=== PATIENT | female | born 1955 | race Caucasian/White ===

== ENCOUNTER 2018-06-07 12:07 | Emergency (ER) | payer BC ==
[2018-06-07 12:48] VITALS: BP 150/75; PULSE 77; RESP 18; TEMP 98.2
--- NOTE | 2018-06-07 14:36 | ED ---
ENT HPI - General Chief complaint: ENT Stated complaint: ear pain Time Seen by Provider: 06/07/18 14:03 Source: patient, RN notes reviewed, old records reviewed Mode of arrival: ambulatory Limitations: no limitations - History of Present Illness Initial comments: Patient is a 8-year-old female who presents emergency room today with chief complaint of feeling a fullness within her left ear. Patient reports symptoms started after she took a shower. She feels like her ear is swollen. Patient states that she does not typically cleaning her ears areas she reports that she does use Q-tips. She states that her hearing feels somewhat foggy and can feel the water within the ear. - Related Data Home Medications Medication Instructions Recorded Confirmed Lisinopril [Zestril] 10 mg PO DAILY 06/07/18 06/07/18 Previous Rx's Medication Instructions Recorded Carbamide Peroxide [Debrox Otic] 5 drops BOTH EARS BID #1 bottle 06/07/18 Ciprofloxacin Ophth Soln [Cipro 10 drops LEFT EAR BID #1 bottle 06/07/18 Ophth Soln] Meclizine [Antivert] 25 mg PO BID #10 tab 06/07/18 Allergies Allergy/AdvReac Type Severity Reaction Status Date / Time No Known Allergies Allergy Verified 06/07/18 12:48 Review of Systems ROS Statement: Those systems with pertinent positive or pertinent negative responses have been documented in the HPI. ROS Other: All systems not noted in ROS Statement are negative. Past Medical History Past Medical History: Hypertension History of Any Multi-Drug Resistant Organisms: None Reported Past Surgical History: No Surgical Hx Reported Past Psychological History: No Psychological Hx Reported Smoking Status: Never smoker Past Alcohol Use History: None Reported Past Drug Use History: None Reported General Exam - General Exam Comments Initial Comments: 8-year-old female. Alert and oriented. No significant distress. Limitations: no limitations General appearance: alert, in no apparent distress Head exam: Present: atraumatic, normocephalic, normal inspection Eye exam: Present: normal appearance, PERRL, EOMI. Absent: scleral icterus, conjunctival injection, periorbital swelling ENT exam: Present: normal exam, mucous membranes moist, other (cerumen impaction left ear. Unable to visualize TM). Absent: TM's normal bilaterally Neck exam: Present: normal inspection. Absent: tenderness, meningismus, lymphadenopathy Respiratory exam: Present: normal lung sounds bilaterally. Absent: respiratory distress, wheezes, rales, rhonchi, stridor Cardiovascular Exam: Present: regular rate, normal rhythm, normal heart sounds. Absent: systolic murmur, diastolic murmur, rubs, gallop, clicks GI/Abdominal exam: Present: soft, normal bowel sounds. Absent: distended, tenderness, guarding, rebound, rigid Extremities exam: Present: normal inspection, full ROM, normal capillary refill. Absent: tenderness, pedal edema, joint swelling, calf tenderness Back exam: Present: normal inspection Neurological exam: Present: alert, oriented X3, CN II-XII intact Psychiatric exam: Present: normal affect, normal mood Skin exam: Present: warm, dry, intact, normal color. Absent: rash Course Vital Signs 06/07/18 12:45 Temperature 98.2 F Pulse Rate 77 Respiratory 18 Rate Blood Pressure 150/75 O2 Sat by Pulse 100 Oximetry Procedures - Ear Wax Removal Both Ears Ear Canal Irrigated by: other (PA) Ear Canal Irrigated With: warm saline using syringe/angiocath Ear Canal(s) Curetted: plastic scoops Results: Re-examined: cerumen removed completely (L ear), some cerumen remains ( R ear ) TM Visible: TM(s) intact, normal appearance Ear Canal: bleeding Noted (R ear) Patient Tolerated Procedure: well Complications: vertigo/dizziness Medical Decision Making - Medical Decision Making 68 year old female presents with L ear fullness. She has singificant impaction of cerumen in both ears. Patient ears irrigated with angiocath and sterile water. Cerumen removed from L ear completely, some remains in R ear. Discussed patient needs to use debrox drops. Discussed having patient use antibiotic ear drop due to scratched R ear canal. She had some dizziness with irrigation, DC with meclizine script. PAtient tolerated procedure well. Disposition Clinical Impression: Impacted cerumen of both ears Disposition: HOME SELF-CARE Condition: Good Instructions (If sedation given, give patient instructions): Cerumen Impaction (ED) Additional Instructions: Follow-up with primary care physician. ancillary antibiotic drops 5 drops in each ear twice a day. Patient should also put the direct strep smear. He may need to return to PCP or here for cerumen impaction in the right ear. Return to emergency department if any alarming signs or symptoms occur. Prescriptions: Carbamide Peroxide [Debrox Otic] 5 drops BOTH EARS BID #1 bottle Ciprofloxacin Ophth Soln [Cipro Ophth Soln] 10 drops LEFT EAR BID #1 bottle Meclizine [Antivert] 25 mg PO BID #10 tab Is patient prescribed a controlled substance at d/c from ED?: No Referrals: Melina Santa MD [Primary Care Provider] - 1-2 days Time of Disposition: 14:36
== END 2018-06-07 14:46 | disposition home or self-care (01) ==
LOC: EC 12:07
DX: H61.23 Impacted cerumen, bilateral (principal); R42 Dizziness and giddiness; I10 Essential (primary) hypertension; Z79.899 Other long term (current) drug therapy
CPT/HCPCS: 69210; 99283

== ENCOUNTER 2020-08-25 15:39 | Observation (INO) | payer BC ==
[2020-08-25 16:21] LABS: Basophils % (A) 0 %; Eosinophils # (A) 0.1 k/uL (0-0.7); Eosinophils % (A) 3 %; HCT 37.4 % (34.0-46.0); HGB 12.5 gm/dL (11.4-16.0); Lymphocytes # (A) 0.8 k/uL (1.0-4.8); Lymphocytes % (A) 22 %; MCH 33.3 pg (25.0-35.0); MCHC 33.4 g/dL (31.0-37.0); MCV 99.6 fL (80.0-100.0); Mean Platelet Volume 7.2; Monocytes # (A) 0.2 k/uL (0-1.0); Monocytes % (A) 5 %; Neutrophils # (A) 2.7 k/uL (1.3-7.7); Neutrophils % (A) 69 %; Platelet Count 138 k/uL (150-450); RBC 3.76 m/uL (3.80-5.40); RDW 14.1 % (11.5-15.5); WBC 3.9 k/uL (3.8-10.6)
--- NOTE | 2020-08-25 16:28 | CT ---
EXAMINATION TYPE: CT brain wo con DATE OF EXAM: 08/25/2020 COMPARISON: None INDICATION: Weakness and fatigue. DLP: 1086.4 mGycm, Automated exposure control for dose reduction was used. CONTRAST: None CT of the brain is performed utilizing 3 mm thick sections through the posterior fossa and 3 mm thick sections through the remaining calvarium. Study is performed within 24 hours of arrival to the hosp [facility]. No abnormal hyperdensity is present to suggest an acute intracranial hemorrhage. No mass lesion is evident. No acute infarcts are evident. Some white matter changes are within the bilateral basal ganglion. Mil d periventricular white matter changes may be present superiorly. Ventricles and sulci are appropriate for the patient age. Paranasal sinuses and mastoid air cells within the [id number] are clear. IMPRESSIONS: 1. Suggestion of some chronic appearing periventricular white matter ischemic-type changes. 2. No acute intracranial process
[2020-08-25 16:30] LABS: ALT 11 U/L (4-34); AST 20 U/L (14-36); African American GFR (CKD) >90 (>60 ml/min/1.73 sqM); Albumin 4.4 g/dL (3.5-5.0); Alkaline Phosphatase 58 U/L (38-126); Anion Gap 7 mmol/L; Blood Urea Nitrogen 10 mg/dL (7-17); Calcium 9.4 mg/dL (8.4-10.2); Carbon Dioxide 25 mmol/L (22-30); Chloride 99 mmol/L (98-107); Glucose 101 mg/dL (74-99); Magnesium 2.2 mg/dL (1.6-2.3); Non-African American GFR(CKD) >90 (>60 ml/min/1.73 sqM); Potassium 4.3 mmol/L (3.5-5.1); Sodium 131 mmol/L (137-145); Total Bilirubin 0.8 mg/dL (0.2-1.3)
[2020-08-25 16:36] LABS: Prothrombin Time 10.9 sec (9.0-12.0)
--- NOTE | 2020-08-25 16:57 | XR ---
EXAMINATION TYPE: XR chest 2V DATE OF EXAM: 08/25/2020 COMPARISON: NONE HISTORY: Weakness TECHNIQUE: 2 views FINDINGS: Heart and mediastinum are normal. Lungs are clear. Diaphragm is normal. Bony thorax is inta ct. There are chest leads. IMPRESSION: No active cardiopulmonary disease. Normal heart.
[2020-08-25 18:01] LABS: Amorphous Sediment,Urine Few /hpf; Appearance,Urine Cloudy (Clear); Bilirubin,Urine Negative (Negative); Blood,Urine Negative (Negative); Color,Urine Yellow; Glucose,Urine (UA) Negative (Negative); Ketones,Urine 2+ (Negative); Leukocyte Esterase,Urine Negative (Negative); Mucus,Urine Rare /hpf; Nitrite,Urine Negative (Negative); Protein,Urine Negative (Negative); Specific Gravity,Urine 1.013 (1.001-1.035); Squamous Epithelial Cell,Urine <1 /hpf (0-4); Urobilinogen,Urine <2.0 mg/dL (<2.0); WBC,Urine <1 /hpf (0-5)
--- NOTE | 2020-08-25 18:11 | ED ---
Weakness HPI - General Chief complaint: Weakness Stated complaint: Nausea Time Seen by Provider: 08/25/20 15:46 Source: EMS Mode of arrival: EMS Limitations: no limitations - History of Present Illness Initial comments: 64-year-old female history of essential tremor present to the ER today for chief complaint of weakness nausea increased tremor. Patient states that she has been weak since Friday as she has been very nauseated and eating and drinking less. Patient states that she also feels like her tremor has worsened. Patient states that her nauseous and worse the past 2 days but currently she is not feeling nauseated. Patient denies any chest pain pressure or shortness of breath jaw or arm pain and she denies any back pain abdominal pain fevers cough congestion she denies any vomiting diarrhea or abdominal pain. She denies any headache visual changes double vision neck stiffness. Patient denies history of anticoagulation use her atrial fibrillation. Patient has no additional complaints or concerns she states that she feels so weak and shaky that she can barely walk - Related Data Home Medications Medication Instructions Recorded Confirmed lisinopriL [Zestril] 10 mg PO DAILY 06/07/18 08/25/20 Primidone [Mysoline] 25 mg PO DAILY PRN 08/25/20 08/25/20 Primidone [Mysoline] 50 mg PO HS 08/25/20 08/25/20 prednisoLONE ACETATE 1% OPHTH 1 drops RIGHT EYE BID 08/25/20 08/25/20 [Pred Forte 1%] Allergies Allergy/AdvReac Type Severity Reaction Status Date / Time No Known Allergies Allergy Verified 08/25/20 16:49 Review of Systems ROS Statement: Those systems with pertinent positive or pertinent negative responses have been documented in the HPI. ROS Other: All systems not noted in ROS Statement are negative. Past Medical History Past Medical History: Hypertension History of Any Multi-Drug Resistant Organisms: None Reported Past Surgical History: No Surgical Hx Reported Past Psychological History: No Psychological Hx Reported Smoking Status: Former smoker Past Alcohol Use History: None Reported Past Drug Use History: None Reported General Exam - General Exam Comments Initial Comments: General: The patient is awake and alert, in no distress Eye: +3 mm pupils are equal, round and reactive to light, extra-ocular movements are intact. No nystagmus. There is normal conjunctiva bilaterally. No signs of icterus. Ears, nose, mouth and throat: There are moist mucous membranes and no oral lesions. Neck: The neck is supple, there is no tenderness or JVD. Cardiovascular: There is a regular rate and rhythm. No murmur, rub or gallop is appreciated. Respiratory: Lungs are clear to auscultation, respirations are non-labored, breath sounds are equal. No wheezes, stridor, rales, or rhonchi. Gastrointestinal: [Soft, non-distended, non-tender abdomen without masses or organomegaly noted. There is no rebound or guarding present. Musculoskeletal: Normal ROM, no tenderness. Strength 5/5. Sensation intact. Radial pulses equal bilaterally 2+. Neurological: A&O x 3. CN II-XII intact, There are no obvious motor or sensory deficits. Coordination appears grossly intact. Speech is normal. Skin: Skin is warm and dry and no rashes or lesions are noted. No leg swelling. Psychiatric: Cooperative, appropriate mood & affect, normal judgment. Limitations: no limitations Course Vital Signs 08/25/20 08/25/20 15:41 18:34 Temperature 98.7 F Pulse Rate 96 86 Respiratory 16 16 Rate Blood Pressure 146/86 175/98 O2 Sat by Pulse 97 98 Oximetry Medical Decision Making - Medical Decision Making 64yo female presenting for nausea. New-onset atrial fibrillation it appears patient is an a flutter with a 4-[address] segment abnormalities. Troponin negative. Patient denies any chest pressure or shortness of breath. Patient states she feels dehydrated and weak her tremor is quite significant in all [address] of the brain is negative chest x-ray clear at this time we will keep patient for hydration and cardiology evaluation patient is agreeable to this care plan as well as admission. Dr Graf agreeable to care plan. - Lab Data Result diagrams: 08/25/20 16:09 08/25/20 16:09 Lab Results 08/25/20 08/25/20 08/25/20 Range/Units 16:09 16:09 16:09 WBC 3.9 (3.8-10.6) k/uL RBC 3.76 L (3.80-5.40) m/uL Hgb 12.5 (11.4-16.0) gm/dL Hct 37.4 (34.0-46.0) % MCV 99.6 (80.0-100.0) fL MCH 33.3 (25.0-35.0) pg MCHC 33.4 (31.0-37.0) g/dL RDW 14.1 (11.5-15.5) % Plt Count 138 L (150-450) k/uL MPV 7.2 Neutrophils % 69 % Lymphocytes % 22 % Monocytes % 5 % Eosinophils % 3 % Basophils % 0 % Neutrophils # 2.7 (1.3-7.7) k/uL Lymphocytes # 0.8 L (1.0-4.8) k/uL Monocytes # 0.2 (0-1.0) k/uL Eosinophils # 0.1 (0-0.7) k/uL Basophils # 0.0 (0-0.2) k/uL PT 10.9 (9.0-12.0) sec INR 1.0 (<1.2) APTT 23.0 (22.0-30.0) sec Sodium 131 L (137-145) mmol/L Potassium 4.3 (3.5-5.1) mmol/L Chloride 99 (98-107) mmol/L Carbon Dioxide 25 (22-30) mmol/L Anion Gap 7 mmol/L BUN 10 (7-17) mg/dL Creatinine 0.65 (0.52-1.04) mg/dL Est GFR (CKD-EPI)AfAm >90 (>60 ml/min/1.73 sqM) Est GFR (CKD-EPI)NonAf >90 (>60 ml/min/1.73 sqM) Glucose 101 H (74-99) mg/dL Plasma Lactic Acid Miguel A (0.7-2.0) mmol/L Calcium 9.4 (8.4-10.2) mg/dL Magnesium 2.2 (1.6-2.3) mg/dL Total Bilirubin 0.8 (0.2-1.3) mg/dL AST 20 (14-36) U/L ALT 11 (4-34) U/L Alkaline Phosphatase 58 (38-126) U/L Troponin I (0.000-0.034) ng/mL Total Protein 7.0 (6.3-8.2) g/dL Albumin 4.4 (3.5-5.0) g/dL TSH 0.799 (0.465-4.680) mIU/L Urine Color Urine Appearance (Clear) Urine pH (5.0-8.0) Ur Specific [place] (1.001-1.035) Urine Protein (Negative) Urine Glucose (UA) (Negative) Urine Ketones (Negative) Urine Blood (Negative) Urine Nitrite (Negative) Urine Bilirubin (Negative) Urine Urobilinogen (<2.0) mg/dL Ur Leukocyte Esterase (Negative) Urine WBC (0-5) /hpf Ur Squamous Epith Cells (0-4) /hpf Amorphous Sediment (None) /hpf Urine Mucus (None) /hpf 08/25/20 08/25/20 08/25/20 Range/Units 16:09 16:09 17:28 WBC (3.8-10.6) k/uL RBC (3.80-5.40) m/uL Hgb (11.4-16.0) gm/dL Hct (34.0-46.0) % MCV (80.0-100.0) fL MCH (25.0-35.0) pg MCHC (31.0-37.0) g/dL RDW (11.5-15.5) % Plt Count (150-450) k/uL MPV Neutrophils % % Lymphocytes % % Monocytes % % Eosinophils % % Basophils % % Neutrophils # (1.3-7.7) k/uL Lymphocytes # (1.0-4.8) k/uL Monocytes # (0-1.0) k/uL Eosinophils # (0-0.7) k/uL Basophils # (0-0.2) k/uL PT (9.0-12.0) sec INR (<1.2) APTT (22.0-30.0) sec Sodium (137-145) mmol/L Potassium (3.5-5.1) mmol/L Chloride (98-107) mmol/L Carbon Dioxide (22-30) mmol/L Anion Gap mmol/L BUN (7-17) mg/dL Creatinine (0.52-1.04) mg/dL Est GFR (CKD-EPI)AfAm (>60 ml/min/1.73 sqM) Est GFR (CKD-EPI)NonAf (>60 ml/min/1.73 sqM) Glucose (74-99) mg/dL Plasma Lactic Acid Miguel A 1.0 (0.7-2.0) mmol/L Calcium (8.4-10.2) mg/dL Magnesium (1.6-2.3) mg/dL Total Bilirubin (0.2-1.3) mg/dL AST (14-36) U/L ALT (4-34) U/L Alkaline Phosphatase (38-126) U/L Troponin I <0.012 (0.000-0.034) ng/mL Total Protein (6.3-8.2) g/dL Albumin (3.5-5.0) g/dL TSH (0.465-4.680) mIU/L Urine Color Yellow Urine Appearance Cloudy H (Clear) Urine pH 7.0 (5.0-8.0) Ur Specific [place] 1.013 (1.001-1.035) Urine Protein Negative (Negative) Urine Glucose (UA) Negative (Negative) Urine Ketones 2+ H (Negative) Urine Blood Negative (Negative) Urine Nitrite Negative (Negative) Urine Bilirubin Negative (Negative) Urine Urobilinogen <2.0 (<2.0) mg/dL Ur Leukocyte Esterase Negative (Negative) Urine WBC <1 (0-5) /hpf Ur Squamous Epith Cells <1 (0-4) /hpf Amorphous Sediment Few H (None) /hpf Urine Mucus Rare H (None) /hpf Disposition Clinical Impression: Atrial flutter, Weakness, Dehydration, Nausea Disposition: ADMITTED IP TO THIS [facility] Condition: Stable Is patient prescribed a controlled substance at d/c from ED?: No Referrals: Melina Santa MD [Primary Care Provider] - 1-2 days Time of Disposition: 19:03 Decision to Admit Reason: Admit from EC Decision Date: 08/25/20 Decision Time: 19:03
[2020-08-25] MEDS ORDERED: SODIUM CHLORIDE 0.9% 500 ML 500 ML IV ONE (19:02)
[2020-08-25] MEDS ORDERED: NALOXONE 0.4 MG/ML 1 ML VIAL IV PRN (19:03)
[2020-08-25] MEDS: SODIUM CHLORIDE 0.9% 1,000 ML IV SCH (19:15)
[2020-08-25] MEDS ORDERED: PRIMIDONE 25 MG TAB PO PRN (22:20)
[2020-08-25] MEDS: lisinopriL 10 MG TAB PO SCH (23:32)
[2020-08-25] MEDS: HEPARIN SODIUM,PORCINE/PF 5,000 UNIT/0.5 ML SYRINGE SQ SCH (23:32)
[2020-08-25] MEDS: PRIMIDONE 50 MG TAB PO SCH (23:32)
[2020-08-26] MEDS: HEPARIN SODIUM,PORCINE/PF 5,000 UNIT/0.5 ML SYRINGE SQ SCH ×3 (01:53→16:05)
[2020-08-26 09:32] LABS: African American GFR (CKD) 113.2 (60.0-200.0); Anion Gap 8.6 mmol/L (4.00-12.00); BUN/Creat Ratio 11.67 Ratio (12.00-20.00); Calcium 8.5 mg/dL (8.7-10.3); Carbon Dioxide 25.4 mmol/L (21.6-31.8); Non-African American GFR(CKD) 97.7 (60.0-200.0); Potassium 3.7 mmol/L (3.5-5.5)
[2020-08-26 10:04] VITALS: RESP 16
[2020-08-26] MEDS: prednisoLONE ACETATE 1% OPHTH DROPS 5 ML BTL RIGHT EYE SCH ×2 (10:14→20:51)
[2020-08-26] MEDS: SODIUM CHLORIDE 0.9% 1,000 ML IV SCH (11:50)
[2020-08-26] MEDS: ONDANSETRON 4 MG/2 ML VIAL IVP PRN ×2 (11:51→20:04)
--- NOTE | 2020-08-26 12:21 | P.HPIM ---
History of Present Illness Patient was a 64-year-old the female came in with complaints of a severe nausea no vomiting. Patient has not been eating or drinking well for last few days because of the severe nausea. Patient appeared to be dehydrated because of which patient was admitted patient was hyponatremic received IV fluids hyponatremia improved skin turgor improved. Patient was also found to be in atrial flutter. Patient does have history of hiatal hernia. Patient has a significant tremor which is essential tremor for which patient is on primidone. This atrial flutter is new. Patient believes her uncontrolled tremor is secondary to her nausea and doesn't want me to add any other new medications until we control nausea. Review of Systems REVIEW OF SYSTEMS: CONSTITUTIONAL: No fever, no malaise, no fatigue. HEENT: No recent visual problems or hearing problems. Denied any sore throat. CARDIOVASCULAR: No chest pain, orthopnea, PND, no palpitations, no syncope. PULMONARY: No shortness of breath, no cough, no hemoptysis. GASTROINTESTINAL: No diarrhea,no vomiting, no abdominal pain. NEUROLOGICAL: No headaches, no weakness, no numbness. HEMATOLOGICAL: Denies any bleeding or petechiae. GENITOURINARY: Denies any burning micturition, frequency, or urgency. MUSCULOSKELETAL/RHEUMATOLOGICAL: Denies any joint pain, swelling, or any muscle pain. ENDOCRINE: Denies any polyuria or polydipsia. The rest of the 14-point review of systems is negative. Past Medical History Past Medical History: Hypertension Additional Past Medical History / Comment(s): essential tremors, hiatal hernia History of Any Multi-Drug Resistant Organisms: None Reported Past Surgical History: No Surgical Hx Reported Past Psychological History: No Psychological Hx Reported Smoking Status: Never smoker Past Alcohol Use History: None Reported Past Drug Use History: None Reported Medications and Allergies Home Medications Medication Instructions Recorded Confirmed Type lisinopriL [Zestril] 10 mg PO DAILY 06/07/18 08/25/20 History Primidone [Mysoline] 25 mg PO DAILY PRN 08/25/20 08/25/20 History Primidone [Mysoline] 50 mg PO HS 08/25/20 08/25/20 History prednisoLONE ACETATE 1% OPHTH 1 drops RIGHT EYE BID 08/25/20 08/25/20 History [Pred Forte 1%] Allergies Allergy/AdvReac Type Severity Reaction Status Date / Time No Known Allergies Allergy Verified 08/25/20 16:49 Physical Exam Vitals: Vital Signs Temp Pulse Pulse Resp BP BP BP 08/26/20 07:00 98 F 74 16 132/76 08/26/20 02:00 97.8 F 60 15 131/74 08/26/20 01:52 85 16 08/25/20 20:45 16 08/25/20 20:30 97.2 F L 85 16 165/74 08/25/20 19:59 98.1 F 96 18 148/87 08/25/20 18:34 86 16 175/98 08/25/20 15:41 98.7 F 96 16 146/86 Pulse Ox 08/26/20 07:00 97 08/26/20 02:00 97 08/26/20 01:52 08/25/20 20:45 08/25/20 20:30 97 08/25/20 19:59 97 08/25/20 18:34 98 08/25/20 15:41 97 Intake and Output 08/25/20 08/26/20 08/26/20 22:59 06:59 14:59 Intake Total 240 Balance 240 Intake: Oral 240 Other: # Voids 1 1 Weight 68.039 kg PHYSICAL EXAMINATION: GENERAL: The patient is alert and oriented x3, not in any acute distress. Well developed, well nourished. Patient has uncontrollable essential tremor HEENT: Pupils are round and equally reacting to light. EOMI. No scleral icterus. No conjunctival pallor. Normocephalic, atraumatic. No pharyngeal erythema. No thyromegaly. CARDIOVASCULAR: S1 and S2 present. No murmurs, rubs, or gallops. PULMONARY: Chest is clear to auscultation, no wheezing or crackles. ABDOMEN: Soft, nontender, nondistended, normoactive bowel sounds. No palpable organomegaly. MUSCULOSKELETAL: No joint swelling or deformity. EXTREMITIES: No cyanosis, clubbing, or pedal edema. NEUROLOGICAL: Gross neurological examination did not reveal any focal deficits. SKIN: No rashes. Results CBC & Chem 7: 08/25/20 16:09 08/26/20 05:59 Labs: Abnormal Lab Results - Last 24 Hours (Table) 08/25/20 08/25/20 08/25/20 Range/Units 16:09 16:09 17:28 RBC 3.76 L (3.80-5.40) m/uL Plt Count 138 L (150-450) k/uL Lymphocytes # 0.8 L (1.0-4.8) k/uL Sodium 131 L (137-145) mmol/L BUN (9.0-27.0) mg/dL BUN/Creatinine Ratio (12.00-20.00) Ratio Glucose 101 H (74-99) mg/dL Calcium (8.7-10.3) mg/dL Urine Appearance Cloudy H (Clear) Urine Ketones 2+ H (Negative) Amorphous Sediment Few H (None) /hpf Urine Mucus Rare H (None) /hpf 08/26/20 Range/Units 05:59 RBC (3.80-5.40) m/uL Plt Count (150-450) k/uL Lymphocytes # (1.0-4.8) k/uL Sodium (137-145) mmol/L BUN 7.0 L (9.0-27.0) mg/dL BUN/Creatinine Ratio 11.67 L (12.00-20.00) Ratio Glucose (74-99) mg/dL Calcium 8.5 L (8.7-10.3) mg/dL Urine Appearance (Clear) Urine Ketones (Negative) Amorphous Sediment (None) /hpf Urine Mucus (None) /hpf Thrombosis Risk Factor Assmnt - Choose All That Apply Each Risk Factor Represents 2 Points: Age 61-74 years Thrombosis Risk Factor Assessment Total Risk Factor Score: 2 Thrombosis Risk Factor Assessment Level: Low Risk Assessment and Plan Plan: -Nausea: Probably severity esophagitis patient was started on Protonix and if her nausea improves patient was started on diet and related and advance it. Patient the does well with diet patient will be discharged at that time. -History of hiatal hernia. The patient's symptoms improve patient will be discharged on Prilosec for about a month and if her symptoms continue then patient will need follow-up with gastroenterology and will need the upper GI endoscopy and need to be evaluated for surgical intervention symptoms are not controlled with the medications. -New-onset atrial flutter: To continue to dehydration cardiology will evaluate the patient, I did not start her on beta dewayne or anticoagulation leave the decision to cardiology. -Benign essential tremor for which patient is on primidone which will be continued -Hypertension continue with lisinopril -DVT prophylaxis early ambulation
--- NOTE | 2020-08-26 12:22 | P.DS ---
Providers Date of admission: 08/25/20 18:58 Attending physician: Ada Panda Consults: 08/25/20 22:24 Consult Physician Routine Consulting Provider: Wilfredo Jimenez Consult Reason/Comments: Alfred Do you want consulting provider notified?: Yes, Notify in am Primary care physician: Melina [facility] Course: As mentioned in HPI Patient Condition at Discharge: Stable Plan - Discharge Summary New Discharge Prescriptions: New Omeprazole [PriLOSEC] 40 mg PO AC-BRKFST #30 capsule. Continue lisinopriL [Zestril] 10 mg PO DAILY prednisoLONE ACETATE 1% OPHTH [Pred Forte 1%] 1 drops RIGHT EYE BID Primidone [Mysoline] 25 mg PO DAILY PRN PRN Reason: TREMORS Primidone [Mysoline] 50 mg PO HS Discharge Medication List lisinopriL [Zestril] 10 mg PO DAILY 06/07/18 [History] Primidone [Mysoline] 25 mg PO DAILY PRN 08/25/20 [History] Primidone [Mysoline] 50 mg PO HS 08/25/20 [History] prednisoLONE ACETATE 1% OPHTH [Pred Forte 1%] 1 drops RIGHT EYE BID 08/25/20 [History] Omeprazole [PriLOSEC] 40 mg PO AC-BRKFST #30 capsule. 08/26/20 [Rx] Follow up Appointment(s)/Referral(s): Melina Santa MD [Primary Care Provider] - 3 Days Discharge Disposition: HOME SELF-CARE
[2020-08-26] MEDS ORDERED: POTASSIUM CHLORIDE ER 20 MEQ TAB.ER PO STA (12:23)
[2020-08-26] MEDS: PANTOPRAZOLE 40 MG/10 ML VIAL IVP SCH ×2 (13:11→20:04)
--- NOTE | 2020-08-26 14:32 | ECHOF ---
Referral Reason:heart function MEASUREMENTS -------- HEIGHT: 165.1 cm WEIGHT: 68.0 kg BP: 131/74 RVIDd: 3.3 cm (< 3.3) IVSd: 1.0 cm (0.6 - 1.1) LVIDd: 4.5 cm (3.9 - 5.3) LVPWd: 0.9 cm (0.6 - 1.1) IVSs: 1.5 cm LVIDs: 2.8 cm LVPWs: 1.6 cm LA Diam: 2.8 cm (2.7 - 3.8) LAESV Index (A-L): 22.41 ml/m Ao Diam: 3.6 cm (2.0 - 3.7) AV Cusp: 2.0 cm (1.5 - 2.6) MV EXCURSION: 18.547 mm (> 18.000) MV EF SLOPE: 118 mm/s (70 - 150) EPSS: 0.7 cm MV E Lai: 0.77 m/s MV DecT: 231 ms MV A Lai: 0.74 m/s MV E/A Ratio: 1.04 RAP: 5.00 mmHg RVSP: 22.12 mmHg FINDINGS -------- This was a technically good study. The left ventricular size is normal. Left ventricular wall thickness is normal. Overall left vent ricular systolic function is normal with, an EF between 55 - 60 %. The right ventricle is normal in size. Normal LA size by volume 22+/-6 ml/m2. The right atrium is normal in size. Interatrial and interventricular septum intact. The aortic valve is trileaflet, and appears structurally normal. No aortic stenosis or regurgitation. Mild mitral regurgitation is present. Mild tricuspid regurgitation present. Right ventricular systolic pressure is normal at < 35 mmHg. There is no pulmonic regurgitation present. The aortic root size is normal. Normal inferior vena cava with normal inspiratory collapse consistent with estimated right atrial pre ssure of 5 mmHg. There is no pericardial effusion. CONCLUSIONS -------- 1. The left ventricular size is normal. 2. Left ventricular wall thickness is normal. 3. Overall left ventricular systolic function is normal with, an EF between 55 - 60 %. 4. The right ventricle is normal in size. 5. The aortic valve is trileaflet, and appears structurally normal. No aortic stenosis or regurgitati on. 6. Mild mitral regurgitation is present. 7. Mild tricuspid regurgitation present. 8. There is no pericardial effusion. [employer]ED [employer] MESSENGER: Flores Godwin RDCS
[2020-08-26] MEDS: lisinopriL 10 MG TAB PO SCH (16:04)
--- NOTE | 2020-08-26 17:35 | CONS ---
CONSULTATION Mrs. Violeta Andrews is a 64-year-old lady, a who has been admitted to the hospital with dehydration. She came in with significant nausea, maybe some vomiting and was not eating or drinking for 2-3 days and she came with severe hypokalemia and hypomagnesemia. While she was here, the EKG was performed and there was a question of atrial flutter. The patient has underlying benign tremor as well. On reviewing the EKG, it appears that this is an artifact. Patient is actually in sinus rhythm with nonspecific ST changes. Her dehydration has been addressed by IV fluids and her electrolytes are also being corrected. She feels much better today. I have recommended an echocardiogram to be performed, which was done and reviewed and echo revealed normal systolic function. At the time of my evaluation, she is doing well without any significant symptoms. PAST MEDICAL HISTORY: This includes benign tremor and hypertension. She has no other major history. MEDICATIONS: Include Zestril 10 mg daily, primidone 25 mg daily, extra dose as needed. ALLERGIES: None. REVIEW OF SYSTEMS: Unremarkable other than above-mentioned facts. EXAMINATION: Vitals are stable. No JVD. S1, S2 heard normally. No significant murmurs. LUNGS are clear. ABDOMEN is soft, nontender. Lower EXTREMITIES reveal normal pulses. No edema. CENTRAL NERVOUS SYSTEM is normal. Patient has benign tremor which is evident. EKG revealed sinus rhythm, a lot of baseline artifact. No evidence of any significant abnormalities. Nonspecific ST-T changes noted. IMPRESSION: 1. There is no evidence of atrial flutter. 2. Patient has dehydration and electrolyte imbalance which has been corrected. 3. Echocardiogram revealed normal function. RECOMMENDATIONS: No further intervention from a cardiac standpoint. Patient can be discharged whenever it is okay with the admitting doctor. MMODL / IJN: [id number] /
[2020-08-26] MEDS: PRIMIDONE 50 MG TAB PO SCH (20:05)
[2020-08-27] MEDS: HEPARIN SODIUM,PORCINE/PF 5,000 UNIT/0.5 ML SYRINGE SQ SCH ×2 (01:51→08:55)
[2020-08-27] MEDS: SODIUM CHLORIDE 0.9% 1,000 ML IV SCH (01:51)
[2020-08-27] MEDS: PANTOPRAZOLE 40 MG/10 ML VIAL IVP SCH (08:55)
[2020-08-27] MEDS: prednisoLONE ACETATE 1% OPHTH DROPS 5 ML BTL RIGHT EYE SCH (08:55)
[2020-08-27 09:30] VITALS: BP 132/73; PULSE 84; TEMP 98.4
--- NOTE | 2020-08-27 11:58 | P.DS ---
Providers Date of admission: 08/25/20 18:58 Attending physician: Ada Panda Consults: 08/25/20 22:24 Consult Physician Routine Consulting Provider: Wilfredo Jimenez Consult Reason/Comments: A.flutter Do you want consulting provider notified?: Yes, Notify in am Primary care physician: Melina [facility] Course: Patient was a 64-year-old the female came in with complaints of a severe nausea no vomiting. Patient has not been eating or drinking well for last few days because of the severe nausea. Patient appeared to be dehydrated because of which patient was admitted patient was hyponatremic received IV fluids hyponatremia improved skin turgor improved. Patient was also found to be in atrial flutter. Patient does have history of hiatal hernia. Patient has a significant tremor which is essential tremor for which patient is on primidone. This atrial flutter is new. Patient believes her uncontrolled tremor is secondary to her nausea and doesn't want me to add any other new medications until we control nausea. 08/27/2020 Patient is still having mild nausea but able to tolerate diet fairly well. Patient will be discharged on empiric Proton inhibitor for 14 days and if her symptom doesn't improve, patient will need to follow up with gastroenterology for an upper GI endoscopy at that time. A she was evaluated by cardiology and they believe they atrial flutter that we are seeing on the EKG is an artifact and no further recommendations were made. Patient still has tremor but wanted to see her neurologist before we change any medications or add any medications. Echocardiogram did not show any significant abnormality PHYSICAL EXAMINATION: GENERAL: The patient is alert and oriented x3, not in any acute distress. Well developed, well nourished. Patient has uncontrollable essential tremor HEENT: Pupils are round and equally reacting to light. EOMI. No scleral icterus. No conjunctival pallor. Normocephalic, atraumatic. No pharyngeal erythema. No thyromegaly. CARDIOVASCULAR: S1 and S2 present. No murmurs, rubs, or gallops. PULMONARY: Chest is clear to auscultation, no wheezing or crackles. ABDOMEN: Soft, nontender, nondistended, normoactive bowel sounds. No palpable organomegaly. MUSCULOSKELETAL: No joint swelling or deformity. EXTREMITIES: No cyanosis, clubbing, or pedal edema. NEUROLOGICAL: Gross neurological examination did not reveal any focal deficits. SKIN: No rashes. Assessment and Plan Plan: -Nausea: Probably severity esophagitis improved with Protonix will be discharged on empiric PPI. -History of hiatal hernia. -Benign essential tremor for which patient is on primidone which will be continued -Hypertension continue with lisinopril Patient Condition at Discharge: Stable Plan - Discharge Summary New Discharge Prescriptions: New Omeprazole [PriLOSEC] 40 mg PO AC-BRKFST #30 capsule. polyethylene glycoL 3350 [Miralax] 17 gm PO DAILY PRN #15 packet PRN Reason: Constipation Continue lisinopriL [Zestril] 10 mg PO DAILY prednisoLONE ACETATE 1% OPHTH [Pred Forte 1%] 1 drops RIGHT EYE BID Primidone [Mysoline] 25 mg PO DAILY PRN PRN Reason: TREMORS Primidone [Mysoline] 50 mg PO HS Discharge Medication List lisinopriL [Zestril] 10 mg PO DAILY 06/07/18 [History] Primidone [Mysoline] 25 mg PO DAILY PRN 08/25/20 [History] Primidone [Mysoline] 50 mg PO HS 08/25/20 [History] prednisoLONE ACETATE 1% OPHTH [Pred Forte 1%] 1 drops RIGHT EYE BID 08/25/20 [History] Omeprazole [PriLOSEC] 40 mg PO AC-BRKFST #30 capsule. 08/26/20 [Rx] polyethylene glycoL 3350 [Miralax] 17 gm PO DAILY PRN #15 packet 08/27/20 [Rx] Follow up Appointment(s)/Referral(s): Jane Jimenez MD [STAFF PHYSICIAN] - 2 Weeks (Please call Friday morning to make appointment) Melina Santa MD [Primary Care Provider] - 3 Days (Please call Friday morning to make appointment) Patient Instructions/Handouts: Dehydration (DC), Acute Nausea and Vomiting (DC) Discharge Disposition: HOME SELF-CARE
== END 2020-08-27 12:55 | disposition home or self-care (01) ==
LOC: EC 15:39 → 6NMEDSUR 18:58
PROVIDERS: ADMIT Internal Medicine; ATTEND Internal Medicine
DX: I48.92 Unspecified atrial flutter (principal); E86.0 Dehydration; E87.1 Hypo-osmolality and hyponatremia; R11.0 Nausea; G25.0 Essential tremor; I10 Essential (primary) hypertension; I08.1 Rheumatic disorders of both mitral and tricuspid valves; K44.9 Diaphragmatic hernia without obstruction or gangrene; Z79.899 Other long term (current) drug therapy; Z87.891 Personal history of nicotine dependence; Z20.822 Contact with and (suspected) exposure to COVID-19
CPT/HCPCS: 96376 ×2; 96361 ×2; 96372; 96374; 96375; 93005 ×2; 99285; 36415; 94760; 93306; 80053; 80048; 84443 ×2; 83605; 83735; 84484; 85025; 85610; 85730; 81001; 87635; 71046; 70450; G0378 ×3; J2405; C9113 ×2; J1644

== ENCOUNTER 2020-09-01 17:26 | Inpatient (IN) | payer BC ==
[2020-09-01] MEDS ORDERED: SODIUM CHLORIDE 0.9% 1,000 ML IV STA (18:15)
[2020-09-01] MEDS ORDERED: METOCLOPRAMIDE 5 MG/ML 2 ML VIAL IVP STA (18:15)
--- NOTE | 2020-09-01 18:19 | ED ---
General Adult HPI - General Chief complaint: Nausea/Vomiting/Diarrhea Stated complaint: Nausea Time Seen by Provider: 09/01/20 17:45 Source: patient Mode of arrival: ambulatory Limitations: no limitations - History of Present Illness Initial comments: Dictation was produced using thereNow dictation software. please excuse any grammatical, word or spelling errors. This patient was cared for during a federal and state declared state of emergency secondary to Covid 19 Chief Complaint: 64-year-old male presents to the emergency department for persistent nausea. History of Present Illness: She is a 64-year-old female she was just discharged from the hospital 5 days ago. She was admitted to the hospital for nausea. She is found to have atrial flutter new onset on her EKG in the ER 7 days ago was admitted to the hospital. She is evaluated by cardiology while inpatient and did not agree with atrial flutter diagnosis. They felt that her EKG was from artifact. She is tolerating oral intake while in the emergency department and discharged home with instructions follow-up with primary care physician. She has history of essential tremor. Since that her symptoms are worse in the morning last for approximate 6 hours and goes away. Patient denies any symptoms currently. She denies any changes of her symptoms with position changes. States that she is still able to tolerate oral intake. She states she has not had a bowel movement in several days. The ROS documented in this emergency department record has been reviewed and confirmed by me. Those systems with pertinent positive or negative responses have been documented in the HPI. All other systems are other negative and/or noncontributory. PHYSICAL EXAM: General Impression: Alert and oriented x3, not in acute distress HEENT: Normocephalic atraumatic, extra-ocular movements intact, pupils equal and reactive to light bilaterally, mucous membranes moist. Cardiovascular: Heart regular rate and rhythm Chest: Able to complete full sentences, no retractions, no tachypnea Abdomen: abdomen soft, non-tender, non-distended, no organomegaly Musculoskeletal: Pulses present and equal in all extremities, no peripheral edema Motor: no focal deficits noted Neurological: CN II-XII grossly intact, no focal motor or sensory deficits noted Skin: Intact with no visualized rashes Psych: Normal affect and mood ED course: 64-year-old female presents to the emergency department for persistent nausea. Vital signs upon arrival are within acceptable limits. Patient's well-appearing at bedside. Laboratory evaluation obtained. CBC and [place]. Metabolic panel shows sodium of 129, rest metabolic panel is unremarkable. EKG shows atrial flutter with 4:1 AV conduction. Drug use performed patient was admitted last week for the same complaint she is noted to have EKG showing similar findings. She was advised by cardiology and her EKG findings were attribute it to artifact secondary to tremors. Tremors are very rhythmic. I'm concerned EKG does not represent art ifact given that I cannot identify P wave that occurs before each QRS. Patient is symptomatic with dizziness that last for several hours and hyponatremia which could be related to symptoms from tachydysrhythmia. Patient will be started on heparin. She'll be admitted to observation with repeat consultation to cardiology. Case discussed with Dr. Osorio. EKG interpretation: Ventricular rate 84, atrial flutter with 4:1 AV conduction, QRS 80, QTc 446. No MS prolongation, no QTC prolongation, no ST or T-wave changes noted. - Related Data Home Medications Medication Instructions Recorded Confirmed lisinopriL [Zestril] 10 mg PO DAILY 06/07/18 09/01/20 Primidone [Mysoline] 25 mg PO DAILY PRN 08/25/20 09/01/20 Primidone [Mysoline] 50 mg PO HS 08/25/20 09/01/20 prednisoLONE ACETATE 1% OPHTH 1 drops RIGHT EYE BID 08/25/20 09/01/20 [Pred Forte 1%] Previous Rx's Medication Instructions Recorded Omeprazole [PriLOSEC] 40 mg PO AC-BRKFST #30 capsule. 08/26/20 Ondansetron Odt [Zofran Odt] 4 mg PO Q8HR PRN #20 tab 08/27/20 polyethylene glycoL 3350 [Miralax] 17 gm PO DAILY PRN #15 packet 08/27/20 Allergies Allergy/AdvReac Type Severity Reaction Status Date / Time No Known Allergies Allergy Verified 09/01/20 18:07 Review of Systems ROS Statement: Those systems with pertinent positive or pertinent negative responses have been documented in the HPI. ROS Other: All systems not noted in ROS Statement are negative. Past Medical History Past Medical History: Hypertension Additional Past Medical History / Comment(s): essential tremors, hiatal hernia History of Any Multi-Drug Resistant Organisms: None Reported Past Surgical History: No Surgical Hx Reported Past Psychological History: No Psychological Hx Reported Smoking Status: Never smoker Past Alcohol Use History: None Reported Past Drug Use History: None Reported General Exam Limitations: no limitations Course Vital Signs 09/01/20 17:33 Temperature 98.0 F Pulse Rate 85 Respiratory 18 Rate Blood Pressure 153/82 O2 Sat by Pulse 96 Oximetry Medical Decision Making - Lab Data Result diagrams: 09/01/20 18:21 09/01/20 18:21 Lab Results 09/01/20 09/01/20 Range/Units 18:21 18:21 WBC 4.9 (3.8-10.6) k/uL RBC 3.52 L (3.80-5.40) m/uL Hgb 11.9 (11.4-16.0) gm/dL Hct 34.9 (34.0-46.0) % MCV 99.0 (80.0-100.0) fL MCH 33.9 (25.0-35.0) pg MCHC 34.2 (31.0-37.0) g/dL RDW 14.2 (11.5-15.5) % Plt Count 130 L (150-450) k/uL MPV 7.2 Neutrophils % 67 % Lymphocytes % 24 % Monocytes % 4 % Eosinophils % 3 % Basophils % 0 % Neutrophils # 3.3 (1.3-7.7) k/uL Lymphocytes # 1.2 (1.0-4.8) k/uL Monocytes # 0.2 (0-1.0) k/uL Eosinophils # 0.2 (0-0.7) k/uL Basophils # 0.0 (0-0.2) k/uL Sodium 129 L (137-145) mmol/L Potassium 4.4 (3.5-5.1) mmol/L Chloride 97 L (98-107) mmol/L Carbon Dioxide 25 (22-30) mmol/L Anion Gap 7 mmol/L BUN 12 (7-17) mg/dL Creatinine 0.56 (0.52-1.04) mg/dL Est GFR (CKD-EPI)AfAm >90 (>60 ml/min/1.73 sqM) Est GFR (CKD-EPI)NonAf >90 (>60 ml/min/1.73 sqM) Glucose 97 (74-99) mg/dL Calcium 9.0 (8.4-10.2) mg/dL Total Bilirubin 0.6 (0.2-1.3) mg/dL AST 23 (14-36) U/L ALT 12 (4-34) U/L Alkaline Phosphatase 49 (38-126) U/L Total Protein 6.9 (6.3-8.2) g/dL Albumin 4.3 (3.5-5.0) g/dL Lipase 71 (23-300) U/L Disposition Clinical Impression: Dizziness Disposition: ADMITTED IP TO THIS HOSP Condition: Fair Referrals: Melina Santa MD [Primary Care Provider] - 1-2 days Decision Time: 20:03
[2020-09-01 18:32] LABS: Basophils % (A) 0 %; Eosinophils # (A) 0.2 k/uL (0-0.7); Eosinophils % (A) 3 %; HCT 34.9 % (34.0-46.0); HGB 11.9 gm/dL (11.4-16.0); Lymphocytes # (A) 1.2 k/uL (1.0-4.8); Lymphocytes % (A) 24 %; MCH 33.9 pg (25.0-35.0); MCHC 34.2 g/dL (31.0-37.0); Mean Platelet Volume 7.2; Monocytes # (A) 0.2 k/uL (0-1.0); Monocytes % (A) 4 %; Neutrophils # (A) 3.3 k/uL (1.3-7.7); Neutrophils % (A) 67 %; Platelet Count 130 k/uL (150-450); RBC 3.52 m/uL (3.80-5.40); RDW 14.2 % (11.5-15.5); WBC 4.9 k/uL (3.8-10.6)
[2020-09-01 18:45] LABS: ALT 12 U/L (4-34); AST 23 U/L (14-36); African American GFR (CKD) >90 (>60 ml/min/1.73 sqM); Albumin 4.3 g/dL (3.5-5.0); Alkaline Phosphatase 49 U/L (38-126); Anion Gap 7 mmol/L; Blood Urea Nitrogen 12 mg/dL (7-17); Carbon Dioxide 25 mmol/L (22-30); Chloride 97 mmol/L (98-107); Glucose 97 mg/dL (74-99); Lipase 71 U/L (23-300); Non-African American GFR(CKD) >90 (>60 ml/min/1.73 sqM); Sodium 129 mmol/L (137-145); Total Bilirubin 0.6 mg/dL (0.2-1.3); Total Protein 6.9 g/dL (6.3-8.2)
--- NOTE | 2020-09-01 18:45 | XR ---
EXAMINATION TYPE: XR abdomen 1V DATE OF EXAM: 09/01/2020 COMPARISON: NONE HISTORY: Constipation TECHNIQUE: 2 views upright FINDINGS: No sign of intestinal obstruction or pneumoperitoneum. Fecal pattern is fairly normal. Ther e is no evidence of a mass. Lung bases are clear. There are no pathologic calcifications. IMPRESSION: Nonacute abdomen. No evidence of constipation.
[2020-09-01 18:49] LABS: Potassium 4.4 mmol/L (3.5-5.1)
[2020-09-01] MEDS ORDERED: HEPARIN SODIUM 1,000 UN/ML (10ML VL) IV PRN (19:49)
[2020-09-01] MEDS ORDERED: NALOXONE 0.4 MG/ML 1 ML VIAL IV PRN (19:51)
[2020-09-01] MEDS ORDERED: HEPARIN SOD,PORK IN 0.45% NACL 25,000 UNIT in 0.45% NACL 1 250ML.BAG IV SCH (20:00)
[2020-09-01] MEDS ORDERED: ONDANSETRON ODT 4 MG TAB PO PRN (20:14)
[2020-09-01] MEDS ORDERED: polyethylene glycoL 3350 17 GM POWD.PACK PO PRN (20:14)
[2020-09-01] MEDS ORDERED: PRIMIDONE 50 MG TAB PO PRN (20:14)
[2020-09-01] MEDS ORDERED: IOPAMIDOL CONTRAST (ORAL USE) VIAL PO PRN (20:15)
[2020-09-01] MEDS ORDERED: TEMAZEPAM 15 MG CAP PO PRN (20:16)
[2020-09-01] MEDS ORDERED: HYDROcodone/APAP 5-325MG 1 EACH TAB PO PRN (20:16)
[2020-09-01] MEDS ORDERED: ALPRAZolam 0.25 MG TAB PO PRN (20:16)
[2020-09-01] MEDS: SODIUM CHLORIDE 0.9% 1,000 ML IV SCH (20:46)
[2020-09-01] MEDS: HEPARIN SODIUM 1,000 UN/ML (10ML VL) IV ONE ×2 (20:47→21:02)
--- NOTE | 2020-09-01 22:12 | CT ---
EXAMINATION TYPE: CT ChestAbdPelvis wo con DATE OF EXAM: 09/01/2020 COMPARISON: None HISTORY: nausea. CT DLP: 523.1 mGycm Automated exposure control for dose reduction was used. Images obtained from the thoracic inlet to the floor the pelvis with oral contrast only. The lungs are clear of consolidation. There is no evidence of a pulmonary mass. There is no mediastin al adenopathy. There are no hilar masses. Thoracic aorta is intact. There is small hiatal hernia. Stomach is intact. Spleen liver gallbladder pancreas appear intact. The bile ducts are not dilated. There is no evidence of pancreatic mass. There is no adrenal mass. Kidneys have normal size. There is no hydronephrosis. The ureters are not d ilated. There is no retroperitoneal adenopathy. Bladder distends smoothly. There is no inguinal herni a. There is no free fluid in the pelvis. Bladder wall appears normal. There is anteverted uterus. Ofe sanjiv tilted to the right side. There is no mesenteric edema. There is no ascites or free air. There is no evidence of bowel obstruction. Appendix not definitely seen. There is no sign of thickened append ix. The thoracic and lumbar vertebra appear intact. There is no compression fracture. The bony pelvis is intact. Hip joints appear intact. There is no hip dysplasia. There is large degenerative cyst in the right acetabulum. The sternum is intact. There is no evidence of a rib fracture. Shoulder joints are intact. IMPRESSION: Negative CT scan of the chest abdomen pelvis. Small hiatal hernia is noted.
[2020-09-01] MEDS: PANTOPRAZOLE 40 MG/10 ML VIAL IVP SCH (22:33)
[2020-09-01] MEDS: PRIMIDONE 50 MG TAB PO SCH (22:33)
[2020-09-01] MEDS: prednisoLONE ACETATE 1% OPHTH DROPS 5 ML BTL RIGHT EYE SCH (22:33)
--- NOTE | 2020-09-01 23:16 | HP ---
HISTORY AND PHYSICAL DATE OF SERVICE: 09/01/2020 CHIEF COMPLAINTS: Nausea and weakness and tremors. HISTORY OF PRESENT ILLNESS: This 64-year-old woman with a past medical history of multiple medical problems, including history of hypertension, essential tremors, hiatal hernia, being followed by Dr. Santa in the outpatient setting, was recently admitted to [facility] with complaints of nausea. Esophagitis was suspected. Patient was treated with Protonix. The patient was discharged, but because of lack of improvement the patient came back to [facility] and was admitted for evaluation and treatment. A 2D echo with Doppler was done during that time which showed ejection fraction about 55% to 60%. There is no history of any fever, rigor or chills, no history of headache, loss of consciousness, seizures. PAST MEDICAL HISTORY: Hypertension, tremors, hiatal hernia. HOME MEDICATIONS: Prednisolone, polyethylene glycol, Zestril, Mysoline, Zofran, Prilosec. ALLERGIES: NONE. FAMILY HISTORY: No history of heart disease or strokes in the family. SOCIAL HISTORY: No history of smoking. No history of alcohol intake. REVIEW OF SYSTEMS: ENT: No diminished hearing. No diminished vision. CARDIOVASCULAR SYSTEM: As mentioned earlier. EKG showed some baseline abnormalities, unlikely to be atrial flutter. RESPIRATORY SYSTEM: No cough, hemoptysis. GI: As mentioned earlier. : No dysuria or retention. NERVOUS SYSTEM: No numbness, weakness. Otherwise as mentioned earlier. ALLERGY/IMMUNOLOGY: No asthma, hayfever. MUSCULOSKELETAL: As mentioned earlier. HEMATOLOGY/ONCOLOGY: No history of anemia. ENDOCRINE: No history of diabetes, hypothyroidism. CONSTITUTIONAL: As mentioned earlier. DERMATOLOGY: Negative. RHEUMATOLOGY: Negative. PSYCHIATRY: As mentioned earlier. PHYSICAL EXAMINATION: Patient alert and oriented x3. Pulse 85, blood pressure 153/82, respiration 18, temperature 98 degrees, pulse ox 96% on room air. HEENT: Conjunctivae normal. NECK: No jugular venous distention. CARDIOVASCULAR SYSTEM: S1, S2 muffled. RESPIRATORY SYSTEM: Breath sounds diminished at the bases. No rhonchi. No crackles. ABDOMEN: Soft, non-tender. No mass palpable. LEGS: No edema. No swelling. NERVOUS SYSTEM: Higher functions as mentioned earlier. Moves all 4 limbs. No focal motor or sensory deficit. Otherwise, diffuse tremors present. LYMPHATICS: No lymph node palpable in neck, axillae or groin. SKIN: No ulcer, rash, bleeding. JOINTS: No active deforming arthropathy. LABS: WBC 4.2, hemoglobin 11.9, platelets 130. ASSESSMENT: 1. Nausea; possible acute gastritis with failure of outpatient treatment. 2. Thrombocytopenia. 3. Hyponatremia. 4. Hypochloremia. 5. History of hypertension. 6. History of essential tremors. 7. Hiatal hernia. 8. FULL CODE. RECOMMENDATIONS AND DISCUSSION: In this 64-year-old woman who presented with multiple complex medical issues, we will monitor the patient closely. I would recommend continuing the current medications, continue with symptomatic treatment. The baseline labs appear to be normal. I would order additional labs as well as a CT scan of the chest, abdomen and pelvis to complete the workup. Otherwise, prognosis is guarded because of multiple complex medical issues. Further recommendations to follow. A copy of this dictation is being forwarded to Dr. Santa, who is the primary physician. Dr. Vic Whaley has seen the patient from the last admission and thought that there was no evidence of atrial flutter, and EKG abnormalities are thought to be related to the tremor. MMODL / IJN: [id number] /
[2020-09-02 08:23] LABS: Basophils % (A) 0 %; Eosinophils # (A) 0.1 k/uL (0-0.7); Eosinophils % (A) 3 %; HCT 31.3 % (34.0-46.0); HGB 11.3 gm/dL (11.4-16.0); Lymphocytes # (A) 0.9 k/uL (1.0-4.8); Lymphocytes % (A) 33 %; MCH 35.9 pg (25.0-35.0); MCHC 36.3 g/dL (31.0-37.0); MCV 99.1 fL (80.0-100.0); Mean Platelet Volume 7.6; Monocytes # (A) 0.2 k/uL (0-1.0); Monocytes % (A) 6 %; Neutrophils # (A) 1.6 k/uL (1.3-7.7); Neutrophils % (A) 57 %; Platelet Count 101 k/uL (150-450); RBC 3.15 m/uL (3.80-5.40); RDW 13.4 % (11.5-15.5); WBC 2.8 k/uL (3.8-10.6)
[2020-09-02] MEDS: PANTOPRAZOLE 40 MG/10 ML VIAL IVP SCH (08:28)
[2020-09-02] MEDS: lisinopriL 10 MG TAB PO SCH (08:28)
[2020-09-02] MEDS: prednisoLONE ACETATE 1% OPHTH DROPS 5 ML BTL RIGHT EYE SCH ×2 (08:29→22:04)
[2020-09-02 08:42] LABS: African American GFR (CKD) >90 (>60 ml/min/1.73 sqM); Anion Gap 4 mmol/L; Blood Urea Nitrogen 9 mg/dL (7-17); Calcium 8.9 mg/dL (8.4-10.2); Carbon Dioxide 29 mmol/L (22-30); Chloride 102 mmol/L (98-107); Glucose 94 mg/dL (74-99); Non-African American GFR(CKD) >90 (>60 ml/min/1.73 sqM); Potassium 4.3 mmol/L (3.5-5.1); Sodium 135 mmol/L (137-145)
--- NOTE | 2020-09-02 15:23 | P.CRDCN ---
History of Present Illness History of present illness: HISTORY OF PRESENTING ILLNESS This is a pleasant 64-year-old female with history of hiatal hernia, essential tremors, hypertension who presents secondary to continued nausea. Patient was evaluated at [facility] last week, 7 days ago. She has been having new onset of nausea or last week and a half. She was treated with Zofran however was discharged home and has still been having nausea and therefore presented back for continued nausea. She denies any abdominal pain, chest pain, pressure, shortness breath. Last admission cardiology was consult it for abnormal EKG with suspicion of atrial flutter however this was felt related to her essential tremor with underlying sinus rhythm. Again EKG was performed during this admission which showed artifact related to her essential tremor with underlying P waves in sinus rhythm. Patient had echocardiogram performed last week which was unrevealing with normal ejection fraction. REVIEW OF SYSTEMS At the time of my exam: CONSTITUTIONAL: Denies fever or chills. CARDIOVASCULAR: Denies chest pain, shortness of breath, orthopnea, PND or pal pitations. RESPIRATORY: Denies cough. GASTROINTESTINAL: Denies abdominal pain, diarrhea, constipation, +nausea, no vomiting. MUSCULOSKELETAL: Denies myalgias. NEUROLOGIC: Denies numbness, tingling or weakness. ENDOCRINE: Denies fatigue, weight change, polydipsia or polyurina. GENITOURINARY: Denies burning, hematuria or urgency with micturation. HEMATOLOGIC: Denies history of anemia or bleeding. PHYSICAL EXAMINATION Vital signs reviewed. CONSTITUTIONAL: No apparent distress. + essential tremor HEENT: Head is normocephalic. Pupils are equal, round. Sclerae anicteric. Mucous membranes of the mouth are moist. No JVD. No carotid bruit. CHEST EXAMINATION: Lungs are clear to auscultation. No chest wall tenderness is noted on palpation or with deep breathing. HEART EXAMINATION: Regular rate and rhythm. S1, S2 heard. No murmurs, gallops or rub. ABDOMEN: Soft, nontender. Positive bowel sounds. EXTREMITIES: 2+ peripheral pulses, no lower extremity edema and no calf tenderness. NEUROLOGIC EXAMINATION: Patient is awake, alert and oriented x3. ASSESSMENT 1. Abnormal EKG related to artifact from essential tremor. No evidence of atrial flutter with underlying sinus rhythm 2. Nausea 3. Hypertension 4. Hiatal hernia PLAN Patient with similar admission 1 week ago with EKG showing artifact related to her essential tremor. Echocardiogram at that time revealed normal left ventricular function. Do not suspect a cardiac source for her nausea. No further workup from a cardiology standpoint. Past Medical History Past Medical History: Hypertension Additional Past Medical History / Comment(s): essential tremors, hiatal hernia History of Any Multi-Drug Resistant Organisms: None Reported Past Surgical History: No Surgical Hx Reported Additional Past Surgical History / Comment(s): surgery on both eyes to "drain the pressure" Past Psychological History: No Psychological Hx Reported Smoking Status: Never smoker Past Alcohol Use History: None Reported Past Drug Use History: None Reported Medications and Allergies Home Medications Medication Instructions Recorded Confirmed Type lisinopriL [Zestril] 10 mg PO DAILY 06/07/18 09/01/20 History Primidone [Mysoline] 25 mg PO DAILY PRN 08/25/20 09/01/20 History Primidone [Mysoline] 50 mg PO HS 08/25/20 09/01/20 History prednisoLONE ACETATE 1% OPHTH 1 drops RIGHT EYE BID 08/25/20 09/01/20 History [Pred Forte 1%] Omeprazole [PriLOSEC] 40 mg PO AC-BRKFST #30 capsule. 08/26/20 09/01/20 Rx Ondansetron Odt [Zofran Odt] 4 mg PO Q8HR PRN #20 tab 08/27/20 09/01/20 Rx polyethylene glycoL 3350 [Miralax] 17 gm PO DAILY PRN #15 packet 08/27/20 09/01/20 Rx Allergies Allergy/AdvReac Type Severity Reaction Status Date / Time No Known Allergies Allergy Verified 09/01/20 18:07 Physical Exam Vitals: Vital Signs Temp Pulse Pulse Resp BP BP Pulse Ox 09/02/20 14:00 16 09/02/20 12:40 97.8 F 101 H 16 142/91 99 09/02/20 08:25 97.7 F 84 16 143/78 100 09/02/20 04:00 98.1 F 81 17 146/69 98 09/01/20 23:44 97.8 F 78 16 129/69 97 09/01/20 22:00 98.0 F 84 16 148/88 98 09/01/20 21:22 97.8 F 78 17 129/69 97 09/01/20 17:33 98.0 F 85 18 153/82 96 Intake and Output 09/02/20 09/02/20 09/02/20 06:59 14:59 22:59 Intake Total 240 Balance 240 Intake: Oral 240 Other: # Voids 2 3 Results 09/02/20 07:44 09/02/20 07:44 Cardiac Enzymes 09/01/20 Range/Units 18:21 AST 23 (14-36) U/L CBC 09/01/20 09/02/20 Range/Units 18:21 07:44 WBC 4.9 2.8 L (3.8-10.6) k/uL RBC 3.52 L 3.15 L (3.80-5.40) m/uL Hgb 11.9 11.3 L (11.4-16.0) gm/dL Hct 34.9 31.3 L (34.0-46.0) % Plt Count 130 L 101 L (150-450) k/uL Comprehensive Metabolic Panel 09/01/20 09/02/20 Range/Units 18:21 07:44 Sodium 129 L 135 L (137-145) mmol/L Potassium 4.4 4.3 (3.5-5.1) mmol/L Chloride 97 L 102 (98-107) mmol/L Carbon Dioxide 25 29 (22-30) mmol/L BUN 12 9 (7-17) mg/dL Creatinine 0.56 0.72 (0.52-1.04) mg/dL Glucose 97 94 (74-99) mg/dL Calcium 9.0 8.9 (8.4-10.2) mg/dL AST 23 (14-36) U/L ALT 12 (4-34) U/L Alkaline Phosphatase 49 (38-126) U/L Total Protein 6.9 (6.3-8.2) g/dL Albumin 4.3 (3.5-5.0) g/dL Current Medications Generic Name Dose Route Start Last Admin Trade Name Freq PRN Reason Stop Dose Admin Hydrocodone Bitart/Acetaminophen 1 each 09/01/20 20:16 Hydrocodone/Apap 5-325mg 1 Each Tab PO Q6HR PRN Pain Alprazolam 0.25 mg 09/01/20 20:16 Alprazolam 0.25 Mg Tab PO TID PRN Anxiety Sodium Chloride 1,000 mls @ 20 mls/hr 09/01/20 20:00 09/01/20 20:46 Saline 0.9% IV 20 mls/hr .Q24H DEIDRE Administration Iopamidol 30 ml 09/01/20 20:15 Iopamidol Contrast (Oral Use) Vial PO 09/02/20 20:[address] Scan Lisinopril 10 mg 09/02/20 09:00 09/02/20 08:28 Lisinopril 10 Mg Tab PO 10 mg DAILY DEIDRE Administration Naloxone HCl 0.2 mg 09/01/20 19:51 Naloxone 0.4 Mg/Ml 1 Ml Vial IV Q2M PRN Opioid Reversal Ondansetron HCl 4 mg 09/01/20 20:14 Ondansetron Odt 4 Mg Tab PO Q8HR PRN Nausea And Vomiting Pantoprazole Sodium 40 mg 09/02/20 17:30 Pantoprazole 40 Mg Tablet PO AC-BID DEIDRE Polyethylene Glycol 17 gm 09/01/20 20:14 Polyethylene Glycol 3350 17 Gm Powd.Pack PO DAILY PRN Constipation Prednisolone Acetate 1 drops 09/01/20 21:00 09/02/20 08:29 Prednisolone Acetate 1% Ophth Drops 5 Ml Btl RIGHT EYE 1 drops BID DEIDRE Administration Primidone 50 mg 09/01/20 21:00 09/01/20 22:33 Primidone 50 Mg Tab PO 50 mg HS DEIDRE Administration Primidone 25 mg 09/01/20 20:14 Primidone 50 Mg Tab PO DAILY PRN TREMORS Temazepam 15 mg 09/01/20 20:16 Temazepam 15 Mg Cap PO HS PRN Insomnia Intake and Output 09/02/20 09/02/20 09/02/20 06:59 14:59 22:59 Intake Total 240 Balance 240 Intake: Oral 240 Other: # Voids 2 3 09/02/20 07:44 09/02/20 07:44
[2020-09-02] MEDS: PANTOPRAZOLE 40 MG TABLET PO SCH (17:31)
[2020-09-02] MEDS ORDERED: SENNOSIDES 8.6 MG TAB PO PRN (19:29)
--- NOTE | 2020-09-02 20:34 | PN ---
PROGRESS NOTE DATE OF SERVICE: 09/02/2020 This 64-year-old woman who was admitted with nausea, possible acute gastritis with failure of outpatient treatment is being closely monitored at this time. The patient had thrombocytopenia also. Cardiology has seen the patient. The chest, abdomen CT scan and pelvis CAT scan was unremarkable. The EKG showed some artifact. The patient has normal sinus rhythm. No chest pain. No palpitations. No fever. Patient has history of essential tremors. PHYSICAL EXAMINATION: Alert and oriented x3. Pulse is 101, blood pressure is 140/90, respirations 16, temperature 97.8, pulse ox 99% on room air. HEENT: Conjunctivae normal. Oral mucosa moist. NECK: No jugular venous distention. No lymph node enlargement. CARDIOVASCULAR: S1, S2, muffled. No S3, no S4, RESPIRATORY: Diminished breath sounds at the bases. No rhonchi, no crackles. ABDOMEN: Soft, nontender. LEGS: No edema, no swelling. NERVOUS SYSTEM: No focal deficits. LAB STUDIES: WBC 2.8, hemoglobin 7.4, platelets 101. Sodium 135. ASSESSMENT: 1. Nausea, possible acute gastritis and failure of outpatient treatment. 2. Mild pancytopenia. 3. Thrombocytopenia. 4. Hyponatremia. 5. Hypochloremia. 6. History of hypertension. 7. History of essential tremors. 8. Hiatal hernia. 9. Possible artifacts on the EKG. 10.FULL CODE. RECOMMENDATIONS AND DISCUSSION: Recommend to continue current management and symptomatic treatment. Otherwise, continue with current medications. Sodium is improved significantly. We will repeat labs for tomorrow. Increase ambulation. Once the patient is stabilized, the patient could be discharged home. Prognosis guarded. MMODL / IJN: [id number] /
[2020-09-02] MEDS: PRIMIDONE 50 MG TAB PO SCH (22:04)
[2020-09-02] MEDS: DOCUSATE 100 MG CAP PO SCH (22:04)
[2020-09-02] MEDS: SODIUM CHLORIDE 0.9% 1,000 ML IV SCH (22:05)
[2020-09-03] MEDS: PANTOPRAZOLE 40 MG TABLET PO SCH (06:37)
[2020-09-03 07:55] LABS: Basophils % (A) 0 %; Eosinophils # (A) 0.1 k/uL (0-0.7); Eosinophils % (A) 2 %; HCT 39.3 % (34.0-46.0); HGB 12.8 gm/dL (11.4-16.0); Lymphocytes # (A) 1.4 k/uL (1.0-4.8); Lymphocytes % (A) 34 %; MCH 33.2 pg (25.0-35.0); MCHC 32.6 g/dL (31.0-37.0); MCV 101.8 fL (80.0-100.0); Macrocytosis Slight; Mean Platelet Volume 7.9; Monocytes # (A) 0.2 k/uL (0-1.0); Monocytes % (A) 4 %; Neutrophils # (A) 2.3 k/uL (1.3-7.7); Neutrophils % (A) 57 %; Platelet Count 125 k/uL (150-450); RBC 3.86 m/uL (3.80-5.40); RDW 14.2 % (11.5-15.5)
[2020-09-03 08:36] LABS: African American GFR (CKD) >90 (>60 ml/min/1.73 sqM); Anion Gap 9 mmol/L; Blood Urea Nitrogen 18 mg/dL (7-17); Calcium 9.6 mg/dL (8.4-10.2); Carbon Dioxide 26 mmol/L (22-30); Chloride 100 mmol/L (98-107); Glucose 124 mg/dL (74-99); Non-African American GFR(CKD) 82 (>60 ml/min/1.73 sqM); Potassium 3.9 mmol/L (3.5-5.1); Sodium 135 mmol/L (137-145)
[2020-09-03] MEDS: DOCUSATE 100 MG CAP PO SCH (09:00)
[2020-09-03] MEDS: lisinopriL 10 MG TAB PO SCH (09:00)
[2020-09-03] MEDS: prednisoLONE ACETATE 1% OPHTH DROPS 5 ML BTL RIGHT EYE SCH (09:00)
[2020-09-03 09:04] VITALS: BP 148/76; PULSE 104; RESP 18; TEMP 98.9
--- NOTE | 2020-09-03 20:57 | DS ---
DISCHARGE SUMMARY DATE OF SERVICE: 09/03/2020 FINAL DIAGNOSIS: 1. Nausea, possible acute gastritis, failure of outpatient treatment, improved. 2. Mild pancytopenia. 3. Thrombocytopenia. 4. Hyponatremia. 5. Hypochloremia. 6. History of hypertension. 7. History of essential tremors. 8. Hiatal hernia. 9. Possible artifacts on the EKG. 10.FULL CODE. DISCHARGE DISPOSITION: The patient will be discharged in stable condition with guarded prognosis. HISTORY OF PRESENT ILLNESS: This is a 64-year-old woman with a past medical history of multiple medical problems was admitted with nausea with possible acute gastroparesis, symptomatic. The patient improved significantly. The patient was discharged home in stable condition with guarded prognosis. PHYSICAL EXAMINATION: On exam vitals stable. Cardiovascular S1 and S2. Abdomen soft. Nervous system with diffuse tremors. Cardiology saw the patient. EKG was felt to be secondary to tremors. DISCHARGE INSTRUCTIONS: Diet is soft and bland. Activity is limited until followup. Follow up with Dr. Santa in 2-3 days. Follow up with Gastroenterology in case symptoms are not improving for possible endoscopes. MEDICATIONS: 1. Mysoline p.r.n. 2. Prednisone 1 drop right eye. 3. Zestril 10 mg daily. 4. Colace 100 mg b.i.d. 5. MiraLAX 17 grams p.o. daily. 6. Protonix 40 mg daily. 7. Zofran p.r.n. MMJUSTINL / LEIGHTONN: [id number] /
== END 2020-09-03 14:03 | disposition home or self-care (01) | DRG 392 ==
LOC: EC 17:26 → 3SCARD 19:51
PROVIDERS: ADMIT Hospitalist; ATTEND Hospitalist
DX: K29.00 Acute gastritis without bleeding (principal); E87.1 Hypo-osmolality and hyponatremia; D61.818 Other pancytopenia; G25.0 Essential tremor; K44.9 Diaphragmatic hernia without obstruction or gangrene; E87.8 Other disorders of electrolyte and fluid balance, not elsewhere classified; I10 Essential (primary) hypertension; Z20.822 Contact with and (suspected) exposure to COVID-19
CPT/HCPCS: 36415; 71250; 74018; 74176; 80048; 80053; 83690; 85025; 87635; 93005; 96374; 96375; 99285

== ENCOUNTER 2020-11-17 06:14 | Day surgery (SDC) | payer BC ==
[2020-11-15 08:29] VITALS: BMI 22.1
[~2020-11-17 06:14] MED LIST: LACTATED RINGERS 1,000 ML IV SCH; LIDOCAINE 1% (10MG/ML) FOR IV START INTRADERMA PRN
[2020-11-17] MEDS ORDERED: LIDOCAINE 1% (10MG/ML) FOR IV START INTRADERMA ONE (06:45)
[2020-11-17 07:00] VITALS: TEMP 97.7
[2020-11-17] MEDS ORDERED: PROPOFOL 10 MG/ML 20 ML VIAL IV ONE (07:08)
[2020-11-17] MEDS ORDERED: LIDOCAINE 1% INJ 10MG/ML (20 ML MDV) ONE (07:08)
[2020-11-17 07:42] VITALS: BP 118/76; PULSE 59; RESP 18
[2020-11-17 07:46] LABS: Basophils % (A) 0 %; Eosinophils # (A) 0.1 k/uL (0-0.7); Eosinophils % (A) 3 %; HCT 35.1 % (34.0-46.0); HGB 12.3 gm/dL (11.4-16.0); Lymphocytes # (A) 1.1 k/uL (1.0-4.8); Lymphocytes % (A) 36 %; MCH 35.5 pg (25.0-35.0); MCHC 34.9 g/dL (31.0-37.0); MCV 101.8 fL (80.0-100.0); Macrocytosis Slight; Mean Platelet Volume 7.1; Monocytes # (A) 0.1 k/uL (0-1.0); Monocytes % (A) 4 %; Neutrophils # (A) 1.7 k/uL (1.3-7.7); Neutrophils % (A) 54 %; Platelet Count 122 k/uL (150-450); RBC 3.45 m/uL (3.80-5.40); RDW 14.3 % (11.5-15.5); WBC 3.1 k/uL (3.8-10.6)
--- NOTE | 2020-11-17 13:41 | PCN ---
PROCEDURE NOTE DATE OF PROCEDURE: 11/17/2020. PROCEDURE: Bone marrow aspirate and biopsy. SITE: Right iliac crest. PREOP DIAGNOSES: Anemia and thrombocytopenia. POSTOP DIAGNOSIS: Anemia and thrombocytopenia. ANESTHESIA: Local with IV systemic sedation. DESCRIPTION OF PROCEDURE: Utilizing sterile technique, the skin overlying the right iliac crest was prepared with Betadine and alcohol. After adequate sterile draping, systemic sedation and local anesthesia with 1% lidocaine, a size 11 4 inch Jamshidi needle was utilized to access the periosteum with ease. A total of 14 mL of aspirate as well as 2.5 cm bone core biopsies were obtained. The patient tolerated the procedure very well. There was no immediate procedure related complications. TOTAL BLOOD LOSS: Less than 1 mL. RESULTS: Pending. MMODL / IJN: [id number] /
== END 2020-11-17 08:13 | disposition home or self-care (01) ==
LOC: OR 06:14
PROVIDERS: ATTEND Internal Medicine Hematology & Oncology
DX: D69.6 Thrombocytopenia, unspecified (principal); D72.819 Decreased white blood cell count, unspecified; I10 Essential (primary) hypertension; D64.9 Anemia, unspecified; K44.9 Diaphragmatic hernia without obstruction or gangrene; Z80.42 Family history of malignant neoplasm of prostate; Z80.7 Family history of other malignant neoplasms of lymphoid, hematopoietic and related tissues; Z83.1 Family history of other infectious and parasitic diseases; Z84.89 Family history of other specified conditions; Z79.899 Other long term (current) drug therapy
CPT/HCPCS: 85025; 85045; 38222; J2001; J2704

== ENCOUNTER 2021-05-01 18:11 | Inpatient (IN) | payer BC ==
--- NOTE | 2021-05-01 21:42 | XR ---
EXAMINATION TYPE: XR chest 2V DATE OF EXAM: 05/01/2021 COMPARISON: 08/25/2020 HISTORY: 65 years Female. STUDY INDICATION GIVEN: Pain . TECHNIQUE: Frontal and lateral chest radiographs. IMPRESSION: Mild hyperinflation of the lung and perihilar and upper lobe lucencies greater on the rig ht similar to prior study may be reflective of COPD/emphysema. Clinical correlation recommended for t his finding. No focal airspace disease, pneumothorax or pleural effusion. The cardiomediastinal silhouette is normal in appearance. No acute osseous abnormalities seen.
--- NOTE | 2021-05-01 21:43 | XR ---
EXAMINATION TYPE: XR Hip Complete RT DATE OF EXAM: 05/01/2021 COMPARISON: NONE HISTORY: 65 years Female. STUDY INDICATION GIVEN: Pain . TECHNIQUE: AP and lateral radiographs of the right hip joint IMPRESSION: There is a lucency and cortical step-off in the femoral head neck junction turning for nondisplaced f racture of the right proximal femur. There is mild generalized osteopenia. There is mild osteoarthrosis of the right hip joint.
[2021-05-01] MEDS ORDERED: ACETAMINOPHEN TAB 500 MG TAB PO STA (22:10)
--- NOTE | 2021-05-01 22:15 | ED ---
Fall HPI - General Chief Complaint: Fall Stated Complaint: Fall Time Seen by Provider: 05/01/21 22:03 Source: patient, RN notes reviewed Mode of arrival: ambulatory - History of Present Illness Initial Comments: This is a pleasant 65-year-old female who tripped over her cat at home and landed on her right hip. Patient complaining of pain to the right hip. Patient states she also discharge her torso and has some soreness to the anterior and right chest wall. No difficulty breathing. Pain is exacerbated by movement. Alleviated by rest. No radiation of pain. Patient did not hit her head or neck. Has no spinal tenderness. No spinal pain. No blood thinners. Recalls the entire event. History of glaucoma and essential tremor. No headache, no fever or chills, no changes in vision or hearing, no sore throat or difficulty with speech, no neck pain, no chest pain or shortness of breath, no abdominal pain, no nausea or vomiting, no changes in urination or bowel movements, no numbness or tingling, no extremity pain, no skin rashes or les ions. - Related Data Home Medications Medication Instructions Recorded Confirmed lisinopriL [Zestril] 10 mg PO QAM 06/07/18 11/17/20 Primidone [Mysoline] 25 mg PO QAM PRN 08/25/20 11/17/20 Primidone [Mysoline] 50 mg PO HS 08/25/20 11/17/20 Omeprazole [PriLOSEC] 20 mg PO QAM 11/15/20 11/17/20 Allergies Allergy/AdvReac Type Severity Reaction Status Date / Time No Known Allergies Allergy Verified 05/01/21 22:36 Review of Systems ROS Statement: Those systems with pertinent positive or pertinent negative responses have been documented in the HPI. ROS Other: All systems not noted in ROS Statement are negative. Past Medical History Past Medical History: Hypertension Additional Past Medical History / Comment(s): anemia, essential tremors, hiatal hernia History of Any Multi-Drug Resistant Organisms: None Reported Past Surgical History: No Surgical Hx Reported Additional Past Surgical History / Comment(s): surgery on both eyes to "drain the pressure" Past Anesthesia/Blood Transfusion Reactions: No Reported Reaction Past Psychological History: No Psychological Hx Reported Smoking Status: Never smoker Past Alcohol Use History: None Reported Past Drug Use History: None Reported - Past Family History Mother Family Medical History: No Reported History Brother(s) Family Medical History: Cancer Additional Family Medical History / Comment(s): nonHodgkin's Lymphoma General Exam - General Exam Comments Initial Comments: Patient in mild distress secondary to right hip and chest wall injury. Cranial nerves II through XII grossly intact. Limitations: no limitations General appearance: alert, in distress Head exam: Present: atraumatic, normocephalic, normal inspection Eye exam: Present: normal appearance, PERRL, EOMI. Absent: scleral icterus, conjunctival injection, periorbital swelling ENT exam: Present: normal exam, mucous membranes moist Neck exam: Present: normal inspection. Absent: tenderness, meningismus, lymphadenopathy Respiratory exam: Present: normal lung sounds bilaterally. Absent: respiratory distress, wheezes, rales, rhonchi, stridor Cardiovascular Exam: Present: regular rate, normal rhythm, normal heart sounds. Absent: systolic murmur, diastolic murmur, rubs, gallop, clicks GI/Abdominal exam: Present: soft, normal bowel sounds. Absent: distended, tenderness, guarding, rebound, rigid Extremities exam: Present: normal inspection, tenderness, normal capillary refill, other (Tenderness to lateral aspect of the right hip and anterior aspect of the right pelvis area. However pelvis stable.). Absent: pedal edema, joint swelling, calf tenderness Back exam: Present: normal inspection, full ROM, other (Chest wall tenderness to the right lateral ribs. No crepitus. Mild anterior chest wall tenderness. No crepitus. No break in skin integrity. Remainder of the musculoskeletal exam ination is benign). Absent: tenderness, CVA tenderness (R), CVA tenderness (L), muscle spasm, paraspinal tenderness, vertebral tenderness, rash noted Neurological exam: Present: alert, oriented X3, CN II-XII intact. Absent: motor sensory deficit Expanded Patient oriented to: Present: person, place, time Speech: Present: fluid speech Eye Response: (4) open spontaneously Motor Response: (6) obeys commands Verbal Response: (5) oriented Psychiatric exam: Present: normal affect, normal mood Skin exam: Present: warm, dry, intact, normal color. Absent: rash Expanded 1 - Mild tenderness to palpation 2 - Mild tenderness to palpation. No external rotation or shortening. No crepitus. Pelvis is stable Course Vital Signs 05/01/21 21:14 Temperature 97 F L Pulse Rate 106 H Respiratory 18 Rate Blood Pressure 128/67 O2 Sat by Pulse 94 L Oximetry Medical Decision Making - Medical Decision Making Patient presents after mechanical fall. Sustained a right femoral neck fracture. No significant displacement. Discussed case in detail with the on- call orthopedic physician, Dr. Paul who wants the patient admitted and nothi ng by mouth after midnight. Consult medicine. The case was discussed in detail with ED attending physician. Presentation, findings, treatment plan discussed in detail. Note that the patient does not appear to have any other significant injuries. Preoperative laboratory work, EKG, and chest x-ray. Findings discussed with the patient in detail. All questions answered. - Radiology Data Radiology results: report reviewed, image reviewed Disposition Clinical Impression: Closed right hip fracture, Chest wall contusion, Fall Disposition: ADMITTED IP TO THIS [facility] Condition: Stable Referrals: Melina Santa MD [Primary Care Provider] - 1-2 days Time of Disposition: 22:36
[2021-05-01] MEDS ORDERED: MORPHINE SULFATE 4 MG/ML SYRINGE IV PRN (22:37)
[2021-05-01] MEDS ORDERED: ONDANSETRON 4 MG/2 ML VIAL IVP PRN (22:37)
[2021-05-01] MEDS ORDERED: NALOXONE 0.4 MG/ML 1 ML VIAL IV PRN (22:37)
[2021-05-01 23:07] LABS: Basophils % (A) 0 %; Eosinophils # (A) 0.4 k/uL (0-0.7); Eosinophils % (A) 5 %; HCT 32.1 % (34.0-46.0); HGB 11.4 gm/dL (11.4-16.0); Lymphocytes # (A) 0.4 k/uL (1.0-4.8); Lymphocytes % (A) 5 %; MCH 35.8 pg (25.0-35.0); MCHC 35.4 g/dL (31.0-37.0); MCV 101.3 fL (80.0-100.0); Mean Platelet Volume 8.4; Monocytes # (A) 0.3 k/uL (0-1.0); Monocytes % (A) 4 %; Neutrophils # (A) 6.6 k/uL (1.3-7.7); Neutrophils % (A) 86 %; Platelet Count 110 k/uL (150-450); RBC 3.17 m/uL (3.80-5.40); RDW 12.9 % (11.5-15.5); WBC 7.7 k/uL (3.8-10.6)
[2021-05-01 23:16] LABS: ALT 19 U/L (4-34); AST 24 U/L (14-36); African American GFR (CKD) >90 (>60 ml/min/1.73 sqM); Albumin 4.2 g/dL (3.5-5.0); Alkaline Phosphatase 59 U/L (38-126); Anion Gap 8 mmol/L; Blood Urea Nitrogen 17 mg/dL (7-17); Carbon Dioxide 21 mmol/L (22-30); Chloride 99 mmol/L (98-107); Glucose 141 mg/dL (74-99); Non-African American GFR(CKD) >90 (>60 ml/min/1.73 sqM); Sodium 128 mmol/L (137-145); Total Protein 6.7 g/dL (6.3-8.2)
[2021-05-01 23:18] LABS: Partial Thromboplastin Time 22.1 sec (22.0-30.0); Prothrombin Time 11.1 sec (9.0-12.0)
[2021-05-02 02:11] LABS: Appearance,Urine Clear (Clear); Bacteria,Urine Rare /hpf; Bilirubin,Urine Negative (Negative); Blood,Urine Negative (Negative); Color,Urine Yellow; Glucose,Urine (UA) Negative (Negative); Ketones,Urine 2+ (Negative); Leukocyte Esterase,Urine Moderate (Negative); Mucus,Urine Rare /hpf; Nitrite,Urine Negative (Negative); PH, Urine 6.5 (5.0-8.0); Protein,Urine Trace (Negative); RBC,Urine 4 /hpf (0-5); Specific Gravity,Urine 1.026 (1.001-1.035); Urobilinogen,Urine <2.0 mg/dL (<2.0); WBC,Urine 16 /hpf (0-5)
[2021-05-02] MEDS: SODIUM CHLORIDE 0.9% 1,000 ML IV SCH ×3 (02:21→20:59)
[2021-05-02] MEDS ORDERED: ACETAMINOPHEN TAB 325 MG TAB PO PRN (07:23)
[2021-05-02 09:58] LABS: Basophils % (A) 0 %; Eosinophils # (A) 0.2 k/uL (0-0.7); Eosinophils % (A) 5 %; HCT 28.4 % (34.0-46.0); Lymphocytes # (A) 0.6 k/uL (1.0-4.8); Lymphocytes % (A) 15 %; MCH 36.2 pg (25.0-35.0); MCV 103.4 fL (80.0-100.0); Macrocytosis Slight; Mean Platelet Volume 7.8; Monocytes # (A) 0.2 k/uL (0-1.0); Monocytes % (A) 4 %; Neutrophils % (A) 75 %; RBC 2.75 m/uL (3.80-5.40); RDW 13.3 % (11.5-15.5); WBC 3.9 k/uL (3.8-10.6)
--- NOTE | 2021-05-02 10:01 | P.CONS ---
History of Present Illness - History of Present Illness This is a pleasant 65 years old female with past medical history of Hypertens ion, anemia, essential tremors, hiatal hernia. mild case of MDS Dx Patient states that yesterday she fell after she tripped with her trey cat , she denies dizziness before or after a fall, she denies loss of consciousness. After the fall she has some pain in her right hip area which is now better controlled with Tylenol about 2/10 in severity. Also she had mild chest te nderness at 1/10 after the fall which is improved with Tylenol and now is down as 0/10. Also now she denies any dyspnea, no abdominal pain. No nausea vomiting or diarrhea. No fever. No coughing. No dysuria or increased frequency, no suprapubic tenderness She denies smoking, alcohol or illicit drugs. She Vitas looks hemodynamically stable., Afebrile. WBC is 7.7K. Hemoglobin 11.4. Platelets is 110. INR is 1.0, sodium 128, creatinine normal at 0.5 Liver enzymes not elevated. Chest x-ray: Mild hyperinflation of the lungs and perihilar and upper lobe lucencies greater on the right similar to prior study may be reflective of COPD/emphysema EKG showing atrial flutter with a rate of QRS at 91/m, no significant ST-T changes but slow R-wave in the distal 3. QTC is 474 In the emergency room patient started on morphine and normal saline x there is a lucency and cortical step of the femoral head neck junction tendon for nondisplaced fracture of the right proximal femur Review of Systems CONSTITUTIONAL: No fever, no malaise, no fatigue. HEENT: No recent visual problems or hearing problems. Denied any sore throat. CARDIOVASCULAR: No orthopnea, PND, no palpitations, no syncope. PULMONARY: No shortness of breath, no cough, no hemoptysis. GASTROINTESTINAL: No diarrhea, no nausea, no vomiting, no abdominal pain. Normoactive bowel sounds. NEUROLOGICAL: No headaches, no weakness, no numbness. HEMATOLOGICAL: Denies any bleeding or petechiae. GENITOURINARY: Denies any burning micturition, frequency, or urgency. -MUSCULOSKELETAL/RHEUMATOLOGICAL: As above ENDOCRINE: Denies any polyuria or polydipsia. Past Medical History Past Medical History: Hypertension Additional Past Medical History / Comment(s): anemia, essential tremors, hiatal hernia. 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 Bone Marrow BX october 2020 Past Anesthesia/Blood Transfusion Reactions: No Reported Reaction Past Psychological History: No Psychological Hx Reported Smoking Status: Never smoker Past Alcohol Use History: None Reported Past Drug Use History: None Reported - Past Family History Mother Family Medical History: No Reported History Brother(s) Family Medical History: Cancer Additional Family Medical History / Comment(s): nonHodgkin's Lymphoma Medications and Allergies Home Medications Medication Instructions Recorded Confirmed Type lisinopriL [Zestril] 10 mg PO DAILY 06/07/18 05/01/21 History Primidone [Mysoline] 25 mg PO DAILY 08/25/20 05/01/21 History Primidone [Mysoline] 50 mg PO HS 08/25/20 05/01/21 History Omeprazole [PriLOSEC] 20 mg PO DAILY 11/15/20 05/01/21 History Allergies Allergy/AdvReac Type Severity Reaction Status Date / Time No Known Allergies Allergy Verified 05/01/21 22:36 Physical Exam Vitals: Vital Signs Temp Pulse Pulse Resp BP BP Pulse Ox 05/02/21 05:12 98.4 F 99 16 120/76 96 05/02/21 03:03 98 F 100 16 120/68 98 05/02/21 01:55 98.6 F 93 16 125/84 05/01/21 22:50 98.6 F 93 19 141/87 95 05/01/21 21:14 97 F L 106 H 18 128/67 94 L Intake and Output 05/01/21 05/02/21 05/02/21 22:59 06:59 14:59 Intake Total 225 Balance 225 Intake: Intake, IV Titration 225 Amount Sodium Chloride 0.9% 1, 225 000 ml @ 75 mls/hr IV . [id number] [facility] Rx#:[id number] Other: Weight 62.142 kg 62.142 kg GENERAL: The patient is alert and oriented x3, not in any acute distress. Well developed, well nourished. HEENT: Pupils are round and equally reacting to light. EOMI. No scleral icterus. No conjunctival pallor. Normocephalic, atraumatic. No pharyngeal erythema. No thyromegaly. CARDIOVASCULAR: S1 and S2 present. No murmurs, rubs, or gallops. PULMONARY: Chest is clear to auscultation, no wheezing or crackles. No chest wall tenderness ABDOMEN: Soft, nontender, nondistended, normoactive bowel sounds. No palpable organomegaly. MUSCULOSKELETAL: No joint swelling or deformity. EXTREMITIES: No cyanosis, clubbing, or pedal edema. -NEUROLOGICAL: Gross neurological examination did not reveal any focal deficits. Bilateral lateral upper and lower extremity tremor SKIN: No rashes. No petechiae Results CBC & Chem 7: 05/01/21 22:20 05/01/21 22:20 Labs: Abnormal Lab Results - Last 24 Hours (Table) 05/01/21 05/01/21 05/02/21 Range/Units 22:20 22:20 01:36 RBC 3.17 L (3.80-5.40) m/uL Hct 32.1 L (34.0-46.0) % MCV 101.3 H (80.0-100.0) fL MCH 35.8 H (25.0-35.0) pg Plt Count 110 L (150-450) k/uL Lymphocytes # 0.4 L (1.0-4.8) k/uL Sodium 128 L (137-145) mmol/L Carbon Dioxide 21 L (22-30) mmol/L Glucose 141 H (74-99) mg/dL Urine Protein Trace H (Negative) Urine Ketones 2+ H (Negative) Ur Leukocyte Esterase Moderate H (Negative) Urine WBC 16 H (0-5) /hpf Urine Bacteria Rare H (None) /hpf Urine Mucus Rare H (None) /hpf Assessment and Plan Assessment: Mild chest pain about the time of fall, not sure if it is cardiac in origin versus musculoskeletal from fall atrial flutter , new onset Fall without losing consciousness Right hip fracture, of the right proximal femur Mild hyponatremia, looks euvolemic Hypertension Exaggerated essential tremor in both upper and lower extremities Mild myelodysplastic syndrome History of hiatal hernia Plan: this is a pleasant 65 years old female who presents with right hip fracture also she has atrial flutter and some mild chest pain. We'll order troponin, check TSH. Repeat EKG Check echocardiogram. Consult cardiology for preop assessment. And for her atrial flutter and chest pain. Continue with gentle hydration and check sodium level. Check a bladder scan and repeat urinalysis . Check procalcitonin Labs and medication were reviewed.. Continue same treatment. Continue with symptomatic treatment. Resume home medication. Monitor lytes and vitals. DVT and GI prophylaxis. Further recommendations depends on the clinical course of the patient DVT prophylaxis: As per orthopedic surgery team GI Prophylaxis: Pepcid PT/OT: Pending Prognosis Is guarded Discussed this recommendation with the bedside nurse
[2021-05-02 10:11] LABS: African American GFR (CKD) >90 (>60 ml/min/1.73 sqM); Anion Gap 4 mmol/L; Blood Urea Nitrogen 13 mg/dL (7-17); Calcium 8.5 mg/dL (8.4-10.2); Carbon Dioxide 24 mmol/L (22-30); Chloride 101 mmol/L (98-107); Glucose 97 mg/dL (74-99); Non-African American GFR(CKD) >90 (>60 ml/min/1.73 sqM); Potassium 3.7 mmol/L (3.5-5.1); Sodium 129 mmol/L (137-145)
--- NOTE | 2021-05-02 11:32 | P.CRDCN ---
History of Present Illness Consult date: 05/02/21 History of present illness: HISTORY OF PRESENT ILLNESS: This is a 65-year-old female with a past medical history significant for hypertension, GERD, and essential tremors. Patient does not follow with a regulatory affairs associate. We have been asked to see the patient in consultation for atrial flutter. Patient examined at the bedside. Patient presented to the hospital after sustaining a fall. Patient was found to have a right hip fracture and is scheduled to undergo right hip hemiarthroplasty today with orthopedics. EKG was obtained which was interpreted by the computer as atrial flutter. Hence cardiology consult was initiated. The patient does not have a history of atrial flutter. When reviewing the patient's EKG, she does not appear to be in atrial flutter and is likely secondary to her essential tremor. The patient was hospitalized in August 2020 and cardiology was consulted at that time for possible atrial for ablation. However again at that time the patient was found to be in sinus mechanism and her abnormal EKG was thought to be secondary to her essential tremors. The patient denies any shortness of breath. She does report that her chest is sore from falling yesterday. Vital signs are stable. EKG reveals sinus mechanism with no signs of acute ischemia Chest xray mild hyperinflation of the lung and perihilar and upper lobe lucencies greater on the right similar to prior study may be reflective of COPD or emphysema. Laboratory data: W BC 3.9. Hemoglobin 10.0. Platelet count 110. Sodium 129. Potassium 3.7. BUN 13. Creatinine 0.61. Troponin negative 1. TSH 0.887. Current home cardiac medications include lisinopril 10 mg daily Most recent echocardiogram obtained in August 2020 revealed ejection fraction 55- 60%, mild mitral regurgitation, and mild tricuspid regurgitation REVIEW OF SYSTEMS: At the time of my exam: CONSTITUTIONAL: Denies fever or chills. HEENT: Denies blurred vision, vision changes, or eye pain. Denies hemoptysis CARDIOVASCULAR: Denies chest pain. Denies orthopnea. Denies PND. Denies palpitations RESPIRATORY: Denies shortness of breath. GASTROINTESTINAL: Denies abdominal pain. Denies nausea or vomiting. HEMATOLOGIC: Denies bleeding disorders. GENITOURINARY: Denies any blood in urine. SKIN: Denies pruitis. Denies rash. PHYSICAL EXAM: VITAL SIGNS: Reviewed. GENERAL: Well-developed in no acute distress. HEENT: Head is normocephalic. Pupils are equal, round. Sclerae anicteric. Mucous membranes of the mouth are moist. Neck supple. No JVD or thyromegaly LUNGS: Respirations even and unlabored. Lungs essentially clear to auscultation bilaterally. HEART: Regular rate and rhythm. S1 and S2 heard. ABDOMEN: Soft. Nondistended. Nontender. EXTREMITIES: No clubbing or cyanosis. Peripheral pulses intact. No lower extremity edema. Essential tremors noted. NEUROLOGIC: Awake and alert. Oriented x 3. ASSESSMENT: Abnormal EKG related to artifact from essential tremor. No evidence of atrial flutter with underlying sinus rhythm Right hip fracture Hypertension Essential tremors GERD PLAN: Patient's EKG is showing artifact related to her essential tremor. Underlying cardiac rhythm is sinus mechanism. Patient's echocardiogram reviewed from 2020. This does not need to be repeated. There is no contraindication for patient to undergo surgery from a cardiac standpoint. We will sign off. Please reconsult if needed. Nurse practitioner note has been reviewed by physician. Signing provider agrees with the documented findings, assessment, and plan of care. Past Medical History Past Medical History: Hypertension Additional Past Medical History / Comment(s): anemia, essential tremors, hiatal hernia. 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 Bone Marrow BX october 2020 Past Anesthesia/Blood Transfusion Reactions: No Reported Reaction Past Psychological History: No Psychological Hx Reported Smoking Status: Never smoker Past Alcohol Use History: None Reported Past Drug Use History: None Reported - Past Family History Mother Family Medical History: No Reported History Brother(s) Family Medical History: Cancer Additional Family Medical History / Comment(s): nonHodgkin's Lymphoma Medications and Allergies Home Medications Medication Instructions Recorded Confirmed Type lisinopriL [Zestril] 10 mg PO DAILY 06/07/18 05/01/21 History Primidone [Mysoline] 25 mg PO DAILY 08/25/20 05/01/21 History Primidone [Mysoline] 50 mg PO HS 08/25/20 05/01/21 History Omeprazole [PriLOSEC] 20 mg PO DAILY 11/15/20 05/01/21 History Allergies Allergy/AdvReac Type Severity Reaction Status Date / Time No Known Allergies Allergy Verified 05/01/21 22:36 Physical Exam Vitals: Vital Signs Temp Pulse Pulse Resp BP BP Pulse Ox 05/02/21 05:12 98.4 F 99 16 120/76 96 05/02/21 03:03 98 F 100 16 120/68 98 05/02/21 01:55 98.6 F 93 16 125/84 05/01/21 22:50 98.6 F 93 19 141/87 95 05/01/21 21:14 97 F L 106 H 18 128/67 94 L Intake and Output 05/01/21 05/02/21 05/02/21 22:59 06:59 14:59 Intake Total 225 Balance 225 Intake: Intake, IV Titration 225 Amount Sodium Chloride 0.9% 1, 225 000 ml @ 75 mls/hr IV . [id number] COUNT INCLUDES THE [facility] Rx#:[id number] Other: Voiding Method Indwelling Catheter Weight 62.142 kg 62.142 kg Results 05/02/21 09:28 05/02/21 09:53 Cardiac Enzymes 05/01/21 05/02/21 Range/Units 22:20 09:28 AST 24 (14-36) U/L Troponin I <0.012 (0.000-0.034) ng/mL Coagulation 05/01/21 Range/Units 22:20 PT 11.1 (9.0-12.0) sec APTT 22.1 (22.0-30.0) sec CBC 05/01/21 05/02/21 Range/Units 22:20 09:28 WBC 7.7 3.9 (3.8-10.6) k/uL RBC 3.17 L 2.75 L (3.80-5.40) m/uL Hgb 11.4 10.0 L (11.4-16.0) gm/dL Hct 32.1 L 28.4 L (34.0-46.0) % Plt Count 110 L (150-450) k/uL Comprehensive Metabolic Panel 05/01/21 05/02/21 Range/Units 22:20 09:53 Sodium 128 L 129 L (137-145) mmol/L Potassium 4.0 3.7 (3.5-5.1) mmol/L Chloride 99 101 (98-107) mmol/L Carbon Dioxide 21 L 24 (22-30) mmol/L BUN 17 13 (7-17) mg/dL Creatinine 0.52 0.61 (0.52-1.04) mg/dL Glucose 141 H 97 (74-99) mg/dL Calcium 9.0 8.5 (8.4-10.2) mg/dL AST 24 (14-36) U/L ALT 19 (4-34) U/L Alkaline Phosphatase 59 (38-126) U/L Total Protein 6.7 (6.3-8.2) g/dL Albumin 4.2 (3.5-5.0) g/dL Current Medications Generic Name Dose Route Start Last Admin Trade Name Freq PRN Reason Stop Dose Admin Acetaminophen 650 mg 05/02/21 07:23 05/02/21 07:36 Acetaminophen Tab 325 Mg Tab PO 650 mg Q6HR PRN Administration Fever and/ or Mild Pain Famotidine 20 mg 05/02/21 21:00 Famotidine 20 Mg/2 Ml Vial IV Q12HR DEIDRE Sodium Chloride 1,000 mls @ 75 mls/hr 05/01/21 22:45 05/02/21 02:21 Saline 0.9% IV 75 mls/hr .[id number] DEIDRE Administration Morphine Sulfate 4 mg 05/01/21 22:37 Morphine Sulfate 4 Mg/Ml Syringe IV Q4HR PRN Severe Pain Naloxone HCl 0.2 mg 05/01/21 22:37 Naloxone 0.4 Mg/Ml 1 Ml Vial IV Q2M PRN Opioid Reversal Ondansetron HCl 4 mg 05/01/21 22:37 Ondansetron 4 Mg/2 Ml Vial IVP Q8HR PRN Nausea And Vomiting Intake and Output 05/01/21 05/02/21 05/02/21 22:59 06:59 14:59 Intake Total 225 Balance 225 Intake: Intake, IV Titration 225 Amount Sodium Chloride 0.9% 1, 225 000 ml @ 75 mls/hr IV . [id number] COUNT INCLUDES THE [facility] Rx#:[id number] Other: Voiding Method Indwelling Catheter Weight 62.142 kg 62.142 kg 05/02/21 09:28 05/02/21 09:53
[2021-05-02 11:41] LABS: Appearance,Urine Cloudy (Clear); Bilirubin,Urine Negative (Negative); Blood,Urine Moderate (Negative); Color,Urine Light Yellow; Glucose,Urine (UA) Negative (Negative); Ketones,Urine Negative (Negative); Leukocyte Esterase,Urine Large (Negative); Nitrite,Urine Negative (Negative); PH, Urine 7.5 (5.0-8.0); Protein,Urine Negative (Negative); Specific Gravity,Urine 1.008 (1.001-1.035); Urobilinogen,Urine <2.0 mg/dL (<2.0)
[2021-05-02 11:42] LABS: Platelet Count 93 k/uL (150-450)
[2021-05-02 11:44] LABS: Anisocytosis (M) Present; Poikilocytosis (M) Present
--- NOTE | 2021-05-02 12:00 | ECHOF ---
Referral Reason:Rule out heart disease MEASUREMENTS -------- HEIGHT: 165.1 cm WEIGHT: 62.1 kg BP: 120/76 RVIDd: 2.6 cm (< 3.3) IVSd: 1.0 cm (0.6 - 1.1) LVIDd: 4.0 cm (3.9 - 5.3) LVPWd: 0.9 cm (0.6 - 1.1) IVSs: 1.3 cm LVIDs: 2.9 cm LVPWs: 1.3 cm LA Diam: 3.0 cm (2.7 - 3.8) LAESV Index (A-L): 23.22 ml/m Ao Diam: 3.6 cm (2.0 - 3.7) AV Cusp: 1.8 cm (1.5 - 2.6) MV EXCURSION: 17.007 mm (> 18.000) MV EF SLOPE: 121 mm/s (70 - 150) EPSS: 0.8 cm MV E Lai: 0.94 m/s MV DecT: 144 ms MV A Lai: 0.91 m/s MV E/A Ratio: 1.04 RAP: 5.00 mmHg RVSP: 29.32 mmHg FINDINGS -------- Sinus rhythm. This was a technically good study. The left ventricular size is normal. Left ventricular wall thickness is normal. Overall left vent ricular systolic function is normal with, an EF between 60 - 65 %. The right ventricle is normal in size. Normal LA size by volume 22+/-6 ml/m2. The right atrium is normal in size. Interatrial and interventricular septum intact. The aortic valve is trileaflet, and appears structurally normal. No aortic stenosis or regurgitation. The mitral valve leaflets are mildly thickened. Mild tricuspid regurgitation present. Right ventricular systolic pressure is normal at < 35 mmHg. The pulmonic valve was not well visualized. The aortic root size is normal. Normal inferior vena cava with normal inspiratory collapse consistent with estimated right atrial pre ssure of 5 mmHg. The inferior vena cava is mildly dilated. There is no pericardial effusion. CONCLUSIONS -------- 1. The left ventricular size is normal. 2. Left ventricular wall thickness is normal. 3. Overall left ventricular systolic function is normal with, an EF between 60 - 65 %. 4. The aortic valve is trileaflet, and appears structurally normal. No aortic stenosis or regurgitati on. 5. The mitral valve leaflets are mildly thickened. 6. Mild tricuspid regurgitation present. 7. The aortic root size is normal. 8. The inferior vena cava is mildly dilated. 9. There is no pericardial effusion. AIX ARCHITECT: Flores Godwin RDCS
--- NOTE | 2021-05-02 12:17 | P.HPOR ---
History of Present Illness H&P Date: 05/02/21 This patient is a 65-year-old female with past medical history of hypertension, essential tremors that presented to [facility] emergency department with complaints of right hip pain following a fall at home. The patient states she was at home and tripped over her cat, and landed directly onto the right hip. She was unable to get up or bear weight following her fall. EMS was called and the patient was transported to [facility] emergency department. X-rays of the right hip in the emergency department revealed a nondisplaced subcapital femoral neck fracture. Patient was admitted under the care of Dr. Paul with a consult placed to internal medicine for pre-operative medical clearance. Patient is seen and examined bedside this morning. She complains of isolated right hip pain at this time. She states her pain is well-controlled with Tylenol. She denies any additional injuries or complaints at this time. She does not take blood thinners. She states her last meal was yesterday around noon. She denies numbness or tingling in the right lower extremity. Vital signs stable. Past Medical History Past Medical History: Hypertension Additional Past Medical History / Comment(s): anemia, essential tremors, hiatal hernia. 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 Bone Marrow BX october 2020 Past Anesthesia/Blood Transfusion Reactions: No Reported Reaction Past Psychological History: No Psychological Hx Reported Smoking Status: Never smoker Past Alcohol Use History: None Reported Past Drug Use History: None Reported - Past Family History Mother Family Medical History: No Reported History Brother(s) Family Medical History: Cancer Additional Family Medical History / Comment(s): nonHodgkin's Lymphoma Medications and Allergies Home Medications Medication Instructions Recorded Confirmed Type lisinopriL [Zestril] 10 mg PO DAILY 06/07/18 05/01/21 History Primidone [Mysoline] 25 mg PO DAILY 08/25/20 05/01/21 History Primidone [Mysoline] 50 mg PO HS 08/25/20 05/01/21 History Omeprazole [PriLOSEC] 20 mg PO DAILY 11/15/20 05/01/21 History Allergies Allergy/AdvReac Type Severity Reaction Status Date / Time No Known Allergies Allergy Verified 05/01/21 22:36 Physical Examination On examination, the patient is sitting up in bed in no apparent distress. She is alert and oriented 3. Her head appears normocephalic and atraumatic. Her breathing appears nonlabored. On inspection of her bilateral upper extremities, there are no obvious deformities or signs of trauma. On inspection of her left lower extremity, there are no obvious deformities intensive trauma. On inspection of her right lower extremity, there are no obvious deformities. There is a small area of ecchymosis at the posterior hip. Small area of ecchymosis of the lateral lower leg. No open wounds or lacerations. Diffuse pain to palpation of the right hip. No pain with palpation of the right knee, lower leg, foot. No pain with passive [id number] of the right ankle. Motor and sensory function is intact of the right lower extremity. Dorsalis pedis pulse is easily palpable, the right lower extremity is warm and well perfused. Calf is soft and nontender to palpation. Results Right hip and pelvis x-ray 05/01/21: Non-displaced right subcapital femoral neck fracture. - Labs Labs: Abnormal Lab Results - Last 24 Hours (Table) 05/01/21 05/01/21 05/02/21 Range/Units 22:20 22:20 01:36 RBC 3.17 L (3.80-5.40) m/uL Hgb (11.4-16.0) gm/dL Hct 32.1 L (34.0-46.0) % MCV 101.3 H (80.0-100.0) fL MCH 35.8 H (25.0-35.0) pg Plt Count 110 L (150-450) k/uL Lymphocytes # 0.4 L (1.0-4.8) k/uL Sodium 128 L (137-145) mmol/L Carbon Dioxide 21 L (22-30) mmol/L Glucose 141 H (74-99) mg/dL Urine Appearance (Clear) Urine Protein Trace H (Negative) Urine Ketones 2+ H (Negative) Urine Blood (Negative) Ur Leukocyte Esterase Moderate H (Negative) Urine WBC 16 H (0-5) /hpf Urine Bacteria Rare H (None) /hpf Urine Mucus Rare H (None) /hpf 05/02/21 05/02/21 05/02/21 Range/Units 09:28 09:53 10:55 RBC 2.75 L (3.80-5.40) m/uL Hgb 10.0 L (11.4-16.0) gm/dL Hct 28.4 L (34.0-46.0) % MCV 103.4 H (80.0-100.0) fL MCH 36.2 H (25.0-35.0) pg Plt Count 93 L (150-450) k/uL Lymphocytes # 0.6 L (1.0-4.8) k/uL Sodium 129 L (137-145) mmol/L Carbon Dioxide (22-30) mmol/L Glucose (74-99) mg/dL Urine Appearance Cloudy H (Clear) Urine Protein (Negative) Urine Ketones (Negative) Urine Blood Moderate H (Negative) Ur Leukocyte Esterase Large H (Negative) Urine WBC (0-5) /hpf Urine Bacteria (None) /hpf Urine Mucus (None) /hpf Microbiology - Last 24 Hours (Table) 05/02/21 01:36 Urine Culture - Preliminary Urine,Voided H & H 05/01/21 05/02/21 Range/Units 22:20 09:28 Hgb 11.4 10.0 L (11.4-16.0) gm/dL Hct 32.1 L 28.4 L (34.0-46.0) % Coagulation 05/01/21 Range/Units 22:20 INR 1.0 (<1.2) Result Diagrams: 05/02/21 09:28 05/02/21 09:53 Assessment and Plan Assessment: Right femoral neck fracture Plan: - Clinical and imaging findings were discussed with the patient. The patient was discussed with Dr. Paul. Recommend right hip hemiarthroplasty for patient's femoral neck fracture this afternoon, pending medical clearance. Patient gave verbal consent to go forward with surgery bedside. - Internal medicine has been consulted for pre-operative medical clearance. - Bed rest, strict non-weight bearing right lower extremity. - Pain management as needed. - NPO diet. - Will plan for OR this afternoon.
[2021-05-02] MEDS ORDERED: TRANEXAMIC ACID 1,000 MG in SODIUM CHLORIDE 0.9% 100 ML IVPB ONE ×4 (12:18)
[2021-05-02] MEDS ORDERED: fentaNYL (PF) 50 MCG/ML 2 ML AMP ONE (15:41)
[2021-05-02] MEDS ORDERED: SODIUM CHLORIDE 0.9% 100 ML BAG ONE (15:41)
[2021-05-02] MEDS ORDERED: PROPOFOL 10 MG/ML 20 ML VIAL IV ONE (15:41)
[2021-05-02] MEDS ORDERED: KETAMINE 10 MG/ML 20 ML VIAL ONE (15:41)
[2021-05-02] MEDS ORDERED: TRANEXAMIC ACID 1,000 MG/10 ML VIAL ONE (15:41)
[2021-05-02] MEDS ORDERED: MIDAZOLAM 2 MG/2 ML VIAL ONE (15:41)
[2021-05-02] MEDS ORDERED: IV FLUID CONTINUATION 1,000 ML IV ONE (15:50)
[2021-05-02] MEDS ORDERED: ONDANSETRON 4 MG/2 ML VIAL IVP ONE (15:50)
[2021-05-02] MEDS ORDERED: DEXAMETHASONE SOD PHOSPHATE 4 MG/ML 1 ML VIAL IVP ONE (15:50)
[2021-05-02] MEDS ORDERED: ceFAZolin 1,000 MG in SODIUM CHLORIDE 0.9% 1,000 ML IRRIGATION ONE (16:35)
--- NOTE | 2021-05-02 17:08 | P.OP ---
Date of Procedure: 05/02/21 Preoperative Diagnosis: Subcapital fracture right hip Postoperative Diagnosis: Subcapital fracture right hip Procedure(s) Performed: Right hip hemiarthroplasty Implants: Lynch and nephew Polarstem size 3 standard with a collar Lynch & Nephew tandem unipolar, 49 mm Lynch & Nephew tandem unipolar 12/14 taper sleeve, +0 mm All components were press-fit. Anesthesia: spinal Surgeon: Tom Paul Product Support Analyst #1: Sharyn Gurrola Estimated Blood Loss (ml): 100 Pathology: other (Femoral head) Condition: stable Disposition: PACU Indications for Procedure: This is a 65-year-old female that slipped and fell at home. She sustained a subcapital fracture of her right hip. After discussing the surgical nonsurgical treatment options with her at length she was to proceed with a right hip hemiarthroplasty and informed consent was obtained. Operative Findings: The operative findings are consistent with a subcapital fracture of the right hip Description of Procedure: Patient was seen and evaluated in the preoperative area, consent was reviewed and the operative site was marked with a skin marker. Patient was then brought to the operating room and given 2 g of Ancef intravenously. A spinal anesthetic was administered by the anesthesia department. Patient was then placed in a lateral decubitus position and held with a Montral hip positioner. The bony prominences were well-padded and an axillary roll was placed. The hip was then prepped and draped in the usual sterile fashion. A universal timeout was then performed which confirmed the patient's name, surgical site, ALLERGIES, and procedure. A standard anterolateral approach the hip was performed. Skin and subcutaneous tissues were sharply incised with an incision centered over the tip of the greater trochanter. The incision was carefully dissected down to the fascia. The fascia was then split in line with skin incision and a Charnley retractor was gently placed. The abductors were then identified, and the anterior one third of the abductors were released off the trochanter and one large sleeve. The fracture hematoma was evacuated and the proximal femur was exposed by externally rotating the femur. The fracture site was readily visualized. Next, using an osteotomy guide, the proximal femur was osteotomized at the appropriate level of the above the lesser trochanter. This bone was then removed. Attention was then turned to the femoral head. Using a corkscrew, the femoral head was removed from the acetabulum without incident. The acetabulum was inspected, and found to have no significant arthrosis. Femoral head was then measured. Attention was then redirected to the femur. Proximal femur was re-exposed and a box osteotome was used to lateralize the proximal femur. A carver hand was then used to locate the femoral canal. Sequential broaching was then performed to the appropriate size. The calcar was then planed and trial head and neck were placed. The hip was then gently reduced. Leg lengths were checked and found to be equal. Hip was then taken through a full range of motion was stable throughout. The hip was then gently dislocated with the aid of a bone hook. The trial head and neck were then removed. The femoral broach was then inspected and found to have a secure fit. The broach was then removed. The hip was then copiously irrigated with antibiotic solution with a pulse lavage. Components were then opened and the femoral stem was then impacted into the proximal femur. The trunnion was cleaned and dried, and the femoral head and neck were then impacted. Hip was again gently reduced. Again leg lengths were checked and found to be equal, and the hip was taken through a full range of motion and found to be stable. The hip was again irrigated with pulsatile lavage, then followed by the Irrrisept solution. The abductors were then repaired through drill holes to the bone to the greater trochanter, utilizing #5 Ethibond suture. Next the fascia was repaired with #2 strata fix suture. The subcutaneous tissue was then repaired with 3-0 Vicryl. The subcuticular tissue was then repaired with 3-0 strata fix suture. Skin was then closed with Exofin skin glue. A sterile dressing was then applied and the patient was transported to the recovery room in stable condition. Product Support Analyst Sharyn Gurrola NP was required due to the complexity of surgery the need for skilled surgical asst. She assisted with positioning the patient, draping the patient, retraction during the surgery, and closure of the wound.
[2021-05-02] MEDS ORDERED: HYDROmorphone 0.5 MG/0.5 ML SYRINGE IVP PRN (17:30)
[2021-05-02] MEDS ORDERED: TEMAZEPAM 15 MG CAP PO PRN (17:30)
[2021-05-02] MEDS ORDERED: HYDROmorphone 1 MG/ML 1 ML SYRINGE IVP PRN (17:30)
[2021-05-02] MEDS ORDERED: MAGNESIUM HYDROXIDE 2,400 MG/10 ML CUP PO PRN (17:30)
[2021-05-02] MEDS ORDERED: HYDROcodone/APAP 5-325MG 1 EACH TAB PO PRN (17:30)
--- NOTE | 2021-05-02 18:32 | XR ---
RESULT: HISTORY: Status post hip surgery, assess surgical alignment TECHNIQUE: Single AP view of right hip. COMPARISON: 05/01/2021. FINDINGS: There is interval postsurgical changes of right hemiarthroplasty without immediate hardware complicat ion. No acute osseous abnormality. Alignment is anatomic. IMPRESSION: Status post right hip arthroplasty
[2021-05-02] MEDS: HYDROcodone/APAP 5-325MG 1 EACH TAB PO PRN (20:49)
[2021-05-02] MEDS: SENNOSIDES-DOCUSATE SODIUM 1 EACH TAB PO SCH (20:49)
[2021-05-02] MEDS: FAMOTIDINE 20 MG/2 ML VIAL IV SCH (20:51)
[2021-05-03] MEDS: HYDROcodone/APAP 5-325MG 1 EACH TAB PO PRN ×2 (02:06→08:53)
[2021-05-03 06:24] LABS: Basophils % (A) 0 %; Eosinophils # (A) 0.1 k/uL (0-0.7); Eosinophils % (A) 3 %; HCT 28.4 % (34.0-46.0); HGB 9.4 gm/dL (11.4-16.0); Lymphocytes # (A) 0.8 k/uL (1.0-4.8); Lymphocytes % (A) 21 %; MCH 35.6 pg (25.0-35.0); MCHC 33.2 g/dL (31.0-37.0); MCV 107.1 fL (80.0-100.0); Macrocytosis Moderate; Mean Platelet Volume 7.8; Monocytes # (A) 0.2 k/uL (0-1.0); Monocytes % (A) 4 %; Neutrophils # (A) 2.6 k/uL (1.3-7.7); Neutrophils % (A) 71 %; Platelet Count 85 k/uL (150-450); RBC 2.65 m/uL (3.80-5.40); WBC 3.7 k/uL (3.8-10.6)
[2021-05-03] MEDS: RIVAROXABAN 10 MG TAB PO SCH (08:55)
[2021-05-03] MEDS: FAMOTIDINE 20 MG/2 ML VIAL IV SCH (08:55)
[2021-05-03] MEDS ORDERED: HYDROcodone/APAP 7.5-325MG 1 EACH TAB PO PRN (10:53)
--- NOTE | 2021-05-03 10:53 | P.PN ---
Subjective Progress Note Date: 05/03/21 This is a 65 year-old female who is status post right hip hemiarthroplasty. This is post-operative day #1 and patient is seen and evaluated at bedside today. Patient states that her pain is controlled, but she is quite sore when she works with physical therapy. Patient states that she was able to transfer to a chair today. Patient reports pain in the right lower leg near the ankle. Objective - Vital Signs Vital signs: Vital Signs Temp 97.7 F 05/03/21 03:55 Pulse 70 05/03/21 08:55 Resp 16 05/03/21 03:55 BP 113/68 05/03/21 08:55 Pulse Ox 100 05/03/21 03:55 Intake & Output 05/02/21 05/03/21 05/03/21 18:59 06:59 18:59 Intake Total 851 600 Output Total 1400 1200 Balance -549 -600 Weight 62.142 kg Intake: IV 851 Intake, IV Titration 600 Amount Sodium Chloride 0.9% 1, 600 000 ml @ 75 mls/hr IV . [id number] [facility] Rx#:[id number] Output: Urine 1300 1200 Estimated Blood Loss 100 Other: Voiding Method Indwelling Catheter Indwelling Catheter - Exam Vital signs are stable. Patient is in no acute distress and is alert and oriented 3. Calf is soft and nontender to palpation. Dressing is clean, dry, and intact. There is tenderness to palpation over the distal fibula. There is ecchymosis and swelling in this area as well. Patient has full foot and ankle motion without pain or difficulty. Sensation intact. Neurovascular status and circulatory status are intact. - Labs CBC & Chem 7: 05/03/21 05:34 05/02/21 09:53 Labs: Abnormal Lab Results - Last 24 Hours (Table) 05/02/21 05/02/21 05/02/21 Range/Units 09:28 09:28 10:55 WBC (3.8-10.6) k/uL RBC (3.80-5.40) m/uL Hgb (11.4-16.0) gm/dL Hct (34.0-46.0) % MCV (80.0-100.0) fL MCH (25.0-35.0) pg Plt Count 93 L (150-450) k/uL Lymphocytes # 0.6 L (1.0-4.8) k/uL Procalcitonin 0.23 H (0.02-0.09) ng/mL Urine Appearance Cloudy H (Clear) Urine Blood Moderate H (Negative) Ur Leukocyte Esterase Large H (Negative) 05/03/21 Range/Units 05:34 WBC 3.7 L (3.8-10.6) k/uL RBC 2.65 L (3.80-5.40) m/uL Hgb 9.4 L (11.4-16.0) gm/dL Hct 28.4 L (34.0-46.0) % MCV 107.1 H (80.0-100.0) fL MCH 35.6 H (25.0-35.0) pg Plt Count 85 L (150-450) k/uL Lymphocytes # 0.8 L (1.0-4.8) k/uL Procalcitonin (0.02-0.09) ng/mL Urine Appearance (Clear) Urine Blood (Negative) Ur Leukocyte Esterase (Negative) Microbiology - Last 24 Hours (Table) 05/02/21 01:36 Urine Culture - Preliminary Urine,Voided Assessment and Plan (1) S/P hip hemiarthroplasty Current Visit: Yes Status: Acute Code(s): Z96.649 - PRESENCE OF UNSPECIFIED ARTIFICIAL HIP JOINT SNOMED Code(s): 681253250 (2) Closed right hip fracture Current Visit: Yes Status: Acute Code(s): S72.001A - FRACTURE OF UNSP PART OF NECK OF RIGHT FEMUR, INIT SNOMED Code(s): 948032320 (3) Fall Current Visit: Yes Status: Acute Code(s): W19.XXXA - UNSPECIFIED FALL, IN ITIAL ENCOUNTER SNOMED Code(s): 4491082 Plan: Continue routine postop care and pain control. Continue hip dislocation precautions and use of abductor pillow for 6 weeks. Continue anticoagulation with Xarelto. Weightbearing as tolerated with a walker. Leave dressing in place for 7 days. Appreciate input from medicine. Anticipate discharge to rehab in the next 24-48 hours.
[2021-05-03] MEDS: PRIMIDONE 25 MG TAB PO SCH (11:18)
[2021-05-03] MEDS ORDERED: FAMOTIDINE 20 MG TAB PO STA (11:23)
--- NOTE | 2021-05-03 11:27 | XR ---
EXAMINATION TYPE: XR tibia fibula RT DATE OF EXAM: 05/03/2021 CLINICAL HISTORY: Right leg pain. TECHNIQUE: Two views of the right leg are obtained. COMPARISON: None. FINDINGS: Osseous structures are demineralized. There is no acute fracture or dislocation seen in the right tibia or fibula. Mild to moderate tricompartment joint space loss and mild spurring at level o f knee joint. [id number] diffuse subcutaneous edema and soft tissue swelling in the right leg. Ankle mortise shows asymmetric medial narrowing. Correlate for injury or ligamentous damage. Occasion al tiny anterior phlebolith. No suspicious bony destruction. IMPRESSION: As above.
--- NOTE | 2021-05-03 13:56 | P.PN ---
Subjective This is a pleasant 65 years old female with past medical history of Hypertension, anemia, essential tremors, hiatal hernia. mild case of MDS Dx Patient states that yesterday she fell after she tripped with her trey cat , s he denies dizziness before or after a fall, she denies loss of consciousness. After the fall she has some pain in her right hip area which is now better controlled with Tylenol about 2/10 in severity. Also she had mild chest tenderness at 1/10 after the fall which is improved with Tylenol and now is down as 0/10. Also now she denies any dyspnea, no abdominal pain. No nausea vomiting or diarrhea. No fever. No coughing. No dysuria or increased frequency, no suprapubic tenderness She denies smoking, alcohol or illicit drugs. She Vitas looks hemodynamically stable., Afebrile. WBC is 7.7K. Hemoglobin 11.4. Platelets is 110. INR is 1.0, sodium 128, creatinine normal at 0.5 Liver enzymes not elevated. Chest x-ray: Mild hyperinflation of the lungs and perihilar and upper lobe lucencies greater on the right similar to prior study may be reflective of COPD/emphysema EKG showing atrial flutter with a rate of QRS at 91/m, no significant ST-T changes but slow R-wave in the distal 3. QTC is 474 In the emergency room patient started on morphine and normal saline x there is a lucency and cortical step of the femoral head neck junction tendon for nondisplaced fracture of the right proximal femur 05/03/2020 Status post right hip arthroplasty, fish postoperative day #1 patient is fully awake and oriented, lying comfortable in bed denies any specific symptom however she has some pain in her right hip area about 3/10 in severity. She has tremor in both upper and lower extremity more on the right side which is for neck and her neurologist is Dr. mathew, her primidone was restarted today. Also she has tibia and fibula x-ray per orthopedic team showing no fracture or dislocation but symmetric ankle mortise correlate for ligament injury. Sodium 129, repeat sodium is pending. She has mild pancytopenia with WBC of 3.7, hemoglobin 9.4 and platelet count of 85. Check vitamin B12 and folate. Also patient with evidence of urinary tract infection and culture showed gram- negative bacilli. 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 [id number] [facility] Rx#:[id number] Output: Urine 1300 1200 Estimated Blood Loss 100 Other: Voiding Method Indwelling Catheter Indwelling Catheter - Exam GENERAL: The patient is alert and oriented x3, not in any acute distress. Well developed, well nourished. HEENT: Pupils are round and equally reacting to light. EOMI. No scleral icterus. No conjunctival pallor. Normocephalic, atraumatic. No pharyngeal erythema. No thyromegaly. CARDIOVASCULAR: S1 and S2 present. No murmurs, rubs, or gallops. PULMONARY: Chest is clear to auscultation, no wheezing or crackles. No chest wall tenderness ABDOMEN: Soft, nontender, nondistended, normoactive bowel sounds. No palpable organomegaly. MUSCULOSKELETAL: No joint swelling or deformity. EXTREMITIES: No cyanosis, clubbing, or pedal edema. -NEUROLOGICAL: Gross neurological examination did not reveal any focal deficits. Bilateral lateral upper and lower extremity tremor SKIN: No rashes. No petechiae - Labs CBC & Chem 7: 05/03/21 05:34 05/02/21 09:53 Labs: Abnormal Lab Results - Last 24 Hours (Table) 05/02/21 05/02/21 05/02/21 Range/Units 09:28 09:28 09:53 WBC (3.8-10.6) k/uL RBC 2.75 L (3.80-5.40) m/uL Hgb 10.0 L (11.4-16.0) gm/dL Hct 28.4 L (34.0-46.0) % MCV 103.4 H (80.0-100.0) fL MCH 36.2 H (25.0-35.0) pg Plt Count 93 L (150-450) k/uL Lymphocytes # 0.6 L (1.0-4.8) k/uL Sodium 129 L (137-145) mmol/L Procalcitonin 0.23 H (0.02-0.09) ng/mL Urine Appearance (Clear) Urine Blood (Negative) Ur Leukocyte Esterase (Negative) 05/02/21 05/03/21 Range/Units 10:55 05:34 WBC 3.7 L (3.8-10.6) k/uL RBC 2.65 L (3.80-5.40) m/uL Hgb 9.4 L (11.4-16.0) gm/dL Hct 28.4 L (34.0-46.0) % MCV 107.1 H (80.0-100.0) fL MCH 35.6 H (25.0-35.0) pg Plt Count 85 L (150-450) k/uL Lymphocytes # 0.8 L (1.0-4.8) k/uL Sodium (137-145) mmol/L Procalcitonin (0.02-0.09) ng/mL Urine Appearance Cloudy H (Clear) Urine Blood Moderate H (Negative) Ur Leukocyte Esterase Large H (Negative) Microbiology - Last 24 Hours (Table) 05/02/21 01:36 Urine Culture - Preliminary Urine,Voided Assessment and Plan Assessment: Right hip fracture, of the right proximal femur, Status post right proximal hip arthroplasty Fall without losing consciousness Urinary tract infection secondary to Crohn negative bacilli Mild hyponatremia, looks euvolemic Hypertension Mild pancytopenia Exaggerated essential tremor in both upper and lower extremities Mild myelodysplastic syndrome History of hiatal hernia Chronic exaggerated essential tremor on primidone Plan: this is a pleasant 65 years old female who presents with right hip fracture also she has atrial flutter and some mild chest pain. Monitor sodium level Orthopedic team on the case. The primary team Continue ceftriaxone follow-up urine culture. Check vitamin B12 and folate Labs and medication were reviewed.. Continue same treatment. Continue with symptomatic treatment. Resume home medication. Monitor lytes and vitals. DVT and GI prophylaxis. Further recommendationsas per clinical course of the patient DVT prophylaxis: Xarelto per surgery team GI Prophylaxis: Pepcid PT/OT: Pending Prognosis is guarded
[2021-05-03 14:54] LABS: African American GFR (CKD) >90 (>60 ml/min/1.73 sqM); Anion Gap 5 mmol/L; Blood Urea Nitrogen 11 mg/dL (7-17); Calcium 8.4 mg/dL (8.4-10.2); Carbon Dioxide 24 mmol/L (22-30); Chloride 106 mmol/L (98-107); Glucose 85 mg/dL (74-99); Non-African American GFR(CKD) >90 (>60 ml/min/1.73 sqM); Potassium 3.8 mmol/L (3.5-5.1); Sodium 135 mmol/L (137-145)
[2021-05-03] MEDS: HYDROcodone/APAP 7.5-325MG 1 EACH TAB PO PRN ×2 (15:55→21:32)
[2021-05-03] MEDS ORDERED: PRIMIDONE 50 MG TAB PO SCH (21:00)
[2021-05-03] MEDS: SENNOSIDES-DOCUSATE SODIUM 1 EACH TAB PO SCH (21:33)
[2021-05-03] MEDS: FAMOTIDINE 20 MG TAB PO SCH (21:33)
[2021-05-04] MEDS: SODIUM CHLORIDE 0.9% 1,000 ML IV SCH ×2 (02:32→08:35)
[2021-05-04] MEDS: HYDROcodone/APAP 7.5-325MG 1 EACH TAB PO PRN ×2 (04:38→10:27)
[2021-05-04] MEDS: FAMOTIDINE 20 MG TAB PO SCH (08:34)
[2021-05-04] MEDS: PRIMIDONE 25 MG TAB PO SCH (08:34)
[2021-05-04] MEDS: RIVAROXABAN 10 MG TAB PO SCH (08:35)
[2021-05-04] MEDS ORDERED: lisinopriL 10 MG TAB PO SCH (09:00)
--- NOTE | 2021-05-04 10:42 | P.DS ---
Providers Date of admission: 05/01/21 22:31 Expected date of discharge: 05/04/21 Attending physician: Tom Paul Consults: 05/01/21 22:52 Consult Physician Routine Consulting Provider: Rosita Osorio Consult Reason/Comments: Medical management Do you want consulting provider notified?: Yes Primary care physician: Melina Santa - Discharge Diagnosis(es) (1) S/P hip hemiarthroplasty Current Visit: Yes Status: Acute (2) Closed right hip fracture Current Visit: Yes Status: Acute (3) Fall Current Visit: Yes Status: Acute Hospital Course: This is a 65-year-old female who fell at home and sustained a subcapital fracture of the right femur. The patient was evaluated in the emergency room where x-rays revealed a nondisplaced subcapital fracture of the right femur. After discussion and consideration patient elects to proceed with right hip hemiarthroplasty. The patient is seen preoperatively by Dr. Paul and cleared for surgery by internal medicine Patient is admitted to [facility] on 05/01/2021 and right hip hemiarthroplasty is performed on 05/02/2021. The procedures performed without complication or sequelae. The patient is doing well postoperatively. Labs and vital signs are stable on day of discharge. On day of discharge patient's dressing is clean, dry and intact. There is minimal erythema. There is no drainage noted at this time. There is minimal soft tissue swelling to the hip and thigh. Patient has full foot and ankle motion without difficulty or pain. Neurovascular status to the right lower extremity is intact. Patient is discharged to rehab in good condition. Please see med rec for accurate list of home medications. Patient Condition at Discharge: Stable Plan - Discharge Summary New Discharge Prescriptions: New HYDROcodone/APAP 7.5-325MG [Wayan 7.5-325] 1 - 2 tab PO Q6H PRN #32 tab PRN Reason: Pain Sennosides [Senokot] 2 tab PO DAILY PRN #60 tablet PRN Reason: Constipation Rivaroxaban [Xarelto] 10 mg PO DAILY #30 tab No Action lisinopriL [Zestril] 10 mg PO DAILY Primidone [Mysoline] 25 mg PO DAILY Primidone [Mysoline] 50 mg PO HS Omeprazole [PriLOSEC] 20 mg PO DAILY Discharge Medication List lisinopriL [Zestril] 10 mg PO DAILY 02/17/19 [History] Primidone [Mysoline] 25 mg PO DAILY 08/25/20 [History] Primidone [Mysoline] 50 mg PO HS 08/25/20 [History] Omeprazole [PriLOSEC] 20 mg PO DAILY 11/15/20 [History] HYDROcodone/APAP 7.5-325MG [Wayan 7.5-325] 1 - 2 tab PO Q6H PRN #32 tab 05/03/21 [Rx] Rivaroxaban [Xarelto] 10 mg PO DAILY #30 tab 05/03/21 [Rx] Sennosides [Senokot] 2 tab PO DAILY PRN #60 tablet 05/03/21 [Rx] Follow up Appointment(s)/Referral(s): Melina Santa MD [Primary Care Provider] - 1-2 days Tom Paul DO [Doctor of Osteopathic Medicine] - 2 Weeks Activity/Diet/Wound Care/Special Instructions: Weightbearing as tolerated with walker. Leave dressing intact. Dressing may be removed by home care nurse or by patient in 7 days. Then change dressing twice daily until follow up. May shower with initial dressing intact and after removal. If dressing become saturated, please remove. Please take Xarelto as prescribed to help lower the risk of blood clots. Recommend use of compression stockings daily until follow up to help prevent swelling and blood clots. May remove at night before sleeping. Please follow-up with [facility] in 2 weeks and call with any questions or concerns, . Discharge Disposition: TRANSFER TO SNF/ECF
[2021-05-04 13:31] VITALS: BP 126/74; RESP 17; TEMP 98.7
[2021-05-04 14:03] VITALS: PULSE 62
--- NOTE | 2021-05-04 22:18 | P.PN ---
Subjective This is a pleasant 65 years old female with past medical history of Hypertension, anemia, essential tremors, hiatal hernia. mild case of MDS Dx Patient states that yesterday she fell after she tripped with her trey cat , s he denies dizziness before or after a fall, she denies loss of consciousness. After the fall she has some pain in her right hip area which is now better controlled with Tylenol about 2/10 in severity. Also she had mild chest tenderness at 1/10 after the fall which is improved with Tylenol and now is down as 0/10. Also now she denies any dyspnea, no abdominal pain. No nausea vomiting or diarrhea. No fever. No coughing. No dysuria or increased frequency, no suprapubic tenderness She denies smoking, alcohol or illicit drugs. She Vitas looks hemodynamically stable., Afebrile. WBC is 7.7K. Hemoglobin 11.4. Platelets is 110. INR is 1.0, sodium 128, creatinine normal at 0.5 Liver enzymes not elevated. Chest x-ray: Mild hyperinflation of the lungs and perihilar and upper lobe lucencies greater on the right similar to prior study may be reflective of COPD/emphysema EKG showing atrial flutter with a rate of QRS at 91/m, no significant ST-T changes but slow R-wave in the distal 3. QTC is 474 In the emergency room patient started on morphine and normal saline x there is a lucency and cortical step of the femoral head neck junction tendon for nondisplaced fracture of the right proximal femur 05/03/2020 Status post right hip arthroplasty, fish postoperative day #1 patient is fully awake and oriented, lying comfortable in bed denies any specific symptom however she has some pain in her right hip area about 3/10 in severity. She has tremor in both upper and lower extremity more on the right side which is for neck and her neurologist is Dr. mathew, her primidone was restarted today. Also she has tibia and fibula x-ray per orthopedic team showing no fracture or dislocation but symmetric ankle mortise correlate for ligament injury. Sodium 129, repeat sodium is pending. She has mild pancytopenia with WBC of 3.7, hemoglobin 9.4 and platelet count of 85. Check vitamin B12 and folate. Also patient with evidence of urinary tract infection and culture showed gram- negative bacilli. Continue with Rocephin pending final culture results Social Work Administrator yesterday found her Ultram flutter on EKG actually is artifact from her tremor patient currently has Curiel catheter 05/04/2020 Patient today was doing well. She is back to her baseline. She is fully awake and oriented. Her tremor is controlled. She denies any symptoms. No chest pain or dyspnea. No abdominal pain. Her pain at right hip area is controlled. No urinary symptoms. Curiel catheter is in place and management of catheter is deferred to surgery primary team. Her urine culture is growing sensitive E. coli. Patient will be discharged on 3 more days of Ceftin. Orthopedic team are planning for discharge and the patient to rehab today. Vitals and labs are reviewed and the looks stable Sodium improved up to 135. WBC 3.7, hemoglobin stable at 9.4, mild anemia expected from surgery. Platelet count is 85 which is stable. B12 level checked and it is within the reference normal range at 378 which is better than last time on 01/16/2021, level stable since 2019. Folate level is normal at 17.9. TSH is normal at 0.8 Patient is medically stable. Objective - Vital Signs Vital signs: Vital Signs Temp 98.7 F 05/04/21 13:00 Pulse 76 05/04/21 13:00 Resp 17 05/04/21 13:00 BP 126/74 05/04/21 13:00 Pulse Ox 98 05/04/21 13:00 Intake & Output 05/04/21 05/04/21 05/05/21 06:59 18:59 06:59 Output Total 1350 Balance -1350 Output: Urine 1350 Other: Voiding Method Indwelling Catheter Indwelling Catheter - Exam GENERAL: The patient is alert and oriented x3, not in any acute distress. Well developed, well nourished. HEENT: Pupils are round and equally reacting to light. EOMI. No scleral icterus. No conjunctival pallor. Normocephalic, atraumatic. No pharyngeal erythema. No thyromegaly. CARDIOVASCULAR: S1 and S2 present. No murmurs, rubs, or gallops. PULMONARY: Chest is clear to auscultation, no wheezing or crackles. No chest wall tenderness ABDOMEN: Soft, nontender, nondistended, normoactive bowel sounds. No palpable organomegaly. MUSCULOSKELETAL: No joint swelling or deformity. EXTREMITIES: No cyanosis, clubbing, or pedal edema. -NEUROLOGICAL: Gross neurological examination did not reveal any focal deficits. Bilateral lateral upper and lower extremity tremor SKIN: No rashes. No petechiae - Labs CBC & Chem 7: 05/03/21 05:34 05/03/21 05:34 Labs: Microbiology - Last 24 Hours (Table) 05/02/21 01:36 Urine Culture - Final Urine,Voided Escherichia coli Assessment and Plan Assessment: Right hip fracture, of the right proximal femur, Status post right proximal hip arthroplasty Fall without losing consciousness Urinary tract infection secondary to E. coli Mild hyponatremia, looks euvolemic . Significantly improved close to normal Hypertension Mild pancytopenia Exaggerated essential tremor in both upper and lower extremities Mild myelodysplastic syndrome History of hiatal hernia Chronic exaggerated essential tremor on primidone Plan: this is a pleasant 65 years old female who presents with right hip fracture also she has atrial flutter and some mild chest pain. Discharge on 3 days of Ceftin. Patient is medically stable for discharge once cleared by orthopedic primary team Curiel catheter management is deferred to surgery primary team Orthopedic team on the case. The primary team Continue ceftriaxone follow-up urine culture. Check vitamin B12 and folate Labs and medication were reviewed.. Continue same treatment. Continue with symptomatic treatment. Resume home medication. Monitor lytes and vitals. DVT and GI prophylaxis. Further recommendations as per clinical course of the patient DVT prophylaxis: Xarelto per surgery team GI Prophylaxis: Pepcid PT/OT: Pending Prognosis is guarded
== END 2021-05-04 20:37 | DRG 522 ==
LOC: EC 18:11 → 4SSUR 22:31 → 5NMEDONC 05-02 00:56
PROVIDERS: ADMIT Orthopaedic Surgery; ATTEND Orthopaedic Surgery
PROC: 0SRR0JZ Replacement of Right Hip Joint, Femoral Surface with Synthetic Substitute, Open Approach (ICD-10-PCS; principal; 2021-05-02 10:50)
DX: S72.011A Unspecified intracapsular fracture of right femur, initial encounter for closed fracture (principal); D61.818 Other pancytopenia; E87.1 Hypo-osmolality and hyponatremia; I48.92 Unspecified atrial flutter; N39.0 Urinary tract infection, site not specified; S20.219A Contusion of unspecified front wall of thorax, initial encounter; W01.0XXA Fall on same level from slipping, tripping and stumbling without subsequent striking against object, initial encounter; Z20.822 Contact with and (suspected) exposure to COVID-19; D46.9 Myelodysplastic syndrome, unspecified; G25.0 Essential tremor; I10 Essential (primary) hypertension; K21.9 Gastro-esophageal reflux disease without esophagitis; Y92.009 Unspecified place in unspecified non-institutional (private) residence as the place of occurrence of the external cause; Z79.899 Other long term (current) drug therapy; Z80.7 Family history of other malignant neoplasms of lymphoid, hematopoietic and related tissues
CPT/HCPCS: 71046; 73501; 73502; 80048; 80053; 81001; 82607; 82746; 84145; 84443; 84484; 85025; 85610; 85730; 86850; 86900; 86901; 87077; 87086; 87186; 87635; 88305; 88311; 93005; 93306; 94760; 99285

== ENCOUNTER 2022-11-20 10:09 | Inpatient (IN) | payer BC, MEDICARE ==
--- NOTE | 2022-11-20 11:28 | ED ---
General Adult HPI - General Chief complaint: Weakness Stated complaint: Weakness Time Seen by Provider: 11/20/22 10:27 Source: patient, family, EMS, RN notes reviewed Mode of arrival: EMS Limitations: no limitations - History of Present Illness Initial comments: Patient is a pleasant 8 he 7-year-old female presenting to the emergency department with concerns for weakness. Onset of symptoms was this morning. Last known well was last night. Patient is having difficulty with her legs supporting her weight. Patient states it is both legs. Patient states she is unable to get out of her chair. Patient states she is unable to walk. Patient does have history of essential tremors however no history of Parkinson's. Patient states no confusion or speech problems. No upper extremity weakness. - Related Data Home Medications Medication Instructions Recorded Confirmed lisinopriL [Zestril] 10 mg PO DAILY 06/07/18 11/20/22 Primidone [Mysoline] 50 mg PO TID 08/25/20 11/20/22 Ascorbic Acid [Vitamin C] 1,000 mg PO DAILY 11/20/22 11/20/22 Brimonidine Tartrate/Timolol 1 drop RIGHT EYE BID 11/20/22 11/20/22 [Brimonidine-Timolol 0.2%-0.5%] Cholecalciferol [Vitamin D3 (25 25 mcg PO DAILY 11/20/22 11/20/22 Mcg = 1000 Iu)] Netarsudil Mesylat/Latanoprost 1 drop BOTH EYES HS 11/20/22 11/20/22 [Rocklatan 0.02%-0.005% Eye Drp] Vitamin B Complex 1 cap PO DAILY 11/20/22 11/20/22 Allergies Allergy/AdvReac Type Severity Reaction Status Date / Time No Known Allergies Allergy Verified 11/20/22 13:46 Review of Systems ROS Statement: Those systems with pertinent positive or pertinent negative responses have been documented in the HPI. ROS Other: All systems not noted in ROS Statement are negative. Constitutional: Denies: fever Eyes: Denies: eye pain ENT: Denies: ear pain Respiratory: Denies: dyspnea Cardiovascular: Denies: chest pain Endocrine: Denies: fatigue Gastrointestinal: Denies: abdominal pain Genitourinary: Denies: dysuria Musculoskeletal: Denies: back pain Skin: Denies: rash Neurological: Reports: as per HPI. Denies: headache, numbness, paresthesias, confusion Past Medical History Past Medical History: Hypertension Additional Past Medical History / Comment(s): anemia, essential tremors, hiatal hernia. 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 Bone Marrow BX october 2020 Past Anesthesia/Blood Transfusion Reactions: No Reported Reaction Past Psychological History: No Psychological Hx Reported Smoking Status: Never smoker Past Alcohol Use History: None Reported Past Drug Use History: None Reported - Past Family History Mother Family Medical History: No Reported History Brother(s) Family Medical History: Cancer Additional Family Medical History / Comment(s): nonHodgkin's Lymphoma General Exam Limitations: no limitations General appearance: alert, in no apparent distress, other (tremor present) Head exam: Present: atraumatic, normocephalic Eye exam: Present: normal appearance, PERRL, EOMI ENT exam: Present: normal oropharynx Neck exam: Present: normal inspection Respiratory exam: Present: normal lung sounds bilaterally Cardiovascular Exam: Present: regular rate, normal rhythm GI/Abdominal exam: Present: soft. Absent: tenderness Extremities exam: Present: normal inspection, full ROM. Absent: tenderness Back exam: Present: normal inspection. Absent: tenderness Neurological exam: Present: alert, oriented X3, CN II-XII intact Expanded Neurological exam: Present: protecting the airway Patient oriented to: Present: person, place, time Speech: Present: fluid speech Cranial nerves: EOM's Intact: Normal Sensory exam: Upper Extremity Light Touch: Normal, Lower Extremity Light Touch: Normal Motor strength exam: RUE: 5, LUE: 5, RLE: 4, LLE: 4 Eye Response: (4) open spontaneously Motor Response: (6) obeys commands Verbal Response: (5) oriented Psychiatric exam: Present: normal affect, normal mood Skin exam: Present: normal color Course Vital Signs 11/20/22 11/20/22 10:13 13:18 Temperature 98.2 F Pulse Rate 81 93 Respiratory 18 20 Rate Blood Pressure 118/91 130/81 O2 Sat by Pulse 100 97 Oximetry EKG Findings - EKG Results: EKG: interpreted by ERMD (Right axis. Artifact is present.), normal QRS, normal ST/T EKG shows: atrial fibrillation Medical Decision Making - Medical Decision Making Was pt. sent in by a medical professional or institution (, THIERNO, FREIGHT BRAKE OPERATOR, urgent care, hospital, or jail...) When possible be specific @ -No Did you speak to anyone other than the patient for history (EMS, parent, family, police, friend...)? What history was obtained from this source @ -No Did you review nursing and triage notes (agree or disagree)? Why? @ -I reviewed and agree with nursing and triage notes Were old charts reviewed (outside hosp., previous admission, EMS record, old EKG, old radiological studies, urgent care reports/EKG's, jail records)? Report findings @ -No old charts were reviewed Differential Diagnosis (chest pain, altered mental status, abdominal pain women, abdominal pain men, vaginal bleeding, weakness, fever, dyspnea, syncope, headache, dizziness, GI bleed, back pain, seizure, CVA, palpatations, mental health, musculoskeletal)? @ -Differential Weakness: Hypoglycemia, shock, sepsis, hyponatremia, anemia, infection, ID, ETOH, adverse medicine reaction, overdose, stroke, this is not meant to be an all-inclusive list. EKG interpreted by me (3pts min.). @ -As above X-rays interpreted by me (1pt min.). @ -Chest x-ray shows no acute process CT interpreted by me (1pt min.). @ -CT scan the brain does not reveal large mass or hemorrhage U/S interpreted by me (1pt. min.). @ -None done What testing was considered but not performed or refused? (CT, X-rays, U/S, labs)? Why? @ -None What meds were considered but not given or refused? Why? @ -None Did you discuss the management of the patient with other professionals (professionals i.e. THIERNO Louie, FREIGHT BRAKE OPERATOR, lab, RT, psych nurse, social media coordinator, machine printer hose, teacher, security public safety officer, adult protective caseworker)? Give summary @ -Case was discussed with Dr. santoyo, who will admit for Dr. Santa Was smoking cessation discussed for >3mins.? @ -No Was critical care preformed (if so, how long)? @ -No Were there social determinants of health that impacted care today? How? (Home lessness, low income, unemployed, alcoholism, drug addiction, transportation, low edu. Level, literacy, decrease access to med. care, nursing home, rehab)? @ -No Was there de-escalation of care discussed even if they declined (Discuss DNR or withdrawal of care, Hospice)? DNR status @ -No What co-morbidities impacted this encounter? (DM, HTN, Smoking, COPD, CAD, Cancer, CVA, ARF, Chemo, Hep., AIDS, mental health diagnosis, sleep apnea, morbid obesity)? @ -None Was patient admitted / discharged? Hospital course, mention meds given and route, prescriptions, significant lab abnormalities, going to OR and other pertinent info. @ -Patient reevaluated and unchanged. Patient updated on results and plan. Questionable H a fibrillation on EKG and patient will be evaluated by cardiology. Patient will also need neurology and therapy for difficulty with walking Undiagnosed new problem with uncertain prognosis? @ -No Drug Therapy requiring intensive monitoring for toxicity (Heparin, Nitro, Insulin, Cardizem)? @ -No Were any procedures done? @ -No Diagnosis/symptom? @ -Leg weakness Acute, or Chronic, or Acute on Chronic? @ -Acute Uncomplicated (without systemic symptoms) or Complicated (systemic symptoms)? @ -default Side effects of treatment? @ -No Exacerbation, Progression, or Severe Exacerbation? @ -No Poses a threat to life or bodily function? How? (Chest pain, USA, ID, pneumonia, PE, COPD, DKA, ARF, appy, cholecystitis, CVA, Diverticulitis, Homicidal, Suicidal, threat to staff... and all critical care pts) @ -No - Lab Data Result diagrams: 11/20/22 11:59 11/20/22 11:59 Lab Results 11/20/22 11/20/22 11/20/22 Range/Units 11:59 11:59 11:59 WBC 2.9 L (3.8-10.6) k/uL RBC 3.08 L (3.80-5.40) m/uL Hgb 11.1 L (11.4-16.0) gm/dL Hct 32.6 L (34.0-46.0) % MCV 106.0 H (80.0-100.0) fL MCH 36.0 H (25.0-35.0) pg MCHC 34.0 (31.0-37.0) g/dL RDW 14.3 (11.5-15.5) % Plt Count 109 L (150-450) k/uL MPV 8.8 Neutrophils % 54 % Lymphocytes % 30 % Monocytes % 3 % Eosinophils % 13 % Basophils % 0 % Neutrophils # 1.5 (1.3-7.7) k/uL Lymphocytes # 0.9 L (1.0-4.8) k/uL Monocytes # 0.1 (0-1.0) k/uL Eosinophils # 0.4 (0-0.7) k/uL Basophils # 0.0 (0-0.2) k/uL Poikilocytosis Slight Macrocytosis Moderate PT 10.6 (9.0-12.0) sec INR 1.0 (<1.2) APTT 23.1 (22.0-30.0) sec Sodium (137-145) mmol/L Potassium (3.5-5.1) mmol/L Chloride (98-107) mmol/L Carbon Dioxide (22-30) mmol/L Anion Gap mmol/L BUN (7-17) mg/dL Creatinine (0.52-1.04) mg/dL Est GFR (CKD-EPI)AfAm (>60 ml/min/1.73 sqM) Est GFR (CKD-EPI)NonAf (>60 ml/min/1.73 sqM) Glucose (74-99) mg/dL Plasma Lactic Acid Miguel A (0.7-2.0) mmol/L Calcium (8.4-10.2) mg/dL Phosphorus (2.5-4.5) mg/dL Magnesium (1.6-2.3) mg/dL Total Bilirubin (0.2-1.3) mg/dL AST (14-36) U/L ALT (4-34) U/L Alkaline Phosphatase (38-126) U/L Troponin I (0.000-0.034) ng/mL Total Protein (6.3-8.2) g/dL Albumin (3.5-5.0) g/dL TSH (0.465-4.680) mIU/L Free T4 (0.78-2.19) ng/dL Free T3 pg/mL (2.8-5.3) pg/ml Urine Color Light Yellow Urine Appearance Cloudy H (Clear) Urine pH 7.0 (5.0-8.0) Ur Specific Superior 1.010 (1.001-1.035) Urine Protein Negative (Negative) Urine Glucose (UA) Negative (Negative) Urine Ketones 2+ H (Negative) Urine Blood Moderate H (Negative) Urine Nitrite Negative (Negative) Urine Bilirubin Negative (Negative) Urine Urobilinogen <2.0 (<2.0) mg/dL Ur Leukocyte Esterase Negative (Negative) Urine RBC 15 H (0-5) /hpf Urine WBC 4 (0-5) /hpf Ur Squamous Epith Cells 1 (0-4) /hpf Urine Bacteria Rare H (None) /hpf Urine Mucus Rare H (None) /hpf 11/20/22 11/20/22 11/20/22 Range/Units 11:59 11:59 11:59 WBC (3.8-10.6) k/uL RBC (3.80-5.40) m/uL Hgb (11.4-16.0) gm/dL Hct (34.0-46.0) % MCV (80.0-100.0) fL MCH (25.0-35.0) pg MCHC (31.0-37.0) g/dL RDW (11.5-15.5) % Plt Count (150-450) k/uL MPV Neutrophils % % Lymphocytes % % Monocytes % % Eosinophils % % Basophils % % Neutrophils # (1.3-7.7) k/uL Lymphocytes # (1.0-4.8) k/uL Monocytes # (0-1.0) k/uL Eosinophils # (0-0.7) k/uL Basophils # (0-0.2) k/uL Poikilocytosis Macrocytosis PT (9.0-12.0) sec INR (<1.2) APTT (22.0-30.0) sec Sodium 137 (137-145) mmol/L Potassium 3.8 (3.5-5.1) mmol/L Chloride 101 (98-107) mmol/L Carbon Dioxide 28 (22-30) mmol/L Anion Gap 8 mmol/L BUN 13 (7-17) mg/dL Creatinine 0.53 (0.52-1.04) mg/dL Est GFR (CKD-EPI)AfAm >90 (>60 ml/min/1.73 sqM) Est GFR (CKD-EPI)NonAf >90 (>60 ml/min/1.73 sqM) Glucose 101 H (74-99) mg/dL Plasma Lactic Acid Miguel A 0.9 (0.7-2.0) mmol/L Calcium 9.2 (8.4-10.2) mg/dL Phosphorus 3.6 (2.5-4.5) mg/dL Magnesium 2.4 H (1.6-2.3) mg/dL Total Bilirubin 0.7 (0.2-1.3) mg/dL AST 19 (14-36) U/L ALT 16 (4-34) U/L Alkaline Phosphatase 55 (38-126) U/L Troponin I 0.061 H* (0.000-0.034) ng/mL Total Protein 7.1 (6.3-8.2) g/dL Albumin 4.5 (3.5-5.0) g/dL TSH 0.815 (0.465-4.680) mIU/L Free T4 1.34 (0.78-2.19) ng/dL Free T3 pg/mL 3.6 (2.8-5.3) pg/ml Urine Color Urine Appearance (Clear) Urine pH (5.0-8.0) Ur Specific Superior (1.001-1.035) Urine Protein (Negative) Urine Glucose (UA) (Negative) Urine Ketones (Negative) Urine Blood (Negative) Urine Nitrite (Negative) Urine Bilirubin (Negative) Urine Urobilinogen (<2.0) mg/dL Ur Leukocyte Esterase (Negative) Urine RBC (0-5) /hpf Urine WBC (0-5) /hpf Ur Squamous Epith Cells (0-4) /hpf Urine Bacteria (None) /hpf Urine Mucus (None) /hpf Disposition Clinical Impression: Leg weakness Disposition: ADMITTED IP TO THIS HOSP Is patient prescribed a controlled substance at d/c from ED?: No Referrals: Melina Santa MD [Primary Care Provider] - 1-2 days Time of Disposition: 15:29
[2022-11-20 12:16] LABS: Basophils % (A) 0 %; Eosinophils # (A) 0.4 k/uL (0-0.7); Eosinophils % (A) 13 %; HCT 32.6 % (34.0-46.0); HGB 11.1 gm/dL (11.4-16.0); Lymphocytes # (A) 0.9 k/uL (1.0-4.8); Lymphocytes % (A) 30 %; Macrocytosis Moderate; Mean Platelet Volume 8.8; Monocytes # (A) 0.1 k/uL (0-1.0); Monocytes % (A) 3 %; Neutrophils # (A) 1.5 k/uL (1.3-7.7); Neutrophils % (A) 54 %; Platelet Count 109 k/uL (150-450); Poikilocytosis Slight; RBC 3.08 m/uL (3.80-5.40); RDW 14.3 % (11.5-15.5); WBC 2.9 k/uL (3.8-10.6)
--- NOTE | 2022-11-20 12:20 | XR ---
EXAMINATION TYPE: XR chest 2V DATE OF EXAM: 11/20/2022 12:12 PM COMPARISON: Chest radiographs from 05/01/2021 TECHNIQUE: XR chest 2V Frontal and lateral views of the chest. CLINICAL INDICATION:Female, 67 years old with history of Weakness; FINDINGS: Lungs/Pleura: There is no evidence of pleural effusion, focal consolidation, or pneumothorax. Pulmonary vascularity: Unremarkable. Heart/mediastinum: Cardiomediastinal silhouette is unremarkable. Musculoskeletal: No acute osseous pathology. IMPRESSION: No acute cardiopulmonary disease/process.
[2022-11-20 12:30] LABS: Partial Thromboplastin Time 23.1 sec (22.0-30.0); Prothrombin Time 10.6 sec (9.0-12.0)
[2022-11-20 12:39] LABS: ALT 16 U/L (4-34); AST 19 U/L (14-36); African American GFR (CKD) >90 (>60 ml/min/1.73 sqM); Albumin 4.5 g/dL (3.5-5.0); Alkaline Phosphatase 55 U/L (38-126); Anion Gap 8 mmol/L; Blood Urea Nitrogen 13 mg/dL (7-17); Calcium 9.2 mg/dL (8.4-10.2); Carbon Dioxide 28 mmol/L (22-30); Chloride 101 mmol/L (98-107); Glucose 101 mg/dL (74-99); Magnesium 2.4 mg/dL (1.6-2.3); Non-African American GFR(CKD) >90 (>60 ml/min/1.73 sqM); Phosphorus 3.6 mg/dL (2.5-4.5); Potassium 3.8 mmol/L (3.5-5.1); Sodium 137 mmol/L (137-145); Total Bilirubin 0.7 mg/dL (0.2-1.3); Total Protein 7.1 g/dL (6.3-8.2)
--- NOTE | 2022-11-20 12:49 | CT ---
EXAMINATION TYPE: CT brain wo con DATE OF EXAM: 11/20/2022 COMPARISON: 08/25/2020 INDICATION: weakness DLP: 1098.4 mGycm, Automated exposure control for dose reduction was used. CONTRAST: None CT of the brain is performed utilizing 3 mm thick sections through the posterior fossa and 3 mm thick sections through the remaining calvarium. Study is performed within 24 hours of arrival to the hosp ital. No abnormal hyperdensity is present to suggest an acute intracranial hemorrhage. No mass lesion is evident. No acute infarcts are evident. There is mild periventricular white matter hypodensity, likely on the basis of chronic white matter ischemic changes. Ventricles and sulci are appropriate for the patient age. Paranasal sinuses and mastoid air cells within the [id number] are clear. IMPRESSIONS: 1. Chronic appearing white matter changes. 2. No acute intracranial process. Follow-up MRI can be performed as clinically indicated
[2022-11-20 12:55] LABS: T4, Free (Free Thyroxine) 1.34 ng/dL (0.78-2.19)
[2022-11-20] MEDS: SODIUM CHLORIDE 0.9% 1,000 ML IV SCH (12:55)
[2022-11-20 14:34] LABS: Appearance,Urine Cloudy (Clear); Bacteria,Urine Rare /hpf; Bilirubin,Urine Negative (Negative); Blood,Urine Moderate (Negative); Color,Urine Light Yellow; Glucose,Urine (UA) Negative (Negative); Ketones,Urine 2+ (Negative); Leukocyte Esterase,Urine Negative (Negative); Mucus,Urine Rare /hpf; Nitrite,Urine Negative (Negative); Protein,Urine Negative (Negative); RBC,Urine 15 /hpf (0-5); Squamous Epithelial Cell,Urine 1 /hpf (0-4); Urobilinogen,Urine <2.0 mg/dL (<2.0); WBC,Urine 4 /hpf (0-5)
[2022-11-20] MEDS ORDERED: NALOXONE 0.4 MG/ML 1 ML VIAL IV PRN (15:29)
[2022-11-20] MEDS: METOPROLOL SUCCINATE (ER) 25 MG TAB.ER.24H PO SCH ×2 (17:07→21:49)
[2022-11-20] MEDS ORDERED: ASPIRIN 81 MG PO STA (17:20)
[2022-11-20] MEDS: PRIMIDONE 50 MG TAB PO SCH (21:51)
[2022-11-20] MEDS: FAMOTIDINE 20 MG/2 ML VIAL IV SCH (21:52)
[2022-11-20] MEDS: HEPARIN SODIUM,PORCINE/PF 5,000 UNIT/0.5 ML SYRINGE SQ SCH ×2 (21:53→21:58)
[2022-11-20] MEDS: TIMOLOL 0.5% OPHTH DROPS 5 ML BTL RIGHT EYE SCH (22:09)
[2022-11-20] MEDS: BRIMONIDINE TARTRATE 0.2% DROPS 5 ML BTL RIGHT EYE SCH (22:09)
[2022-11-20] MEDS: NON FORMULARY DRUG (Netarsudil Mesylat/Latanoprost [Rocklatan 0.02%-0.005% Eye Drp] 2.5 ML BOTH EYES SCH (22:27)
[2022-11-21] MEDS: SODIUM CHLORIDE 0.9% 1,000 ML IV SCH ×2 (02:12→21:06)
--- NOTE | 2022-11-21 02:17 | P.HPIM ---
History of Present Illness This is a pleasant 67 years old female with past medical history of Hypertension,anemia, essential tremors, hiatal hernia. 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 Patient says that her legs were sluggish over the last week or little more, this morning she could not walk when she stands up although she says she couldn't move them better when she lies down. Patient denies trauma, denies back pain, No chest pain or dyspnea. No GI or urinary complaints. Also patient denies headache or dizziness, no weakness or numbness in the upper extremities. No tingling in the lower extremities except chronic numbness in her toes. No urine or bowel incontinence no blurred vision or double vision or slurred speech. Patient denies smoking alcohol or illicit drugs. She has history of MDS and she follows up with Dr. Carreon. She follow up with Dr. Schulz who diagnosed her with essential tremor 4 years ago. Vitals are stable WBCs 2.9, hemoglobin 11.1. Platelet count 109 BMP and liver enzymes were unremarkable. Troponin is mildly elevated 0.06. TSH is normal at 0.8. Free T4 is normal. Urine analysis showing moderate blood among [address] of the brain: Chronic appearing white matter changes no acute intracranial process. EKG showing atrial fibrillation at a rate of [address]-T changes Patient started on normal saline at 75 mL/h Review of Systems Review of systems CONSTITUTIONAL: No fever, no malaise, no fatigue. HEENT: No recent visual problems or hearing problems. Denied any sore throat. CARDIOVASCULAR: No orthopnea, PND, no palpitations, no syncope. PULMONARY: No shortness of breath, no cough, no hemoptysis. GASTROINTESTINAL: No diarrhea, no nausea, no vomiting, no abdominal pain. Normoactive bowel sounds. NEUROLOGICAL: No headaches, no weakness, no numbness. HEMATOLOGICAL: Denies any bleeding or petechiae. GENITOURINARY: Denies any burning micturition, frequency, or urgency. MUSCULOSKELETAL/RHEUMATOLOGICAL: Denies any joint pain, swelling, or any muscle pain. ENDOCRINE: Denies any polyuria or polydipsia. Past Medical History Past Medical History: Hypertension Additional Past Medical History / Comment(s): anemia, essential tremors, hiatal hernia. 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 Bone Marrow BX october 2020 Past Anesthesia/Blood Transfusion Reactions: No Reported Reaction Past Psychological History: No Psychological Hx Reported Smoking Status: Never smoker Past Alcohol Use History: None Reported Past Drug Use History: None Reported - Past Family History Mother Family Medical History: No Reported History Brother(s) Family Medical History: Cancer Additional Family Medical History / Comment(s): nonHodgkin's Lymphoma Medications and Allergies Home Medications Medication Instructions Recorded Confirmed Type lisinopriL [Zestril] 10 mg PO DAILY 06/07/18 11/20/22 History Primidone [Mysoline] 50 mg PO TID 08/25/20 11/20/22 History Ascorbic Acid [Vitamin C] 1,000 mg PO DAILY 11/20/22 11/20/22 History Brimonidine Tartrate/Timolol 1 drop RIGHT EYE BID 11/20/22 11/20/22 History [Brimonidine-Timolol 0.2%-0.5%] Cholecalciferol [Vitamin D3 (25 25 mcg PO DAILY 11/20/22 11/20/22 History Mcg = 1000 Iu)] Netarsudil Mesylat/Latanoprost 1 drop BOTH EYES HS 11/20/22 11/20/22 History [Rocklatan 0.02%-0.005% Eye Drp] Vitamin B Complex 1 cap PO DAILY 11/20/22 11/20/22 History Allergies Allergy/AdvReac Type Severity Reaction Status Date / Time No Known Allergies Allergy Verified 11/20/22 13:46 Physical Exam Vitals: Vital Signs Temp Pulse Resp BP Pulse Ox 11/20/22 13:18 98.2 F 93 20 130/81 97 11/20/22 10:13 81 18 118/91 100 Intake and Output 11/19/22 11/20/22 11/20/22 22:59 06:59 14:59 Other: Weight 57.606 kg GENERAL: The patient is alert and oriented x3, not in any acute distress. Well developed, well nourished. HEENT: Pupils are round and equally reacting to light. EOMI. No scleral icterus. No conjunctival pallor. Normocephalic, atraumatic. No pharyngeal erythema. No thyromegaly. CARDIOVASCULAR: S1 and S2 present. No murmurs, rubs, or gallops. PULMONARY: Chest is clear to auscultation, no wheezing , no crackles. ABDOMEN: Soft, nontender, nondistended, normoactive bowel sounds. No palpable organomegaly. MUSCULOSKELETAL: No joint swelling or deformity. EXTREMITIES: No cyanosis, clubbing, or pedal edema. -NEUROLOGICAL: Gross neurological examination did not reveal any focal deficits. Bilateral upper extremity tremor, Cook we'll tremor, increase vascular tone. Symmetrical motor exam SKIN: No rashes. no petechiae. Results CBC & Chem 7: 11/20/22 11:59 11/20/22 11:59 Labs: Abnormal Lab Results - Last 24 Hours (Table) 11/20/22 11/20/22 11/20/22 Range/Units 11:59 11:59 11:59 WBC 2.9 L (3.8-10.6) k/uL RBC 3.08 L (3.80-5.40) m/uL Hgb 11.1 L (11.4-16.0) gm/dL Hct 32.6 L (34.0-46.0) % MCV 106.0 H (80.0-100.0) fL MCH 36.0 H (25.0-35.0) pg Plt Count 109 L (150-450) k/uL Lymphocytes # 0.9 L (1.0-4.8) k/uL Glucose 101 H (74-99) mg/dL Magnesium 2.4 H (1.6-2.3) mg/dL Troponin I (0.000-0.034) ng/mL Urine Appearance Cloudy H (Clear) Urine Ketones 2+ H (Negative) Urine Blood Moderate H (Negative) Urine RBC 15 H (0-5) /hpf Urine Bacteria Rare H (None) /hpf Urine Mucus Rare H (None) /hpf 11/20/22 Range/Units 11:59 WBC (3.8-10.6) k/uL RBC (3.80-5.40) m/uL Hgb (11.4-16.0) gm/dL Hct (34.0-46.0) % MCV (80.0-100.0) fL MCH (25.0-35.0) pg Plt Count (150-450) k/uL Lymphocytes # (1.0-4.8) k/uL Glucose (74-99) mg/dL Magnesium (1.6-2.3) mg/dL Troponin I 0.061 H* (0.000-0.034) ng/mL Urine Appearance (Clear) Urine Ketones (Negative) Urine Blood (Negative) Urine RBC (0-5) /hpf Urine Bacteria (None) /hpf Urine Mucus (None) /hpf Assessment and Plan Assessment: Bilateral lower extremity weakness, slowly progressive over one week. Bilateral upper extremity tremor, suspect resting tremor and suspect Parkinson disease which may be contributing to her bilateral lower extremity weakness. Macroscopic anemia History of MDS, with mild pancytopenia History of hiatal hernia Hypertension History of anemia History of essential tremor Plan: Continue with neuro check Neurology consult Cardiology consult for A. fib Labs and medication were reviewed.. Continue same treatment. Continue with symptomatic treatment. Resume home medication. Monitor labs and vitals. DVT and GI prophylaxis. Further recommendations as per clinical course of the patient DVT prophylaxis: Subcutaneous heparin GI Prophylaxis: Pepcid PT/OT: Pending Prognosis is guarded
[2022-11-21 07:05] LABS: Basophils % (A) 0 %; Eosinophils # (A) 0.3 k/uL (0-0.7); Eosinophils % (A) 10 %; HCT 29.4 % (34.0-46.0); HGB 9.8 gm/dL (11.4-16.0); Lymphocytes # (A) 0.8 k/uL (1.0-4.8); Lymphocytes % (A) 31 %; MCH 35.6 pg (25.0-35.0); MCHC 33.2 g/dL (31.0-37.0); MCV 107.2 fL (80.0-100.0); Macrocytosis Moderate; Mean Platelet Volume 8.7; Monocytes # (A) 0.1 k/uL (0-1.0); Monocytes % (A) 4 %; Neutrophils # (A) 1.5 k/uL (1.3-7.7); Neutrophils % (A) 55 %; RBC 2.74 m/uL (3.80-5.40); WBC 2.7 k/uL (3.8-10.6)
[2022-11-21 07:25] LABS: African American GFR (CKD) >90 (>60 ml/min/1.73 sqM); Anion Gap 5 mmol/L; Blood Urea Nitrogen 12 mg/dL (7-17); Calcium 8.7 mg/dL (8.4-10.2); Carbon Dioxide 26 mmol/L (22-30); Chloride 105 mmol/L (98-107); Glucose 88 mg/dL (74-99); Magnesium 2.3 mg/dL (1.6-2.3); Non-African American GFR(CKD) >90 (>60 ml/min/1.73 sqM); Potassium 3.9 mmol/L (3.5-5.1); Sodium 136 mmol/L (137-145)
[2022-11-21 07:47] LABS: Platelet Count 95 k/uL (150-450)
[2022-11-21] MEDS: FAMOTIDINE 20 MG/2 ML VIAL IV SCH ×2 (08:16→21:11)
[2022-11-21] MEDS: PRIMIDONE 50 MG TAB PO SCH (08:17)
[2022-11-21] MEDS: ASCORBIC ACID 500 MG TAB PO SCH (08:17)
[2022-11-21] MEDS: METOPROLOL SUCCINATE (ER) 25 MG TAB.ER.24H PO SCH ×2 (08:17→21:11)
[2022-11-21] MEDS: CHOLECALCIFEROL 25 MCG (1000 IU) TABLET PO SCH (08:18)
[2022-11-21] MEDS: lisinopriL 10 MG TAB PO SCH (08:18)
[2022-11-21] MEDS: HEPARIN SODIUM,PORCINE/PF 5,000 UNIT/0.5 ML SYRINGE SQ SCH (08:19)
[2022-11-21] MEDS: BRIMONIDINE TARTRATE 0.2% DROPS 5 ML BTL RIGHT EYE SCH ×2 (08:22→21:17)
[2022-11-21] MEDS: TIMOLOL 0.5% OPHTH DROPS 5 ML BTL RIGHT EYE SCH ×2 (08:23→21:18)
--- NOTE | 2022-11-21 09:01 | CONS ---
CONSULTATION CHIEF COMPLAINT: Cardiac arrhythmia. HISTORY OF PRESENT ILLNESS: This is a 67-year-old lady with history of tremors, hypertension who presented to hospital complaining of bilateral lower extremity weakness. Because of her tremors on the monitor, it appeared as if she was having cardiac arrhythmia due to which Cardiology was consulted. The patient denies chest pain, difficulty in breathing, palpitations, dizziness or syncope. Her troponin also came back elevated at 0.06. I evaluated the patient in the emergency room and what appeared like an SVT was really related to tremor artifact. The troponin elevation is of unclear clinical significance. PAST MEDICAL HISTORY: Significant for hypertension and movement disorder. MEDICATIONS: Include Zestril 10 mg daily, primidone 50 mg t.i.d., vitamin D, D3 and vitamin C. ALLERGIES: There are no known drug allergies. FAMILY HISTORY: Negative for premature coronary artery disease. SOCIAL HISTORY: Negative for smoking issues or drug abuse. REVIEW OF SYSTEMS: HEENT: Unremarkable. CARDIAC: As described above. RESPIRATORY: As described above. GI: Negative. GENITOURINARY: Negative. ALLERGY/IMMUNOLOGY: Negative. SKIN: Negative. MUSCULOSKELETAL: Significant for arthritis. PSYCHOSOCIAL: Negative. DERM: Negative. CONSTITUTIONAL: Negative. ONCOLOGICAL: Negative. 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 Rest of the system review is not relevant. PHYSICAL EXAMINATION: GENERAL: The patient is comfortable at rest. VITAL SIGNS: Stable. NECK: There is no jugular venous distention. CHEST: Reveals diminished air entry at the bases. HEART: Reveals first and second heart sounds. A systolic murmur at the apex. ABDOMEN: Soft, nontender. EXTREMITIES: Exam of extremities did not reveal any edema. Peripheral pulses are felt. LABORATORY DATA: Labs show that the hemoglobin is 9.8. Troponin is 0.06 and 0.06. TSH is normal. ASSESSMENT: Troponin elevation of unclear clinical significance. Cardiac arrhythmia secondary to it is an EKG artifact. PLAN: I will obtain a 2D echo on her. MMODL / IJN: [id number] /
--- NOTE | 2022-11-21 09:31 | PN ---
PROGRESS NOTE SUBJECTIVE: The patient appears comfortable this morning. Does not have any new cardiac symptoms and does not wish to take heparin. I am going to obtain a 2D echo on her to evaluate LV function and wall motion. She denies chest pain or difficulty in breathing. PHYSICAL EXAMINATION: GENERAL: On exam, she appears comfortable at rest. VITAL SIGNS: Stable. NECK: There is no jugular venous distention. CHEST: Exam reveals good air entry bilaterally. HEART: Exam reveals first and second heart sounds. A systolic murmur at the apex. ABDOMEN: Soft. EXTREMITIES: Exam of extremities did not reveal any edema. Peripheral pulses are felt. LABORATORY DATA: Labs showed that the hemoglobin is 9.8, platelet count is 95. Potassium is 3.9, creatinine is 0.59. Troponins are slightly elevated at 0.06 and 0.06. ASSESSMENT AND PLAN: 1. Cardiac arrhythmia is an EKG artifact. 2. Anemia. 3. Tremor. 4. Weakness. 5. Elevated troponins of unclear clinical significance. PLAN: I will continue the Toprol-XL, Zestril that she is on along with an aspirin 81 mg daily. Will follow echo results. MMODL / IJN: [id number] /
[2022-11-21] MEDS: CARBIDOPA-LEVODOPA 25-100 MG 1 EACH TAB PO SCH ×3 (10:07→21:12)
--- NOTE | 2022-11-21 11:02 | CT ---
EXAMINATION TYPE: CT thor lumbar spine wo con CT DLP: 1059.6 mGycm, Automated exposure control for dose reduction was used. DATE OF EXAM: 11/21/2022 10:01 AM CLINICAL INDICATION:Female, 67 years old with history of leg weakness; Leg weakness COMPARISON: 09/01/2020 CT. TECHNIQUE: Axial images of the thoracic and lumbar spine were obtained without contrast. Coronal and sagittal reformats were performed. CT Contrast: Contrast used: none. Oral contrast used: none. FINDINGS: Alignment is within normal limits. There is scattered osteophyte formation disc space narrowing and f acet joint arthropathy. T7 anterior sclerotic focus favored represent a bone island. There is no evid ence of fracture. Visualized portions of the neural foramen are patent bilaterally. This no CT eviden ce for significant spinal canal stenosis. There is disc bulge at L3-L4 and L4-L5 with mild spinal can al stenosis. Atherosclerosis of the arterial vasculature. IMPRESSION: 1. No evidence for significant spinal canal or neural foraminal stenosis. 2. No evidence of fracture.
--- NOTE | 2022-11-21 11:14 | CA ---
Transthoracic Echo Report Name: Violeta Andrews Age: 67 Gender: F : 1955 Exam Date: 11/21/2022 09:02 Exam Location: [facility] Ht (in): 65 Wt (lb): 127 Ordering Physician: Wilfredo Jimenez MD ([id number]) Attending/Referring Phys: Tony VILLELA Internal Controls Analyst Ramirez Yadav Procedure CPT: Indications: svt Cardiac Hx: Technical Quality: Ramirez Yadav Contrast 1: Total Dose (mL): Contrast 2: Total Dose (mL): MEASUREMENTS (Male / Female) Normal Values 2D ECHO LV Diastolic Diameter PLAX 4.1 cm 4.2 - 5.9 / 3.9 - 5.3 cm LV Systolic Diameter PLAX 2.8 cm IVS Diastolic Thickness 0.7 cm 0.6 - 1.0 / 0.6 - 0.9 cm LVPW Diastolic Thickness 0.8 cm 0.6 - 1.0 / 0.6 - 0.9 cm LV Relative Wall Thickness 0.4 RV Internal Dim ED PLAX 2.8 cm LVOT Diameter 2.0 cm Aortic Root Diameter 3.3 cm LA Systolic Diameter LX 1.2 cm 3.0 - 4.0 / 2.7 - 3.8 cm LV Diastolic Volume MOD BP 35.7 cm??? 67 - 155 / 56 - 104 cm??? LV Systolic Volume MOD BP 13.8 cm??? 22 - 58 / 19 - 49 cm??? LV Ejection Fraction MOD BP 61.4 % >= 55 % LV Cardiac Index MOD BP 944.8 cm???/min???m??? LV Diastolic Volume MOD 4C 39.1 cm??? LV Systolic Volume MOD 4C 13.7 cm??? LV Ejection Fraction MOD 4C 64.9 % LV Cardiac Index MOD 4C 1093.0 cm???/min???m??? LV Diastolic Length 4C 6.8 cm LV Systolic Length 4C 5.8 cm LV Diastolic Volume MOD 2C 28.8 cm??? LV Systolic Volume MOD 2C 12.2 cm??? LV Ejection Fraction MOD 2C 57.6 % LV Cardiac Index MOD 2C 714.2 cm???/min???m??? LV Diastolic Length 2C 5.8 cm LV Systolic Length 2C 5.0 cm LA Volume 39.7 cm??? 18 - 58 / 22 - 52 cm??? DOPPLER AV Peak Velocity 121.9 cm/s AV Peak Gradient 5.9 mmHg LVOT Peak Velocity 111.2 cm/s LVOT Peak Gradient 4.9 mmHg AV Area Cont Eq pk 2.8 cm??? MV Peak Velocity 94.5 cm/s MV Peak Gradient 3.6 mmHg MV Mean Velocity 55.9 cm/s MV Mean Gradient 1.4 mmHg MV Velocity Time Integral 37.9 cm MR Peak Velocity 310.7 cm/s MR Peak Gradient 38.6 mmHg Mitral E Point Velocity 86.9 cm/s Mitral A Point Velocity 90.7 cm/s Mitral E to A Ratio 1.0 MV Deceleration Time 146.4 ms MV E' Velocity 11.0 cm/s Mitral E to MV E' Ratio 7.9 TR Peak Velocity 238.5 cm/s TR Peak Gradient 22.7 mmHg Right Ventricular Systolic Press 27.8 mmHg PV Peak Velocity 96.1 cm/s PV Peak Gradient 3.7 mmHg FINDINGS Left Ventricle Nrmal LV size and wall thickness. Left ventricular ejection fraction is estimated at 55-60 %.normal left ventricular wall motion. Normal left ventricular diastolic filling pattern. Right Ventricle Normal right ventricular size. RVSP= 29mmhg. Right Atrium Normal right atrial size. Left Atrium Normal left atrial size. Mitral Valve Mild MVP and thickening. Mild MR. Aortic Valve Aortic valve not well visualized. Grossly normal.no aortic valve stenosis or regurgitation. Tricuspid Valve Structurally normal tricuspid valve. Mild TR. Pulmonic Valve Pulmonic valve not well visualized. No pulmonic regurgitation. Pericardium Normal pericardium. Aorta Ao root adrian= 3.3cm CONCLUSIONS 1. Normal left ventricle size and systolic function 2. Thickened mitral valve with mild prolapse and mild mitral regurgitation 3. Mild tricuspid regurgitation with no evidence of pulmonary hypertension Previewed by: Dr. Raymond Ann MD (Electronically Signed) Final Date: 21 November 2022 11:13
--- NOTE | 2022-11-21 11:55 | P.CNNES ---
History of Present Illness Consult date: 11/21/22 Requesting physician: Jeffrey Tidwell Reason for Consult: leg weakness History of Present Illness: This is a 67-year-old woman who presented because of difficulty walking over the past 2 week. Patient stated that she's been having difficulty walking for the last 2 weeks and has progressively getting worse. She denies of any lower back pain, urinary bowel incontinence. She denies of any neck pain. Denies of any focal weakness. She stated that she has history of underlying essential tremor that was diagnosed by her neurologist (Dr. Schulz) according to the patient. She states that she has tremor over bilateral upper extremity but mostly right upper and that's at rest. Denies of any difficulty getting her words out, speech difficulty. Denies any recent trauma. She denies of any falls. She resides with her . She has history of myelodysplastic syndrome with bone biopsy in October 2020 Some of her workup during his hospital visit consisted of: White blood cells 2.9 thousand, hemoglobin is 11.1 repeated is 9.8 and the platelet is 109,000. Troponin was as high as 0.063 TSH as a 0.815 and the free T4 is 1.34 Otherwise calcium, sodium, HDL 30 BUN and creatinine are within normal limits. CT of the head is reported as chronic-appearing white matter changes. No acute cranial process. Follow-up MRI can be performed as clinically indicated. Review of Systems 10 point system is reviewed and the pertinent positive and negative as per HPI. Past Medical History Past Medical History: Hypertension Additional Past Medical History / Comment(s): anemia, essential tremors, hiatal hernia. 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 Bone Marrow BX october 2020 Past Anesthesia/Blood Transfusion Reactions: No Reported Reaction Past Psychological History: No Psychological Hx Reported Smoking Status: Never smoker Past Alcohol Use History: None Reported Past Drug Use History: None Reported - Past Family History Mother Family Medical History: No Reported History Brother(s) Family Medical History: Cancer Additional Family Medical History / Comment(s): nonHodgkin's Lymphoma Medications and Allergies Home Medications Medication Instructions Recorded Confirmed Type lisinopriL [Zestril] 10 mg PO DAILY 06/07/18 11/20/22 History Primidone [Mysoline] 50 mg PO TID 08/25/20 11/20/22 History Ascorbic Acid [Vitamin C] 1,000 mg PO DAILY 11/20/22 11/20/22 History Brimonidine Tartrate/Timolol 1 drop RIGHT EYE BID 11/20/22 11/20/22 History [Brimonidine-Timolol 0.2%-0.5%] Cholecalciferol [Vitamin D3 (25 25 mcg PO DAILY 11/20/22 11/20/22 History Mcg = 1000 Iu)] Netarsudil Mesylat/Latanoprost 1 drop BOTH EYES HS 11/20/22 11/20/22 History [Rocklatan 0.02%-0.005% Eye Drp] Vitamin B Complex 1 cap PO DAILY 11/20/22 11/20/22 History Allergies Allergy/AdvReac Type Severity Reaction Status Date / Time No Known Allergies Allergy Verified 11/20/22 13:46 Physical Examination - Vital Signs Vital Signs: Vital Signs Temp Pulse Resp BP Pulse Ox 11/21/22 07:56 98 F 82 16 118/87 94 L 11/21/22 05:04 98.2 F 80 16 133/72 93 L 11/21/22 03:00 50 L 12 130/80 11/21/22 02:00 57 L 13 130/80 11/21/22 00:00 90 15 130/80 11/20/22 22:00 87 16 136/78 11/20/22 21:00 80 14 129/78 11/20/22 20:12 88 16 129/78 97 11/20/22 19:00 19 117/82 98 11/20/22 18:00 109 H 18 124/85 11/20/22 17:00 97 24 126/64 97 11/20/22 16:00 92 20 127/71 11/20/22 15:00 19 129/73 98 11/20/22 14:00 76 18 130/81 100 11/20/22 13:18 98.2 F 93 20 130/81 97 11/20/22 13:00 21 98 11/20/22 12:00 22 128/82 96 11/20/22 11:00 118/91 99 11/20/22 10:16 97 11/20/22 10:13 81 18 118/91 100 GENERAL: The patient is lying in bed and is not in acute distress. NEUROLOGICAL: Higher mental function: The patient is awake, alert, oriented to self, place and time. Patient is following commands. No aphasia and no neglect. Cranial nerves: The pupils are round, equal and reactive to light and accommodation. Visual bolton are full to confrontation throughout. Extraocular movement is intact no nystagmus is noted. Facial sensation is normal to touch throughout. The facial strength is normal throughout. Hearing is normal bilaterally to hand rub. Tongue is midline and moved [id number] without any difficulty. No dysarthria is noted. Shoulder shrug is normal bilaterally. Motor: The strength is 5 over 5 throughout uppers. Is able to raises lowers above gravity and no appreciable focality. I felt strength was 4+ to 5-. Has resting tremors predominately right upper >left. Has increase tone of the right wrist and some in elbow. Normal bulk. Cerebellum: Normal finger to nose heel to paulson bilaterally. Sensation: Sensation is normal to touch throughout. Reflexes (right/left): 2+ throughout while lowers are 1+. Plantars are mute bilaterally. Results - Laboratory Findings CBC and BMP: 11/21/22 06:28 11/21/22 06:28 Abnormal Lab Findings: Abnormal Labs 11/20/22 11/20/22 11/20/22 11:59 11:59 11:59 WBC 2.9 L RBC 3.08 L Hgb 11.1 L Hct 32.6 L MCV 106.0 H MCH 36.0 H Plt Count 109 L Lymphocytes # 0.9 L Sodium Glucose 101 H Magnesium 2.4 H Troponin I Urine Appearance Cloudy H Urine Ketones 2+ H Urine Blood Moderate H Urine RBC 15 H Urine Bacteria Rare H Urine Mucus Rare H 11/20/22 11/20/22 11/21/22 11:59 19:02 06:28 WBC 2.7 L RBC 2.74 L Hgb 9.8 L Hct 29.4 L MCV 107.2 H MCH 35.6 H Plt Count 95 L Lymphocytes # 0.8 L Sodium Glucose Magnesium Troponin I 0.061 H* 0.063 H* Urine Appearance Urine Ketones Urine Blood Urine RBC Urine Bacteria Urine Mucus 11/21/22 06:28 WBC RBC Hgb Hct MCV MCH Plt Count Lymphocytes # Sodium 136 L Glucose Magnesium Troponin I Urine Appearance Urine Ketones Urine Blood Urine RBC Urine Bacteria Urine Mucus Assessment and Plan Assessment: This is a 67-year-old woman who is been having difficulty walking for the last 2 weeks progressively getting worse. She states she has history of essential tremor diagnosed by her neurologist. On examination she had resting tremor of right upper extremity more than the left as well as increased tone over the right upper extremity. Patient denies off any neck pain or lower back pain. Gait difficulty for the past two weeks with resting tremor of the right upper extremity Seems probable Parkinson's disease. History of reported essential tremor by her outside neurologist but I feel more Parkinson's (tremor of the right upper extremity at rest with increase tone) History of myelodyspastic syndrome with bone biopsy october 2020 History of hypertension Plan: I ordered CT thoraco-lumbar spine. Ordered MRI Brain. I ordered Vitamin B12. I started her on Sinemet 25-100 1 tab tid. I stopped her home dose of Primidone. PT/OT are consulted Will defer the rest of management to primary team. The plan is discussed with patient, primary attending and her nurse. Thank you for consultation. Time with Patient: Greater than 30
--- NOTE | 2022-11-21 14:37 | P.PN ---
Subjective Progress Note Date: 11/21/22 67 years old female with past medical history of Hypertension,anemia, essential tremors, hiatal hernia. 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 WBCs 2.9, hemoglobin 11.1. Platelet count 109 BMP and liver enzymes were unremarkable. Troponin is mildly elevated 0.06. TSH is normal at 0.8. Free T4 is normal. Urine analysis showing moderate blood among [address] of the brain: Chronic appearing white matter changes no acute intracranial process. EKG showing atrial fibrillation at a rate of [address]-T changes 11/21 : Patient continued to complain of lower extremity weakness. Per discussion with neurology likely etiology would be Parkinson's, CT thoracic and lumbar spine negative for acute etiology Objective - Vital Signs Vital signs: Vital Signs Temp 98.0 F 11/21/22 14:15 Pulse 71 11/21/22 14:15 Resp 17 11/21/22 14:15 BP 120/76 11/21/22 14:15 Pulse Ox 98 11/21/22 14:15 FiO2 Intake & Output 11/20/22 11/21/22 11/21/22 18:59 06:59 18:59 Weight 57.606 kg - Exam PHYSICAL EXAMINATION: GENERAL: The patient is alert and oriented x3, underwent HEENT: Pupils are round and equally reacting to light. EOMI. No scleral icterus. No conjunctival pallor. Normocephalic, atraumatic. No pharyngeal erythema. No thyromegaly. CARDIOVASCULAR: S1 and S2 present. No murmurs, rubs, or gallops. PULMONARY: Chest is clear to auscultation, no wheezing or crackles. ABDOMEN: Soft, nontender, nondistended, normoactive bowel sounds. No palpable organomegaly. MUSCULOSKELETAL: No joint swelling or deformity. EXTREMITIES: No cyanosis, clubbing, or pedal edema. NEUROLOGICAL: Generalized tremors noted, bilateral lower extremity weakness motor strength is about 3 x 5 bilateral lower extremity, upper extremity strength is about 4 x 5 - Labs CBC & Chem 7: 11/21/22 06:28 11/21/22 06:28 Labs: Abnormal Lab Results - Last 24 Hours (Table) 11/20/22 11/20/22 11/21/22 Range/Units 11:59 19:02 06:28 WBC 2.7 L (3.8-10.6) k/uL RBC 2.74 L (3.80-5.40) m/uL Hgb 9.8 L (11.4-16.0) gm/dL Hct 29.4 L (34.0-46.0) % MCV 107.2 H (80.0-100.0) fL MCH 35.6 H (25.0-35.0) pg Plt Count 95 L (150-450) k/uL Lymphocytes # 0.8 L (1.0-4.8) k/uL Sodium (137-145) mmol/L Troponin I 0.063 H* (0.000-0.034) ng/mL Urine Appearance Cloudy H (Clear) Urine Ketones 2+ H (Negative) Urine Blood Moderate H (Negative) Urine RBC 15 H (0-5) /hpf Urine Bacteria Rare H (None) /hpf Urine Mucus Rare H (None) /hpf 11/21/22 Range/Units 06:28 WBC (3.8-10.6) k/uL RBC (3.80-5.40) m/uL Hgb (11.4-16.0) gm/dL Hct (34.0-46.0) % MCV (80.0-100.0) fL MCH (25.0-35.0) pg Plt Count (150-450) k/uL Lymphocytes # (1.0-4.8) k/uL Sodium 136 L (137-145) mmol/L Troponin I (0.000-0.034) ng/mL Urine Appearance (Clear) Urine Ketones (Negative) Urine Blood (Negative) Urine RBC (0-5) /hpf Urine Bacteria (None) /hpf Urine Mucus (None) /hpf Assessment and Plan Plan: Bilateral lower extremity weakness with essential tremor suspect acute Macroscopic anemia Elevated troponin History of MDS, with mild pancytopenia History of hiatal hernia Hypertension History of anemia History of essential tremor * Consult obtained from cardiology and neurology * CT head negative for acute intracranial process, CT lumbar thoracic spine negative for acute lumbar and thoracic spine stenosis * Will need physical therapy occupational therapy evaluation * EKG reviewed by cardiology artifact, recommend continue current medical management. * Echocardiogram reviewed, preserved ejection fraction minimal valvular heart disease noted
[2022-11-21] MEDS: NON FORMULARY DRUG (Netarsudil Mesylat/Latanoprost [Rocklatan 0.02%-0.005% Eye Drp] 2.5 ML BOTH EYES SCH (21:05)
[2022-11-21] MEDS: HEPARIN SODIUM,PORCINE 5,000 UNIT/ML 1 ML VIAL SQ SCH ×2 (21:11→21:13)
[2022-11-22] MEDS: SODIUM CHLORIDE 0.9% 1,000 ML IV SCH ×3 (05:52→23:31)
[2022-11-22 08:15] LABS: HCT 29.3 % (34.0-46.0); HGB 10.2 gm/dL (11.4-16.0); MCH 36.9 pg (25.0-35.0); MCHC 34.7 g/dL (31.0-37.0); MCV 106.5 fL (80.0-100.0); Macrocytosis Moderate; Mean Platelet Volume 8.7; RBC 2.75 m/uL (3.80-5.40); RDW 14.1 % (11.5-15.5); WBC 2.2 k/uL (3.8-10.6)
[2022-11-22 08:24] LABS: Platelet Count 83 k/uL (150-450)
[2022-11-22 08:39] LABS: African American GFR (CKD) >90 (>60 ml/min/1.73 sqM); Anion Gap 6 mmol/L; Blood Urea Nitrogen 15 mg/dL (7-17); Calcium 8.5 mg/dL (8.4-10.2); Carbon Dioxide 25 mmol/L (22-30); Chloride 108 mmol/L (98-107); Glucose 96 mg/dL (74-99); Non-African American GFR(CKD) >90 (>60 ml/min/1.73 sqM); Potassium 3.8 mmol/L (3.5-5.1); Sodium 139 mmol/L (137-145)
[2022-11-22] MEDS: HEPARIN SODIUM,PORCINE 5,000 UNIT/ML 1 ML VIAL SQ SCH ×2 (09:05→20:35)
[2022-11-22] MEDS: FAMOTIDINE 20 MG/2 ML VIAL IV SCH ×2 (09:10→20:35)
[2022-11-22] MEDS: ASCORBIC ACID 500 MG TAB PO SCH (09:10)
[2022-11-22] MEDS: BRIMONIDINE TARTRATE 0.2% DROPS 5 ML BTL RIGHT EYE SCH ×2 (09:10→20:35)
[2022-11-22] MEDS: TIMOLOL 0.5% OPHTH DROPS 5 ML BTL RIGHT EYE SCH ×2 (09:10→20:36)
[2022-11-22] MEDS: CARBIDOPA-LEVODOPA 25-100 MG 1 EACH TAB PO SCH ×3 (09:11→23:31)
[2022-11-22] MEDS: ASPIRIN 81 MG PO SCH (09:11)
[2022-11-22] MEDS: lisinopriL 10 MG TAB PO SCH (09:11)
[2022-11-22] MEDS: METOPROLOL SUCCINATE (ER) 25 MG TAB.ER.24H PO SCH ×2 (09:11→20:35)
[2022-11-22] MEDS: CHOLECALCIFEROL 25 MCG (1000 IU) TABLET PO SCH (09:11)
[2022-11-22] MEDS: CYANOCOBALAMIN 500 MCG TAB PO SCH (12:09)
--- NOTE | 2022-11-22 12:10 | MR ---
EXAMINATION TYPE: MR brain wo con DATE OF EXAM: 11/22/2022 10:48 AM COMPARISON: 11/20/2022. CLINICAL INDICATION:Female, 67 years old with history of leg weakness with tremor.; PHH, Leg weakness with tremor. TECHNIQUE: Multi planar, multi sequence imaging was performed through the brain including: T1, T2, In version recovery, Diffusion weighted imaging, and gradient echo imaging. No gadolinium was given. FINDINGS: Small focus of restricted diffusion within the right frontal lobe. Series 303 image 176 The gutierrez-white junctions, ventricular system, and cisterns appear unremarkable. Scattered foci of hi gh T2 signal intensity are seen within the periventricular white matter. Midline structures show no a bnormality. The susceptibility weighted images do not reveal any evidence for micro-hemorrhage. The bone marrow signal is within normal limits. Paranasal sinuses and mastoid air cells: No significant paranasal sinus disease. Left parotid gland h igh T2 signal cysts measuring 4 mm. Visualized orbits: Orbital contents are intact. IMPRESSION: 1. Small focus of acute/subacute CVA in the right frontal lobe. 2. Nonspecific white matter changes, likely secondary to small vessel ischemic disease.
--- NOTE | 2022-11-22 13:08 | P.PN ---
Subjective Progress Note Date: 11/22/22 67 years old female with past medical history of Hypertension,anemia, essential tremors, hiatal hernia. 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 WBCs 2.9, hemoglobin 11.1. Platelet count 109 BMP and liver enzymes were unremarkable. Troponin is mildly elevated 0.06. TSH is normal at 0.8. Free T4 is normal. Urine analysis showing moderate blood among [address] of the brain: Chronic appearing white matter changes no acute intracranial process. EKG showing atrial fibrillation at a rate of [address]-T changes 11/21 : Patient continued to complain of lower extremity weakness. Per discussion with neurology likely etiology would be Parkinson's, CT thoracic and lumbar spine negative for acute etiology 11/22 : Patient seen and evaluated bedside. Significant other bedside as well. Lower extremity weakness has improved. MRI brain that showed small focus of acute to subacute infarct in right frontal lobe small vessel ischemic disease noted Objective - Vital Signs Vital signs: Vital Signs Temp 98.1 F 11/22/22 08:00 Pulse 59 L 11/22/22 12:00 Resp 18 11/22/22 12:00 BP 119/72 11/22/22 12:00 Pulse Ox 100 11/22/22 12:00 FiO2 Intake & Output 11/21/22 11/22/22 11/22/22 18:59 06:59 18:59 Intake Total 120 240 Output Total 300 201 Balance -180 -201 240 Weight 57.606 kg Intake: Oral 120 240 Output: Urine 300 201 - Exam PHYSICAL EXAMINATION: GENERAL: The patient is alert and oriented x3, ill appearance HEENT: Pupils are round and equally reacting to light. EOMI. No scleral icterus. No conjunctival pallor. Normocephalic, atraumatic. No pharyngeal erythema. No thyromegaly. CARDIOVASCULAR: S1 and S2 present. No murmurs, rubs, or gallops. PULMONARY: Chest is clear to auscultation, no wheezing or crackles. ABDOMEN: Soft, nontender, nondistended, normoactive bowel sounds. No palpable organomegaly. MUSCULOSKELETAL: No joint swelling or deformity. EXTREMITIES: No cyanosis, clubbing, or pedal edema. NEUROLOGICAL: Generalized tremors noted, bilateral lower extremity weakness motor strength is about 4 x 5 bilateral lower extremity, upper extremity strength is about 4 x 5 - Labs CBC & Chem 7: 11/22/22 07:38 11/22/22 07:38 Labs: Abnormal Lab Results - Last 24 Hours (Table) 11/22/22 11/22/22 Range/Units 07:38 07:38 WBC 2.2 L (3.8-10.6) k/uL RBC 2.75 L (3.80-5.40) m/uL Hgb 10.2 L (11.4-16.0) gm/dL Hct 29.3 L (34.0-46.0) % MCV 106.5 H (80.0-100.0) fL MCH 36.9 H (25.0-35.0) pg Plt Count 83 L (150-450) k/uL Chloride 108 H (98-107) mmol/L Assessment and Plan Plan: Acute to subacute CVA and right frontal lobe Bilateral lower extremity weakness with essential tremor >> Parkinson's disease Macroscopic anemia Elevated troponin type 2 SD History of MDS, with mild pancytopenia History of hiatal hernia Hypertension History of anemia History of essential tremor * Consult obtained from cardiology and neurology * In regards to acute CVA >> CT head negative for acute intracranial process, CT lumbar thoracic spine negative for acute lumbar and thoracic spine stenosis murmur MRI brainoh acute to subacute CVA, echocardiogram shows normal left and to size and function. Continue patient on aspirin and Lipitor * will need physical therapy occupational therapy evaluation * In regards to Parkinson patient started on Sinemet * EKG reviewed by cardiology artifact, recommend continue current medical management. * Echocardiogram reviewed, preserved ejection fraction minimal valvular heart disease noted
--- NOTE | 2022-11-22 13:23 | P.PN ---
Subjective Progress Note Date: 11/22/22 History of present illness: This is a 67-year-old female with history of essential tremors, hypertension p resented to the hospital with bilateral lower extremity weakness. Because of her tremors on the monitor appeared that she was having a cardiac arrhythmia for which cardiology was consulted. Patient denied having any chest pain, shortness of breath, palpitations, dizziness or syncope. Troponin came back elevated at 0.06 of unclear significance. Patient denies having any symptoms today, no chest pain or shortness of breath, no palpitations. Echocardiogram reveals normal LV size and systolic function. Thickened mitral valve with mild prolapse and mild mitral regurgitation. Mild tricuspid regurgitation with no evidence of pulmonary potential Physical examination: Gen: This is a 67-year-old female resting in bed appears to be comfortable and in no acute distress VS: reviewed HEENT: Head is atraumatic, normocephalic. Pupils equal, round. Sclerae is anicteric. NECK: Supple. No JVD. . LUNGS: Clear to auscultation. No wheezes or rhonchi. No intercostal retractions. HEART: Regular rate and rhythm. Systolic murmur at the apex EXTREMITIES: No pedal edema. No calf tenderness. NEUROLOGICAL: Patient is awake, alert and oriented x3. Assessment: Troponin elevation of unclear significance, acute coronary syndrome ruled out Cardiac arrhythmia ruled out as artifact on EKG Plan: Continue patient's current cardiac medications Cardiology will sign off this case and follow on an as-needed basis. Please reconsult for any new concerns. Patient may follow-up in the office in one to 2 weeks. Nurse practitioner note has been reviewed, I agree with documented findings and plan of care. Patient was seen and examined. Objective - Vital Signs Vital signs: Vital Signs Temp 98.1 F 11/22/22 08:00 Pulse 73 11/22/22 08:00 Resp 18 11/22/22 08:00 BP 109/64 11/22/22 08:00 Pulse Ox 98 11/22/22 08:01 FiO2 Intake & Output 11/21/22 11/22/22 11/22/22 18:59 06:59 18:59 Intake Total 120 240 Output Total 300 201 Balance -180 -201 240 Weight 57.606 kg Intake: Oral 120 240 Output: Urine 300 201 - Labs CBC & Chem 7: 11/22/22 07:38 11/22/22 07:38 Labs: Abnormal Lab Results - Last 24 Hours (Table) 11/22/22 11/22/22 Range/Units 07:38 07:38 WBC 2.2 L (3.8-10.6) k/uL RBC 2.75 L (3.80-5.40) m/uL Hgb 10.2 L (11.4-16.0) gm/dL Hct 29.3 L (34.0-46.0) % MCV 106.5 H (80.0-100.0) fL MCH 36.9 H (25.0-35.0) pg Plt Count 83 L (150-450) k/uL Chloride 108 H (98-107) mmol/L
--- NOTE | 2022-11-22 16:07 | P.PN ---
Subjective Progress Note Date: 11/22/22 I'll follow the bussing the patient that. Patient stated that after getting Sinemet she has noticed improvement in her tremor. Per nurse had difficulty walking with therapy team. Patient denies of any new neurological issues. Objective - Vital Signs Vital signs: Vital Signs Temp 98.1 F 11/22/22 08:00 Pulse 59 L 11/22/22 12:00 Resp 18 11/22/22 12:00 BP 119/72 11/22/22 12:00 Pulse Ox 100 11/22/22 12:00 FiO2 Intake & Output 11/21/22 11/22/22 11/22/22 18:59 06:59 18:59 Intake Total 120 360 Output Total 300 201 350 Balance -180 -201 10 Weight 57.606 kg Intake: Oral 120 360 Output: Urine 300 201 350 Other: # Voids 1 - Exam GENERAL: The patient is lying in bed and is not in acute distress. NEUROLOGICAL: Higher mental function: The patient is awake, alert, oriented to self, place and time. Patient is following commands. No aphasia and no neglect. Cranial nerves: The pupils are round, equal and reactive to light and accommodation. Visual bolton are full to confrontation throughout. Extraocular movement is intact no nystagmus is noted. Facial sensation is normal to touch throughout. The facial strength is normal throughout. Hearing is normal bilaterally to hand rub. Tongue is midline and moved [id number] without any difficulty. No dysarthria is noted. Shoulder shrug is normal bilaterally. Motor: The strength is 5 over 5 throughout uppers. Is able to raises lowers above gravity and no appreciable focality. I felt strength was 4+ to 5-. Has resting tremors predominately right upper >left but slightly better today compared to yesterday. Has increase tone of the right wrist and some in elbow. Normal bulk. Cerebellum: Normal finger to nose heel to paulson bilaterally. Sensation: Sensation is normal to touch throughout. Reflexes (right/left): 2+ throughout while lowers are 1+. Plantars are mute bilaterally. Some of her workup during his hospital visit consisted of: White blood cells 2.9 thousand, hemoglobin is 11.1 repeated is 9.8 and the platelet is 109,000. Troponin was as high as 0.063 TSH as a 0.815 and the free T4 is 1.34 Otherwise calcium, sodium, HDL 30 BUN and creatinine are within normal limits. CT of the head is reported as chronic-appearing white matter changes. No acute cranial process. Follow-up MRI can be performed as clinically indicated. CT thoracic and lumbar is reported as no evidence for significant spinal canal or neuroforaminal stenosis. No evidence for fracture. MRI the brain is reported as small focus acute/subacute CVA in the right frontal lobe. Nonspecific white matter changes, likely secondary due to small vessel ischemic disease. I personally reviewed the MRI and I agree with the report. 2-D echo was reported as normal left ventricular size and systolic function. Thickened mitral valve with the prolapse and mitral regurgitation. Mitral tricuspid regurgitation with no evidence of pulmonary hypertension - Labs CBC & Chem 7: 11/22/22 07:38 11/22/22 07:38 Labs: Abnormal Lab Results - Last 24 Hours (Table) 11/22/22 11/22/22 Range/Units 07:38 07:38 WBC 2.2 L (3.8-10.6) k/uL RBC 2.75 L (3.80-5.40) m/uL Hgb 10.2 L (11.4-16.0) gm/dL Hct 29.3 L (34.0-46.0) % MCV 106.5 H (80.0-100.0) fL MCH 36.9 H (25.0-35.0) pg Plt Count 83 L (150-450) k/uL Chloride 108 H (98-107) mmol/L Assessment and Plan Assessment: This is a 67-year-old woman who is been having difficulty walking for the last 2 weeks progressively getting worse. She states she has history of essential tremor diagnosed by her neurologist. On examination she had resting tremor of right upper extremity more than the left as well as increased tone over the right upper extremity. Patient denies off any neck pain or lower back pain. Gait difficulty for the past two weeks with resting tremor of the right upper extremity Seems probable Parkinson's disease. Acute ischemic stroke small focus over the right frontal seen on MRI: No IV tpa since outside window and low NIH is low. Risk of tpa outweigh benefit. History of reported essential tremor by her outside neurologist but I feel more Parkinson's (tremor of the right upper extremity at rest with increase tone) History of myelodyspastic syndrome with bone biopsy october 2020 History of hypertension Plan: I ordered carotid duplex and HbA1c. Lipid panel is ordered by primary team. Because her recent small focus stroke: She was started on ASA 81mg daily by primary and I added Plavix 75mg daily. She is on Lipitor 40 mg daily at bedtime. Continue Sinemet 25-100 1 tab tid and patient feels tremors are improving. I stopped her home dose of Primidone. PT/OT are consulted. Also consulted [facility] [facility]. Will defer the rest of management to primary team. Continue neuro checks On cardiac monitoring We'll defer the rest of medical management to primary team For DVT prophylaxis I started the patient on subcu heparin 5000 units every 12 hours The plan is discussed with patient, primary attending and her nurse. Time with Patient: Less than 30
--- NOTE | 2022-11-22 17:55 | US ---
EXAMINATION TYPE: US carotid duplex BILAT DATE OF EXAM: 11/22/2022 COMPARISON: CLINICAL INDICATION: Female, 67 years old with history of stroke; TECHNIQUE: Carotid duplex ultrasound examination. Indirect Doppler criteria was utilized. FINDINGS: EXAM MEASUREMENTS: RIGHT: Peak Systolic Velocity (PSV) cm/sec ----- Right CCA: 61.4 ----- Right ICA: 76.8 ----- Right ECA: 103.2 ICA/CCA ratio: 1.3 RIGHT: End Diastole cm/sec ----- Right CCA: 13.1 ----- Right ICA: 24.1 ----- Right ECA: 9.5 LEFT: Peak Systolic Velocity (PSV) cm/sec ----- Left CCA: 76.5 ----- Left ICA: 96.3 ----- Left ECA: 109.7 ICA/CCA ratio: 1.3 LEFT: End Diastole cm/sec ----- Left CCA: 20.4 ----- Left ICA: 29.2 ----- Left ECA: 17.6 VERTEBRALS (direction of flow): Right Vertebral: Antegrade Left Vertebral: Antegrade Rhythm: Normal CAUSTIC PURIFICATION OPERATOR NOTES: No significant stenosis, no elevated velocities, or plaque visualized. IMPRESSION: 1. No significant flow-limiting stenosis bilateral carotid bifurcations based on velocities. Criteria for Assigning % of Stenosis / Diameter reduction (Estimation based on the indirect measurements of the internal carotid artery velocities (ICA PSV). 1. Normal (no stenosis)=ICA PSV < 125 cm/s: ratio < 2.0: ICA EDV<40 cm/s. 2. Less than 50% stenosis=ICA PSV < 125 cm/s: ratio < 2.0: ICA EDV<40 cm/s. 3. 50 to 69% stenosis=ICA PSV of 125 to 230 cm/s: ration 2.0 ? 4.0: ICA EDV 40-100 cm/s. 4. Greater than 70% stenosis to near occlusion= ICA PSV > 230 cm/s: ratio > 4.0: ICA EDV > 100 cm/s. 5. Near occlusion= ICA PSV velocities may be low or undetectable: variable ratio and ICA EDV. 6. Total occlusion=unable to detect flow.
[2022-11-22] MEDS: CLOPIDOGREL 75 MG TAB PO SCH (20:34)
[2022-11-22] MEDS: NON FORMULARY DRUG (Netarsudil Mesylat/Latanoprost [Rocklatan 0.02%-0.005% Eye Drp] 2.5 ML BOTH EYES SCH (20:36)
[2022-11-22] MEDS ORDERED: ATORVASTATIN 40 MG TAB PO SCH (21:00)
[2022-11-23 08:22] LABS: HCT 29.7 % (34.0-46.0); HGB 10.4 gm/dL (11.4-16.0); MCH 37.2 pg (25.0-35.0); MCHC 34.9 g/dL (31.0-37.0); MCV 106.7 fL (80.0-100.0); Macrocytosis Moderate; Mean Platelet Volume 8.8; Platelet Count 100 k/uL (150-450); RBC 2.79 m/uL (3.80-5.40); RDW 14.4 % (11.5-15.5); WBC 2.8 k/uL (3.8-10.6)
[2022-11-23 08:35] LABS: African American GFR (CKD) >90 (>60 ml/min/1.73 sqM); Anion Gap 6 mmol/L; Blood Urea Nitrogen 16 mg/dL (7-17); Calcium 8.9 mg/dL (8.4-10.2); Carbon Dioxide 27 mmol/L (22-30); Chloride 104 mmol/L (98-107); Glucose 84 mg/dL (74-99); Non-African American GFR(CKD) >90 (>60 ml/min/1.73 sqM); Potassium 3.8 mmol/L (3.5-5.1); Sodium 137 mmol/L (137-145)
[2022-11-23] MEDS: CYANOCOBALAMIN 500 MCG TAB PO SCH (08:39)
[2022-11-23] MEDS: METOPROLOL SUCCINATE (ER) 25 MG TAB.ER.24H PO SCH ×2 (08:39→20:41)
[2022-11-23] MEDS: ASCORBIC ACID 500 MG TAB PO SCH (08:39)
[2022-11-23] MEDS: CLOPIDOGREL 75 MG TAB PO SCH (08:39)
[2022-11-23] MEDS: CHOLECALCIFEROL 25 MCG (1000 IU) TABLET PO SCH (08:39)
[2022-11-23] MEDS: ASPIRIN 81 MG PO SCH (08:39)
[2022-11-23] MEDS: lisinopriL 10 MG TAB PO SCH (08:40)
[2022-11-23] MEDS: CARBIDOPA-LEVODOPA 25-100 MG 1 EACH TAB PO SCH ×3 (08:40→20:44)
[2022-11-23] MEDS: TIMOLOL 0.5% OPHTH DROPS 5 ML BTL RIGHT EYE SCH ×2 (08:44→20:42)
[2022-11-23] MEDS: BRIMONIDINE TARTRATE 0.2% DROPS 5 ML BTL RIGHT EYE SCH ×2 (08:44→20:42)
[2022-11-23] MEDS: FAMOTIDINE 20 MG/2 ML VIAL IV SCH ×2 (12:11→20:41)
[2022-11-23] MEDS: HEPARIN SODIUM,PORCINE 5,000 UNIT/ML 1 ML VIAL SQ SCH ×2 (12:11→20:38)
[2022-11-23 13:23] LABS: Chol/HDL Ratio 2.67 Ratio; VLDL Calculation 16.92 mg/dL (5.00-40.00)
--- NOTE | 2022-11-23 13:46 | P.PN ---
Subjective Progress Note Date: 11/23/22 67 years old female with past medical history of Hypertension,anemia, essential tremors, hiatal hernia. 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 WBCs 2.9, hemoglobin 11.1. Platelet count 109 BMP and liver enzymes were unremarkable. Troponin is mildly elevated 0.06. TSH is normal at 0.8. Free T4 is normal. Urine analysis showing moderate blood among [address] of the brain: Chronic appearing white matter changes no acute intracranial process. EKG showing atrial fibrillation at a rate of [address]-T changes 11/21 : Patient continued to complain of lower extremity weakness. Per discussion with neurology likely etiology would be Parkinson's, CT thoracic and lumbar spine negative for acute etiology 11/22 : Patient seen and evaluated bedside. Significant other bedside as well. Lower extremity weakness has improved. MRI brain that showed small focus of acute to subacute infarct in right frontal lobe small vessel ischemic disease noted 11/23: Patient evaluated bedside, patient does complain of tremors, does have generalized nonfocal weakness. MRI results discussed with patient. Carotid ultrasound was completed. Attentional discharge to rehab within the next 24-48 hours depending on clinical course Objective - Vital Signs Vital signs: Vital Signs Temp 97.9 F 11/23/22 08:38 Pulse 74 11/23/22 12:00 Resp 18 11/23/22 12:00 BP 133/74 11/23/22 12:00 Pulse Ox 99 11/23/22 12:00 FiO2 Intake & Output 11/22/22 11/23/22 11/23/22 18:59 06:59 18:59 Intake Total 480 Output Total 350 900 Balance 130 -900 Intake: Oral 480 Output: Urine 350 900 Other: # Voids 1 # Bowel Movements 1 - Exam PHYSICAL EXAMINATION: GENERAL: The patient is alert and oriented x3, ill appearance, generalized re sting tremor HEENT: Pupils are round and equally reacting to light. EOMI. CARDIOVASCULAR: S1 and S2 present. No murmurs, rubs, or gallops. PULMONARY: Chest is clear to auscultation, no wheezing or crackles. ABDOMEN: Soft, nontender, nondistended, normoactive bowel sounds. No palpable organomegaly. MUSCULOSKELETAL: No joint swelling or deformity. EXTREMITIES: No cyanosis, clubbing, or pedal edema. NEUROLOGICAL: Generalized tremors noted, bilateral lower extremity weakness motor strength is about 4 x 5 bilateral lower extremity, upper extremity strength is about 4 x 5 - Labs CBC & Chem 7: 11/23/22 06:56 11/23/22 06:56 Labs: Abnormal Lab Results - Last 24 Hours (Table) 11/23/22 11/23/22 Range/Units 06:56 06:56 WBC 2.8 L (3.8-10.6) k/uL RBC 2.79 L (3.80-5.40) m/uL Hgb 10.4 L (11.4-16.0) gm/dL Hct 29.7 L (34.0-46.0) % MCV 106.7 H (80.0-100.0) fL MCH 37.2 H (25.0-35.0) pg Plt Count 100 L (150-450) k/uL HDL Cholesterol 65.10 H (40.00-60.00) mg/dL Assessment and Plan Plan: Acute to subacute CVA and right frontal lobe Bilateral lower extremity weakness with essential tremor >> Parkinson's disease Macroscopic anemia Elevated troponin type 2 AL History of MDS, with mild pancytopenia History of hiatal hernia Hypertension History of anemia History of essential tremor * Consult obtained from cardiology and neurology * In regards to acute CVA >> CT head negative for acute intracranial process, CT lumbar thoracic spine negative for acute lumbar and thoracic spine stenosis murmur * MRI brain acute to subacute CVA, * Continue patient on aspirin, Plavix and Lipitor * will need physical therapy occupational therapy evaluation * In regards to Parkinson patient started on Sinemet * EKG reviewed by cardiology artifact, recommend continue current medical management. * Echocardiogram reviewed, preserved ejection fraction minimal valvular heart disease noted * Carotid ultrasound negative for hemodynamically significant stenosis
--- NOTE | 2022-11-23 13:59 | P.PN ---
Subjective Progress Note Date: 11/23/22 I'll follow up seeing the patient and she feels that her tremors were improving the yesterday but today she feels its worse since did not get enough sleep. Otherwise denies of any new neurological issues. She denies of any focal weakness, numbness, speech difficulty or swallowing. She stated that the she had the chronic tremor is progressively getting worse as well as unsteady gait and she was seen by her neurologist (Dr. Schulz) and was told she did not have Parkinson's according to patient. She has numbness of bilateral feet and she stated that it's been going on for at least one year but denies any new numbness. Objective - Vital Signs Vital signs: Vital Signs Temp 97.9 F 11/23/22 08:38 Pulse 74 11/23/22 12:00 Resp 18 11/23/22 12:00 BP 133/74 11/23/22 12:00 Pulse Ox 99 11/23/22 12:00 FiO2 Intake & Output 11/22/22 11/23/22 11/23/22 18:59 06:59 18:59 Intake Total 480 Output Total 350 900 Balance 130 -900 Intake: Oral 480 Output: Urine 350 900 Other: # Voids 1 # Bowel Movements 1 - Exam GENERAL: The patient is lying in bed and is not in acute distress. NEUROLOGICAL: Higher mental function: The patient is awake, alert, oriented to self, place and time. Patient is following commands. No aphasia and no neglect. Cranial nerves: The pupils are round, equal and reactive to light. Visual field s are full to confrontation throughout. Extraocular movement is intact no nystagmus is noted. Facial sensation is normal to touch throughout. The facial strength is normal throughout. H Tongue is midline and moved [id number] without any difficulty. No dysarthria is noted. Shoulder shrug is normal bilaterally. Motor: The strength is 5 over 5 throughout uppers and lowers. Has resting tremo rs predominately right upper >left. Has increase tone of the right wrist and some in elbow. Normal bulk. Cerebellum: Normal finger to nose heel to paulson bilaterally. Sensation: Sensation is normal to touch throughout. Reflexes (right/left): 2+ throughout while lowers are 1+. Plantars are mute bilaterally. Some of her workup during his hospital visit consisted of: Lipid panel is struggle start of 84, cholesterol is 174, LDL 92 and HDL is 65 Vitamin B12 is 378 Hemoglobin A1c is 5.8. TSH as a 0.815 and the free T4 is 1.34 CT of the head is reported as chronic-appearing white matter changes. No acute cranial process. Follow-up MRI can be performed as clinically indicated. CT thoracic and lumbar is reported as no evidence for significant spinal canal or neuroforaminal stenosis. No evidence for fracture. MRI the brain is reported as small focus acute/subacute CVA in the right frontal lobe. Nonspecific white matter changes, likely secondary due to small vessel ischemic disease. I personally reviewed the MRI and I agree with the report. 2-D echo was reported as normal left ventricular size and systolic function. Thickened mitral valve with the prolapse and mitral regurgitation. Mitral tricuspid regurgitation with no evidence of pulmonary hypertension Carotid duplex was reported as no significant flow limiting stenosis bilateral carotid bifurcation based on velocity. - Labs CBC & Chem 7: 11/23/22 06:56 11/23/22 06:56 Labs: Abnormal Lab Results - Last 24 Hours (Table) 11/23/22 11/23/22 Range/Units 06:56 06:56 WBC 2.8 L (3.8-10.6) k/uL RBC 2.79 L (3.80-5.40) m/uL Hgb 10.4 L (11.4-16.0) gm/dL Hct 29.7 L (34.0-46.0) % MCV 106.7 H (80.0-100.0) fL MCH 37.2 H (25.0-35.0) pg Plt Count 100 L (150-450) k/uL HDL Cholesterol 65.10 H (40.00-60.00) mg/dL Assessment and Plan Assessment: This is a 67-year-old woman who is been having difficulty walking for the last 2 weeks progressively getting worse. She states she has history of essential tremor diagnosed by her neurologist. On examination she had resting tremor of right upper extremity more than the left as well as increased tone over the right upper extremity. Patient denies off any neck pain or lower back pain. Gait difficulty for the past two weeks with chronic resting tremor of the right> left upper extremity Likely Parkinson's disease--patient noticed initial improvement after Sinemet. Incidental Acute ischemic stroke small focus over the right frontal seen on MRI: No IV tpa since outside window and low NIH is low. Risk of tpa outweigh benefit. History of reported essential tremor by her outside neurologist but I feel more Parkinson's (tremor of the right upper extremity at rest with increase tone) History of myelodyspastic syndrome with bone biopsy october 2020 History of hypertension Plan: Because her recent small focus stroke: She was started on ASA 81mg daily by primary and I added Plavix 75mg daily. And to be on dual antiplatelets for 21 days and after 20 with a stop Plavix but continue aspirin indefinitely. I went down on Lipitor from 40mg to 20mg daily since no signficant carotid stenosis. Lipitor is for secondary stroke prophylaxis. LDL foal in stroke is <70 (her level is 92). Continue Sinemet 25-100 1 tab tid and patient feels tremors are improving (started during this admission). Patient has noticed poor movements on day 1 but today she feels her sleep was off so her tremor is back to baseline as her presentation. Patient is refusing modification of the medications such as making her more frequent or going up on the medication and she stated that the she'll see how she does from today to tomorrow and she'll notify me and to make an adjustment tomorrow. I stopped her home dose of Primidone. PT/OT and SECURITIES RESEARCH ANALYST are consulted. Will defer the rest of management to primary team. Continue neuro checks On cardiac monitoring We'll defer the rest of medical management to primary team For DVT prophylaxis On subcu heparin 5000 units every 12 hours The plan is discussed with patient. Time with Patient: Less than 30
[2022-11-23] MEDS ORDERED: polyethylene glycoL 3350 17 GM POWD.PACK PO PRN (15:04)
[2022-11-23] MEDS: SODIUM CHLORIDE 0.9% 1,000 ML IV SCH (20:19)
[2022-11-23] MEDS: ATORVASTATIN 20 MG TAB PO SCH (20:37)
[2022-11-23] MEDS: NON FORMULARY DRUG (Netarsudil Mesylat/Latanoprost [Rocklatan 0.02%-0.005% Eye Drp] 2.5 ML BOTH EYES SCH (20:38)
[2022-11-23] MEDS ORDERED: ATORVASTATIN 10 MG TAB PO SCH (21:00)
[2022-11-24] MEDS: ASCORBIC ACID 500 MG TAB PO SCH (08:52)
[2022-11-24] MEDS: CHOLECALCIFEROL 25 MCG (1000 IU) TABLET PO SCH (08:52)
[2022-11-24] MEDS: CYANOCOBALAMIN 500 MCG TAB PO SCH (08:52)
[2022-11-24] MEDS: METOPROLOL SUCCINATE (ER) 25 MG TAB.ER.24H PO SCH ×2 (08:52→19:51)
[2022-11-24] MEDS: CARBIDOPA-LEVODOPA 25-100 MG 1 EACH TAB PO SCH ×3 (08:52→19:51)
[2022-11-24] MEDS: ASPIRIN 81 MG PO SCH (08:52)
[2022-11-24] MEDS: FAMOTIDINE 20 MG/2 ML VIAL IV SCH ×2 (08:53→19:51)
[2022-11-24] MEDS: lisinopriL 10 MG TAB PO SCH (08:53)
[2022-11-24] MEDS: CLOPIDOGREL 75 MG TAB PO SCH (09:45)
[2022-11-24] MEDS: HEPARIN SODIUM,PORCINE 5,000 UNIT/ML 1 ML VIAL SQ SCH ×2 (09:45→21:37)
[2022-11-24] MEDS: SODIUM CHLORIDE 0.9% 1,000 ML IV SCH (09:45)
[2022-11-24] MEDS: BRIMONIDINE TARTRATE 0.2% DROPS 5 ML BTL RIGHT EYE SCH ×2 (11:46→19:52)
[2022-11-24] MEDS: TIMOLOL 0.5% OPHTH DROPS 5 ML BTL RIGHT EYE SCH ×2 (11:47→19:52)
--- NOTE | 2022-11-24 12:17 | P.PN ---
Subjective Progress Note Date: 11/24/22 I am following-up seeing the patient and she feels about the same. She is refusing to take Plavix and per nurse she has been refusing since yesterday. She feels tremor is about the same and refusing to go up on Sinemet. Otherwise denies of any other neurological issues. Objective - Vital Signs Vital signs: Vital Signs Temp 97.4 F L 11/24/22 11:49 Pulse 74 11/24/22 11:49 Resp 16 11/24/22 11:49 BP 104/67 11/24/22 11:49 Pulse Ox 98 11/24/22 11:49 FiO2 Intake & Output 11/23/22 11/24/22 11/24/22 18:59 06:59 18:59 Intake Total 540 Output Total 500 500 Balance -500 -500 540 Intake: Oral 540 Output: Urine 500 500 Other: # Bowel Movements 1 - Exam GENERAL: The patient is lying in bed and is not in acute distress. Psych: Flat affect NEUROLOGICAL: Higher mental function: The patient is awake, alert, oriented to self, place and time. Patient is following commands. No aphasia and no neglect. Cranial nerves: The pupils are round, equal and reactive to light. Visual bolton are full to confrontation throughout. Extraocular movement is intact no nystagmus is noted. Facial sensation is normal to touch throughout. The facial strength is normal throughout. H Tongue is midline and moved [id number] without any difficulty. No dysarthria is noted. Shoulder shrug is normal bilaterally. Motor: The strength is 5 over 5 throughout uppers and lowers. Has resting tremors predominately right upper >left. Has increase tone of the right wrist and some in elbow. Normal bulk. Cerebellum: Normal finger to nose heel to paulson bilaterally. Sensation: Sensation is normal to touch throughout. Reflexes (right/left): 2+ throughout while lowers are 1+. Plantars are mute bilaterally. Some of her workup during his hospital visit consisted of: Lipid panel is struggle start of 84, cholesterol is 174, LDL 92 and HDL is 65 Vitamin B12 is 378 Hemoglobin A1c is 5.8. TSH as a 0.815 and the free T4 is 1.34 CT of the head is reported as chronic-appearing white matter changes. No acute cranial process. Follow-up MRI can be performed as clinically indicated. CT thoracic and lumbar is reported as no evidence for significant spinal canal or neuroforaminal stenosis. No evidence for fracture. MRI the brain is reported as small focus acute/subacute CVA in the right frontal lobe. Nonspecific white matter changes, likely secondary due to small vessel ischemic disease. I personally reviewed the MRI and I agree with the report. 2-D echo was reported as normal left ventricular size and systolic function. Thickened mitral valve with the prolapse and mitral regurgitation. Mitral tricuspid regurgitation with no evidence of pulmonary hypertension Carotid duplex was reported as no significant flow limiting stenosis bilateral carotid bifurcation based on velocity. - Labs CBC & Chem 7: 11/23/22 06:56 11/23/22 06:56 Labs: Abnormal Lab Results - Last 24 Hours (Table) 11/23/22 Range/Units 06:56 HDL Cholesterol 65.10 H (40.00-60.00) mg/dL Assessment and Plan Assessment: This is a 67-year-old woman who is been having difficulty walking for the last 2 weeks progressively getting worse. She states she has history of essential tremor diagnosed by her neurologist. On examination she had resting tremor of right upper extremity more than the left as well as increased tone over the right upper extremity. Patient denies off any neck pain or lower back pain. Gait difficulty for the past two weeks with chronic resting tremor of the right> left upper extremity Likely Parkinson's disease--patient noticed initial improvement after Sinemet. Incidental Acute ischemic stroke small focus over the right frontal seen on MRI: No IV tpa since outside window and low NIH is low. Risk of tpa outweigh benefit. History of reported essential tremor by her outside neurologist but I feel more Parkinson's (tremor of the right upper extremity at rest with increase tone) History of myelodyspastic syndrome with bone biopsy october 2020 History of hypertension Plan: * Because her recent small focus stroke: She was started on ASA 81mg daily by primary and I added Plavix 75mg daily. But patient is refusing Plavix. Recommend dual antiplatelets for 21 days and after 20 with a stop Plavix but continue aspirin indefinitely. I went down on Lipitor from 40mg to 20mg daily since no signficant carotid stenosis. Lipitor is for secondary stroke prophylaxis. LDL foal in stroke is <70 (her level is 92). * Continue Sinemet 25-100 1 tab tid and patient feels tremors are improving (started during this admission). Patient has noticed poor movements on day 1 but after than no improvement and refusing modification of her medication. I stopped her home dose of Primidone. * PT/OT and ENTERPRISE INFRASTRUCTURE ARCHITECT are consulted. * Will defer the rest of management to primary team. * Continue neuro checks * On cardiac monitoring * We'll defer the rest of medical management to primary team * For DVT prophylaxis On subcu heparin 5000 units every 12 hours * Patient follows-up with Dr. Schulz (neurologist) as outpatient. The plan is discussed with patient, primary attending and her nurse. Dr. Pedroza will start neurology service tomorrow A.M. Time with Patient: Less than 30
--- NOTE | 2022-11-24 12:55 | P.PN ---
Subjective Progress Note Date: 11/24/22 67 years old female with past medical history of Hypertension,anemia, essential tremors, hiatal hernia. 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 WBCs 2.9, hemoglobin 11.1. Platelet count 109 BMP and liver enzymes were unremarkable. Troponin is mildly elevated 0.06. TSH is normal at 0.8. Free T4 is normal. Urine analysis showing moderate blood among [address] of the brain: Chronic appearing white matter changes no acute intracranial process. EKG showing atrial fibrillation at a rate of [address]-T changes 11/21 : Patient continued to complain of lower extremity weakness. Per discussion with neurology likely etiology would be Parkinson's, CT thoracic and lumbar spine negative for acute etiology 11/22 : Patient seen and evaluated bedside. Significant other bedside as well. Lower extremity weakness has improved. MRI brain that showed small focus of acute to subacute infarct in right frontal lobe small vessel ischemic disease noted 11/23: Patient evaluated bedside, patient does complain of tremors, does have generalized nonfocal weakness. MRI results discussed with patient. Carotid ultrasound was completed. Attentional discharge to rehab within the next 24-48 hours depending on clinical course 11/24: Patient evaluated bedside, discussed with neurology patient is refusing Plavix we will continue aspirin at this point. Patient will need to go to rehab potential discharge within the next 24 hours. Carotid ultrasound negative discussed with patient and at bedside Objective - Vital Signs Vital signs: Vital Signs Temp 97.4 F L 11/24/22 11:49 Pulse 74 11/24/22 11:49 Resp 16 11/24/22 11:49 BP 104/67 11/24/22 11:49 Pulse Ox 98 11/24/22 11:49 FiO2 Intake & Output 11/23/22 11/24/22 11/24/22 18:59 06:59 18:59 Intake Total 540 Output Total 500 500 Balance -500 -500 540 Intake: Oral 540 Output: Urine 500 500 Other: # Bowel Movements 1 - Exam PHYSICAL EXAMINATION: GENERAL: The patient is alert and oriented x3, ill appearance, generalized resting tremor HEENT: Pupils are round and equally reacting to light. EOMI. CARDIOVASCULAR: S1 and S2 present. No murmurs, rubs, or gallops. PULMONARY: Chest is clear to auscultation, no wheezing or crackles. ABDOMEN: Soft, nontender, nondistended, normoactive bowel sounds. No palpable organomegaly. MUSCULOSKELETAL: No joint swelling or deformity. EXTREMITIES: No cyanosis, clubbing, or pedal edema. NEUROLOGICAL: Generalized tremors noted, bilateral lower extremity weakness motor strength is about 4 x 5 bilateral lower extremity, upper extremity strength is about 4 x 5 - Labs CBC & Chem 7: 11/23/22 06:56 11/23/22 06:56 Labs: Abnormal Lab Results - Last 24 Hours (Table) 11/23/22 Range/Units 06:56 HDL Cholesterol 65.10 H (40.00-60.00) mg/dL Assessment and Plan Plan: Acute to subacute CVA and right frontal lobe Bilateral lower extremity weakness with essential tremor >> Parkinson's disease Macroscopic anemia Elevated troponin type 2 NM History of MDS, with mild pancytopenia History of hiatal hernia Hypertension History of anemia History of essential tremor * Consult obtained from cardiology and neurology * In regards to acute CVA >> CT head negative for acute intracranial process, CT lumbar thoracic spine negative for acute lumbar and thoracic spine stenosis * MRI brain acute to subacute CVA, > neurology recommended aspirin, Plavix, Lipitor. Patient refuses Plavix hence we will use aspirin and Lipitor. Potential discharge to rehab within the next 24 hours * will need physical therapy occupational therapy evaluation * In regards to Parkinson patient started on Sinemet * EKG reviewed by cardiology artifact, recommend continue current medical management. * Echocardiogram reviewed, preserved ejection fraction minimal valvular heart disease noted * Carotid ultrasound negative for hemodynamically significant stenosis
[2022-11-24] MEDS: ATORVASTATIN 20 MG TAB PO SCH (21:37)
[2022-11-24] MEDS: NON FORMULARY DRUG (Netarsudil Mesylat/Latanoprost [Rocklatan 0.02%-0.005% Eye Drp] 2.5 ML BOTH EYES SCH (21:38)
[2022-11-25] MEDS: SODIUM CHLORIDE 0.9% 1,000 ML IV SCH (00:44)
[2022-11-25 08:33] VITALS: TEMP 97.8
[2022-11-25] MEDS: ASCORBIC ACID 500 MG TAB PO SCH (08:33)
[2022-11-25] MEDS: CARBIDOPA-LEVODOPA 25-100 MG 1 EACH TAB PO SCH (08:33)
[2022-11-25] MEDS: lisinopriL 10 MG TAB PO SCH (08:33)
[2022-11-25] MEDS: CYANOCOBALAMIN 500 MCG TAB PO SCH (08:33)
[2022-11-25] MEDS: ASPIRIN 81 MG PO SCH (08:33)
[2022-11-25] MEDS: METOPROLOL SUCCINATE (ER) 25 MG TAB.ER.24H PO SCH (08:33)
[2022-11-25] MEDS: CHOLECALCIFEROL 25 MCG (1000 IU) TABLET PO SCH (08:33)
[2022-11-25] MEDS: FAMOTIDINE 20 MG/2 ML VIAL IV SCH (08:34)
[2022-11-25] MEDS: BRIMONIDINE TARTRATE 0.2% DROPS 5 ML BTL RIGHT EYE SCH (08:34)
[2022-11-25] MEDS: TIMOLOL 0.5% OPHTH DROPS 5 ML BTL RIGHT EYE SCH (08:34)
[2022-11-25] MEDS: HEPARIN SODIUM,PORCINE 5,000 UNIT/ML 1 ML VIAL SQ SCH (08:53)
[2022-11-25 10:00] LABS: HCT 31.8 % (34.0-46.0); HGB 11.1 gm/dL (11.4-16.0); Hypochromasia Slight; MCH 37.3 pg (25.0-35.0); MCHC 34.9 g/dL (31.0-37.0); MCV 106.8 fL (80.0-100.0); Macrocytosis Moderate; Mean Platelet Volume 8.4; Platelet Count 109 k/uL (150-450); RBC 2.98 m/uL (3.80-5.40); WBC 2.6 k/uL (3.8-10.6)
[2022-11-25 10:22] LABS: African American GFR (CKD) >90 (>60 ml/min/1.73 sqM); Anion Gap 8 mmol/L; Blood Urea Nitrogen 18 mg/dL (7-17); Carbon Dioxide 30 mmol/L (22-30); Chloride 102 mmol/L (98-107); Glucose 90 mg/dL (74-99); Non-African American GFR(CKD) >90 (>60 ml/min/1.73 sqM); Sodium 140 mmol/L (137-145)
[2022-11-25 12:01] VITALS: BP 131/73; PULSE 68; RESP 16
--- NOTE | 2022-11-25 12:54 | CDI ---
Documentation Clarification Form Date: From: Susan Fuentes Phone: [phone] Admit Date: 11/22/2022 02:59:00 PM Patient Name: Violeta Andrews Visit Number: [id number] Discharge Date: ATTENTION: The Clinical Documentation Specialists (CDI) and [facility] Coding Staff appreciate your assistance in clarifying documentation. Please respond to the clarification below the line at the bottom and electronically sign. The CDI & [facility] Coding staff will review the response and follow-up if needed. Please note: Queries are made part of the Legal Health Record. If you have any questions, please contact the author of this message via ITS. Dr. Mcgovern E Sheet "type 2 PR" is documented in the Progress Note on 11/24 which may lack sufficient clinical evidence/support in the medical record. Additional clarification is requested. History/Risk Factors: "67 years old female with past medical history of Hypertension, anemia, essential tremors, hiatal hernia. 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 Patient denies having any symptoms today, no chest pain or shortness of breath, no palpitations." "Troponin elevation of unclear significance, acute coronary syndrome ruled out Cardiac arrhythmia ruled out as artifact on EKG" - Per Cardiology Progress Note on 11/22 Treatment: Per Cardiology Consult Note on 11/22 "Continue patient's current cardiac medications Cardiology will sign off this case and follow on an as-needed basis." Please clarify if NSTEMI type 2 is a valid diagnosis? [ ] Yes, NSTEMI type 2 is present as evidence by (additional clinical support): [ ] No, NSTEMI type 2 is ruled out [ ] Other (please specify diagnosis) [ ] Unable to determine most likely pt did not have NSTEMI MTDD
--- NOTE | 2022-11-25 14:20 | P.DS ---
Providers Date of admission: 11/22/22 14:59 Expected date of discharge: 11/25/22 Attending physician: Froilan South MD Consults: 11/20/22 15:29 Consult Physician Routine Consulting Provider: Wilfredo Jimenez Consult Reason/Comments: eval for a fib Do you want consulting provider notified?: Yes Consult Physician Routine Consulting Provider: Lev Beltran Consult Reason/Comments: leg weakness Do you want consulting provider notified?: Yes Primary care physician: Melina Santa Hospital Course: Discharge diagnoses; Acute to subacute CVA and right frontal lobe Bilateral lower extremity weakness with essential tremor >> Parkinson's disease Macroscopic anemia Elevated troponin type 2 [place] History of MDS, with mild pancytopenia History of hiatal hernia Hypertension History of anemia History of essential tremor Consult obtained from cardiology and neurology * In regards to acute CVA >> CT head negative for acute intracranial process, CT lumbar thoracic spine negative for acute lumbar and thoracic spine stenosis * MRI brain acute to subacute CVA, > neurology recommended aspirin, Plavix, Lipitor. Patient refuses Plavix hence we will use aspirin and Lipitor. * Echocardiogram reviewed, preserved ejection fraction minimal valvular heart disease noted * Carotid ultrasound negative for hemodynamically significant stenosis Hospital course; 67 years old female with past medical history of Hypertension,anemia, essential tremors, hiatal hernia. 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 WBCs 2.9, hemoglobin 11.1. Platelet count 109 BMP and liver enzymes were unremarkable. Troponin is mildly elevated 0.06. TSH is normal at 0.8. Free T4 is normal. Urine analysis showing moderate blood among [address] of the brain: Chronic appearing white matter changes no acute intracranial process. EKG showing atrial fibrillation at a rate of [address]-T changes 11/21 : Patient continued to complain of lower extremity weakness. Per discussion with neurology likely etiology would be Parkinson's, CT thoracic and lumbar spine negative for acute etiology 11/22 : Patient seen and evaluated bedside. Significant other bedside as well. Lower extremity weakness has improved. MRI brain that showed small focus of acute to subacute infarct in right frontal lobe small vessel ischemic disease noted 11/23: Patient evaluated bedside, patient does complain of tremors, does have generalized nonfocal weakness. MRI results discussed with patient. Carotid ultrasound was completed. Attentional discharge to rehab within the next 24-48 hours depending on clinical course 11/24: Patient evaluated bedside, discussed with neurology patient is refusing Plavix we will continue aspirin at this point. Patient will need to go to rehab potential discharge within the next 24 hours. Carotid ultrasound negative discussed with patient and at bedside 11/25. Patient seen and examined. Labs and vital signs reviewed. Patient being discharged to rehab in stable condition PHYSICAL EXAMINATION: GENERAL: The patient is alert and oriented x3, not in any acute distress. Well developed, well nourished. HEENT: Pupils are round and equally reacting to light. EOMI. No scleral icterus. No conjunctival pallor. Normocephalic, atraumatic. No pharyngeal erythema. No thyromegaly. CARDIOVASCULAR: S1 and S2 present. No murmurs, rubs, or gallops. PULMONARY: Chest is clear to auscultation, no wheezing or crackles. ABDOMEN: Soft, nontender, nondistended, normoactive bowel sounds. No palpable organomegaly. MUSCULOSKELETAL: No joint swelling or deformity. EXTREMITIES: No cyanosis, clubbing, or pedal edema. NEUROLOGICAL: Generalized tremors noted, bilateral lower extremity weakness motor strength is about 4 x 5 bilateral lower extremity, upper extremity strength is about 4 x 5 SKIN: No rashes. Dictation was produced using [employer] dictation software. please excuse any grammatical, word or spelling errors. Patient Condition at Discharge: Good Plan - Discharge Summary Discharge Rx Participant: No New Discharge Prescriptions: New Carbidopa-Levodopa 25-100 mg [Sinemet 25-100 mg] 1 each PO TID #30 tab Cyanocobalamin [Vitamin B-12] 1,000 mcg PO DAILY #30 tab Aspirin 81 mg PO DAILY #30 tab Atorvastatin [Lipitor] 40 mg PO HS #30 tab Metoprolol Succinate (ER) [Toprol XL] 12.5 mg PO BID #30 tab Continue lisinopriL [Zestril] 10 mg PO DAILY Vitamin B Complex 1 cap PO DAILY Netarsudil Mesylat/Latanoprost [Rocklatan 0.02%-0.005% Eye Drp] 1 drop BOTH EYES HS Brimonidine Tartrate/Timolol [Brimonidine-Timolol 0.2%-0.5%] 1 drop RIGHT EYE BID Ascorbic Acid [Vitamin C] 1,000 mg PO DAILY Primidone [Mysoline] 50 mg PO TID Cholecalciferol [Vitamin D3 (25 Mcg = 1000 Iu)] 25 mcg PO DAILY Discharge Medication List lisinopriL [Zestril] 10 mg PO DAILY 06/07/18 [History] Primidone [Mysoline] 50 mg PO TID 08/25/20 [History] Ascorbic Acid [Vitamin C] 1,000 mg PO DAILY 11/20/22 [History] Brimonidine Tartrate/Timolol [Brimonidine-Timolol 0.2%-0.5%] 1 drop RIGHT EYE BID 11/20/22 [History] Cholecalciferol [Vitamin D3 (25 Mcg = 1000 Iu)] 25 mcg PO DAILY 11/20/22 [History] Netarsudil Mesylat/Latanoprost [Rocklatan 0.02%-0.005% Eye Drp] 1 drop BOTH EYES HS 11/20/22 [History] Vitamin B Complex 1 cap PO DAILY 11/20/22 [History] Aspirin 81 mg PO DAILY #30 tab 11/25/22 [Rx] Atorvastatin [Lipitor] 40 mg PO HS #30 tab 11/25/22 [Rx] Carbidopa-Levodopa 25-100 mg [Sinemet 25-100 mg] 1 each PO TID #30 tab 11/25/22 [Rx] Cyanocobalamin [Vitamin B-12] 1,000 mcg PO DAILY #30 tab 11/25/22 [Rx] Metoprolol Succinate (ER) [Toprol XL] 12.5 mg PO BID #30 tab 11/25/22 [Rx] Follow up Appointment(s)/Referral(s): [facility] [Provider Group] - 1 Week Melina Santa MD [Primary Care Provider] - 1-2 days Discharge Disposition: TRANSFER TO SNF/F
== END 2022-11-25 15:31 | DRG 66 ==
LOC: EC 10:09 → 6NMEDSUR 15:30 → 3SCARD 16:56 → OBSVTOIN 11-22 14:59
PROVIDERS: ADMIT Internal Medicine; ATTEND Internal Medicine
DX: I63.9 Cerebral infarction, unspecified (principal); I48.91 Unspecified atrial fibrillation; I10 Essential (primary) hypertension; G25.0 Essential tremor; G20 Parkinson's disease; D46.9 Myelodysplastic syndrome, unspecified; D53.9 Nutritional anemia, unspecified; K44.9 Diaphragmatic hernia without obstruction or gangrene; Z79.899 Other long term (current) drug therapy; Z80.7 Family history of other malignant neoplasms of lymphoid, hematopoietic and related tissues
CPT/HCPCS: 36415; 70450; 70551; 71046; 72128; 72131; 80048; 80053; 80061; 81001; 82607; 83036; 83605; 83735; 84100; 84439; 84443; 84481; 84484; 85025; 85027; 85610; 85730; 93005; 93306; 93880; 94760; 96360; 99285

== ENCOUNTER 2022-12-22 12:32 | Observation (INO) | payer MEDICARE ==
--- NOTE | 2022-12-22 12:47 | ED ---
Lower Extremity Injury HPI - General Chief Complaint: Extremity Injury, Lower Stated Complaint: Fall, right hip pain Time Seen by Provider: 12/22/22 12:33 Source: patient, EMS, RN notes reviewed Mode of arrival: EMS Limitations: no limitations - History of Present Illness Initial Comments: This is a 67-year-old female who presents to the emergency department for a fall. Patient was walking around in her yard this morning, when she tripped and fell, landing on her right hip. Denies hitting her head or sustaining any other injuries. She is not taking any blood thinners. Patient is shaking in the examination room, which she states is normal for her secondary to tremors. Denies any fevers, chills, sore throat, cough, dyspnea, chest pain, palpitations, abdominal pain, nausea, vomiting, diarrhea, back pain, or headaches. MD Complaint: hip injury - Related Data Home Medications Medication Instructions Recorded Confirmed lisinopriL [Zestril] 10 mg PO DAILY 06/07/18 12/22/22 Ascorbic Acid [Vitamin C] 1,000 mg PO DAILY 11/20/22 12/22/22 Brimonidine Tartrate/Timolol 1 drop RIGHT EYE BID 11/20/22 12/22/22 [Brimonidine-Timolol 0.2%-0.5%] Cholecalciferol [Vitamin D3 (25 25 mcg PO DAILY 11/20/22 12/22/22 Mcg = 1000 Iu)] Netarsudil Mesylat/Latanoprost 1 drop BOTH EYES HS 11/20/22 12/22/22 [Rocklatan 0.02%-0.005% Eye Drp] Vitamin B Complex 1 cap PO DAILY 11/20/22 12/22/22 Carbidopa-Levodopa 25-100 mg 1 tab PO TID 12/22/22 12/22/22 [Sinemet 25-100 mg] Omeprazole 20 mg PO DAILY 12/22/22 12/22/22 Previous Rx's Medication Instructions Recorded Aspirin 81 mg PO DAILY #30 tab 11/25/22 Metoprolol Succinate (ER) [Toprol 12.5 mg PO BID #30 tab 11/25/22 XL] Allergies Allergy/AdvReac Type Severity Reaction Status Date / Time No Known Allergies Allergy Verified 12/22/22 18:03 Review of Systems ROS Statement: Those systems with pertinent positive or pertinent negative responses have been documented in the HPI. ROS Other: All systems not noted in ROS Statement are negative. Past Medical History Past Medical History: Hypertension Additional Past Medical History / Comment(s): anemia, essential tremors, hiatal hernia. 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 Bone Marrow BX october 2020 Past Anesthesia/Blood Transfusion Reactions: No Reported Reaction Past Psychological History: No Psychological Hx Reported Smoking Status: Never smoker Past Alcohol Use History: None Reported Past Drug Use History: None Reported - Past Family History Mother Family Medical History: No Reported History Brother(s) Family Medical History: Cancer Additional Family Medical History / Comment(s): nonHodgkin's Lymphoma General Exam Limitations: no limitations General appearance: alert, in no apparent distress Head exam: Present: atraumatic, normocephalic, normal inspection Respiratory exam: Present: normal lung sounds bilaterally. Absent: respiratory distress, wheezes, rales, rhonchi, stridor Cardiovascular Exam: Present: regular rate, normal rhythm, normal heart sounds. Absent: systolic murmur, diastolic murmur, rubs, gallop, clicks Extremities exam: Present: other (Tenderness to palpation over the right greater trochanter. Limited range of motion of the right lower extremity secondary to pain. No rotation or shortening. 2+ DP and PT pulses. Capillary refill less than 1 second.) Neurological exam: Present: alert, oriented X3, CN II-XII intact Psychiatric exam: Present: normal affect, normal mood Skin exam: Present: warm, dry, intact, normal color. Absent: rash Course Vital Signs 12/22/22 12/22/22 12/22/22 12:34 14:24 17:04 Temperature 97.6 F Pulse Rate 77 91 89 Respiratory 18 18 18 Rate Blood Pressure 117/83 117/77 129/82 O2 Sat by Pulse 95 96 95 Oximetry 12/22/22 20:00 Temperature Pulse Rate Respiratory 18 Rate Blood Pressure O2 Sat by Pulse Oximetry Medical Decision Making - Medical Decision Making This is a 67-year-old female who presents to the emergency department for right hip pain after a fall. Was pt. sent in by a medical professional or institution? @ -No Did you speak to anyone other than the patient for history? @ -No Did you review nursing and triage notes? @ -Yes, and I agree, it is accurate with regards to the patient's symptoms. Were old charts reviewed? @ -No Differential Diagnosis? @ -Differential Hip Pain: Fracture, dislocation, osteoarthritis, rheumatoid arthritis, septic arthritis, gout, synovitis, piriformis syndrome, bursitis, arterial occlusion, DVT, femoroacetabular inpingement, labral tear, avascular necrosis, SI joint dysfunction, this is not meant to be an all-inclusive list. EKG interpreted by me (3pts min.)? @ -Not obtained X-rays interpreted by me (1pt min.)? @ -X-ray of the right hip obtained. My interpretation identifies no acute fractures or dislocations. CT interpreted by me (1pt min.)? @ -CT scan of the right hip obtained. My interpretation identifies no acute fractures or dislocations. U/S interpreted by me (1pt. min.)? @ -Not obtained What testing was considered but not performed? (CT, X-rays, U/S, labs)? Why? @ -None What meds were considered but not given? Why? @ -None Did you discuss the management of the patient with other professionals? @ -Yes, Dr. Pérez, who accepts the patient for admission. Did you reconcile home meds? @ -Yes Was smoking cessation discussed for >3mins.? @ -No Was critical care preformed (if so, how long)? @ -No Were there social determinants of health that impacted care today? How? (Homelessness, low income, unemployed, alcoholism, drug addiction, transportation, low edu. Level, literacy, decrease access to med. care, residential, rehab)? @ -No Was there de-escalation of care discussed even if they declined? (Discuss DNR or withdrawal of care, Hospice)? @ -No What co-morbidities impacted this encounter? (DM, HTN, Smoking, COPD, CAD, Cancer, CVA, Hep., AIDS, mental health diagnosis, sleep apnea, morbid obesity)? @ -HTN, essential tremors Was patient admitted / discharged? @ -Admitted. We initially obtained an x-ray of the right hip, which revealed a hematoma but no acute fractures or dislocations. Patient was given pain medication and we tried to get her to ambulate, however she could not put pressure on the right leg. We subsequently obtained a computed tomography scan of the hip, which again revealed no acute abnormalities. She was given an additional dose of pain medication, but was still unable to ambulate. She also has tremors and uses a walker at baseline, further complicating this. Given the intractable pain with an inability to ambulate, patient admitted to medicine for further management. Consult placed for orthopedics. PT and OT evaluations ordered as well. Undiagnosed new problem with uncertain prognosis? @ -None Drug Therapy requiring intensive monitoring for toxicity (Heparin, Nitro, Insul in, Cardizem)? @ -None Were any procedures done? @ -None Diagnosis/symptom? @ -Right hip pain, fall, inability to ambulate Acute, or Chronic, or Acute on Chronic? @ -Acute Uncomplicated (without systemic symptoms) or Complicated (systemic symptoms)? @ -Uncomplicated Side effects of treatment? @ -None Exacerbation, Progression, or Severe Exacerbation] @ -Not applicable Poses a threat to life or bodily function? @ -Yes, impacting her ability to ambulate This case was discussed in detail with the attending ED physician, Dr. Zhou. Presentation, findings, and treatment plan discussed in detail as well. - Lab Data Result diagrams: 12/22/22 17:28 12/22/22 17:28 Lab Results 12/22/22 12/22/22 Range/Units 17:28 17:28 WBC 5.6 (3.8-10.6) k/uL RBC 2.72 L (3.80-5.40) m/uL Hgb 9.8 L (11.4-16.0) gm/dL Hct 28.7 L (34.0-46.0) % MCV 105.4 H (80.0-100.0) fL MCH 35.9 H (25.0-35.0) pg MCHC 34.1 (31.0-37.0) g/dL RDW 14.4 (11.5-15.5) % Plt Count 113 L (150-450) k/uL MPV 8.5 Neutrophils % 72 % Lymphocytes % 13 % Monocytes % 4 % Eosinophils % 10 % Basophils % 0 % Neutrophils # 4.1 (1.3-7.7) k/uL Lymphocytes # 0.8 L (1.0-4.8) k/uL Monocytes # 0.2 (0-1.0) k/uL Eosinophils # 0.6 (0-0.7) k/uL Basophils # 0.0 (0-0.2) k/uL Macrocytosis Moderate Sodium 129 L (137-145) mmol/L Potassium 4.2 (3.5-5.1) mmol/L Chloride 100 (98-107) mmol/L Carbon Dioxide 23 (22-30) mmol/L Anion Gap 6 mmol/L BUN 21 H (7-17) mg/dL Creatinine 0.46 L (0.52-1.04) mg/dL Est GFR (CKD-EPI)AfAm >90 (>60 ml/min/1.73 sqM) Est GFR (CKD-EPI)NonAf >90 (>60 ml/min/1.73 sqM) Glucose 98 (74-99) mg/dL Calcium 8.5 (8.4-10.2) mg/dL Total Bilirubin 0.9 (0.2-1.3) mg/dL AST 30 (14-36) U/L ALT 17 (4-34) U/L Alkaline Phosphatase 107 (38-126) U/L Total Protein 6.2 L (6.3-8.2) g/dL Albumin 3.6 (3.5-5.0) g/dL - Radiology Data Radiology results: report reviewed, image reviewed Disposition Clinical Impression: Right hip pain, Inability to ambulate due to right hip Disposition: ADMITTED IP TO THIS HOSP
--- NOTE | 2022-12-22 12:58 | XR ---
EXAMINATION TYPE: XR Hip Complete RT DATE OF EXAM: 12/22/2022 12:51 PM INDICATION: Patient age:Female; 67 years old; Reason for study: Pain after fall; PHH. COMPARISON: Right hip radiograph 05/02/2021 TECHNIQUE: The right hip was examined in the frontal and lateral projections. FINDINGS: Postsurgical changes from total right hip arthroplasty. Hardware appears intact with approp riate alignment. No surrounding lucency to suggest loosening. Surrounding heterotopic ossification. N o evidence of any acute osseous pathology joint dislocation. Moderate right lateral hip soft tissue s welling. IMPRESSION: 1. No acute osseous pathology. 2. Postsurgical from right hip arthroplasty. Hardware appears intact. 3. Moderate right lateral hip soft tissue swelling likely representing a hematoma.
[2022-12-22] MEDS ORDERED: Acetaminophen-Codeine 300-30mg TAB PO STA (14:15)
[2022-12-22] MEDS ORDERED: KETOROLAC 15 MG/ML 1 ML VIAL IM STA (14:15)
--- NOTE | 2022-12-22 14:20 | CT ---
EXAMINATION TYPE: CT hip RT wo con CT DLP: 451.2 mGycm, Automated exposure control for dose reduction was used. DATE OF EXAM: 12/22/2022 1:55 PM COMPARISON: None CLINICAL INDICATION:Female, 67 years old with history of Pain after fall, Right hip pain after fall. TECHNIQUE: Axial images were obtained of the right and . Additional coronal and sagittal reformatted images and soft tissue and bone window were obtained for review. 3-D reconstruction was created on a separate workstation. Contrast used: None Oral contrast used: None FINDINGS: Right hip arthroplasty changes. Hardware appears intact. No evidence referring prosthetic f racture. Persist portions of the pelvis and other osseous structures are intact. No evidence for orga nizing fluid collection. Visualized portions of the abdomen demonstrate no evidence for acute process . IMPRESSION: Right hip prosthesis. Hardware appears intact. No evidence for fracture.
[2022-12-22] MEDS ORDERED: HYDROcodone/APAP 7.5-325MG 1 EACH TAB PO ONE (15:15)
[2022-12-22] MEDS ORDERED: MORPHINE SULFATE 2 MG/ML SYRINGE IVP STA (16:55)
[2022-12-22] MEDS ORDERED: ACETAMINOPHEN TAB 325 MG TAB PO PRN (17:38)
[2022-12-22] MEDS ORDERED: MORPHINE SULFATE 4 MG/ML SYRINGE IV PRN (17:38)
[2022-12-22] MEDS ORDERED: NALOXONE 0.4 MG/ML 1 ML VIAL IV PRN (17:38)
[2022-12-22] MEDS ORDERED: IBUPROFEN 400 MG TAB PO PRN (17:38)
[2022-12-22] MEDS ORDERED: ONDANSETRON 4 MG/2 ML VIAL IVP PRN (17:38)
[2022-12-22 17:48] LABS: Basophils % (A) 0 %; Eosinophils # (A) 0.6 k/uL (0-0.7); Eosinophils % (A) 10 %; HCT 28.7 % (34.0-46.0); HGB 9.8 gm/dL (11.4-16.0); Lymphocytes # (A) 0.8 k/uL (1.0-4.8); Lymphocytes % (A) 13 %; MCH 35.9 pg (25.0-35.0); MCHC 34.1 g/dL (31.0-37.0); MCV 105.4 fL (80.0-100.0); Macrocytosis Moderate; Mean Platelet Volume 8.5; Monocytes # (A) 0.2 k/uL (0-1.0); Monocytes % (A) 4 %; Neutrophils # (A) 4.1 k/uL (1.3-7.7); Neutrophils % (A) 72 %; Platelet Count 113 k/uL (150-450); RBC 2.72 m/uL (3.80-5.40); RDW 14.4 % (11.5-15.5); WBC 5.6 k/uL (3.8-10.6)
[2022-12-22 17:57] LABS: ALT 17 U/L (4-34); AST 30 U/L (14-36); African American GFR (CKD) >90 (>60 ml/min/1.73 sqM); Albumin 3.6 g/dL (3.5-5.0); Alkaline Phosphatase 107 U/L (38-126); Anion Gap 6 mmol/L; Blood Urea Nitrogen 21 mg/dL (7-17); Calcium 8.5 mg/dL (8.4-10.2); Carbon Dioxide 23 mmol/L (22-30); Chloride 100 mmol/L (98-107); Glucose 98 mg/dL (74-99); Non-African American GFR(CKD) >90 (>60 ml/min/1.73 sqM); Potassium 4.2 mmol/L (3.5-5.1); Sodium 129 mmol/L (137-145); Total Bilirubin 0.9 mg/dL (0.2-1.3); Total Protein 6.2 g/dL (6.3-8.2)
[2022-12-22] MEDS ORDERED: SODIUM CHLORIDE 0.9% 1,000 ML IV STA (17:58)
[2022-12-22] MEDS ORDERED: CARBIDOPA-LEVODOPA 25-100 MG 1 EACH TAB PO STA (19:45)
[2022-12-22] MEDS: CARBIDOPA-LEVODOPA 25-100 MG 1 EACH TAB PO SCH (21:30)
--- NOTE | 2022-12-22 21:31 | P.HPIM ---
History of Present Illness H&P Date: 12/22/22 Chief Complaint: Fall/hip pain 67-year-old female, history of hypertension, presents to the emergency department for a fall. Patient was walking around in her yard this morning, when she tripped and fell, landing on her right hip. Denies hitting her head or sustaining any other injuries. She is not taking any blood thinners. Patient is shaking in the examination room, which she states is normal for her secondary to tremors. X-ray of the right hip obtained; no acute fractures or dislocations. CT scan of the right hip was obtained; right hip prosthesis; heart rate appears intact; no acute fractures Blood work completed reveals WBC of 5.6, hemoglobin of 9.8, platelet count of 113, sodium 129, potassium 4.2, BUN/creatinine of 21/0.46 -- Patient was unable to bear any weight on right leg and unable to ambulate; she is being admitted for further orthopedic evaluation Review of Systems REVIEW OF SYSTEMS: CONSTITUTIONAL: No fever, no malaise, no fatigue. HEENT: No recent visual problems or hearing problems. Denied any sore throat. CARDIOVASCULAR: No chest pain, orthopnea, PND, no palpitations, no syncope. PULMONARY: No shortness of breath, no cough, no hemoptysis. GASTROINTESTINAL: No diarrhea, no nausea, no vomiting, no abdominal pain. NEUROLOGICAL: No headaches, no weakness, no numbness. HEMATOLOGICAL: Denies any bleeding or petechiae. GENITOURINARY: Denies any burning micturition, frequency, or urgency. MUSCULOSKELETAL/RHEUMATOLOGICAL: Denies any joint pain, swelling, or any muscle pain. ENDOCRINE: Denies any polyuria or polydipsia. The rest of the 14-point review of systems is negative. Past Medical History Past Medical History: Hypertension Additional Past Medical History / Comment(s): anemia, essential tremors, hiatal hernia. 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 Bone Marrow BX october 2020 Past Anesthesia/Blood Transfusion Reactions: No Reported Reaction Past Psychological History: No Psychological Hx Reported Smoking Status: Never smoker Past Alcohol Use History: None Reported Past Drug Use History: None Reported - Past Family History Mother Family Medical History: No Reported History Brother(s) Family Medical History: Cancer Additional Family Medical History / Comment(s): nonHodgkin's Lymphoma Medications and Allergies Home Medications Medication Instructions Recorded Confirmed Type lisinopriL [Zestril] 10 mg PO DAILY 06/07/18 12/22/22 History Ascorbic Acid [Vitamin C] 1,000 mg PO DAILY 11/20/22 12/22/22 History Brimonidine Tartrate/Timolol 1 drop RIGHT EYE BID 11/20/22 12/22/22 History [Brimonidine-Timolol 0.2%-0.5%] Cholecalciferol [Vitamin D3 (25 25 mcg PO DAILY 11/20/22 12/22/22 History Mcg = 1000 Iu)] Netarsudil Mesylat/Latanoprost 1 drop BOTH EYES HS 11/20/22 12/22/22 History [Rocklatan 0.02%-0.005% Eye Drp] Vitamin B Complex 1 cap PO DAILY 11/20/22 12/22/22 History Aspirin 81 mg PO DAILY #30 tab 11/25/22 12/22/22 Rx Metoprolol Succinate (ER) [Toprol 12.5 mg PO BID #30 tab 11/25/22 12/22/22 Rx XL] Carbidopa-Levodopa 25-100 mg 1 tab PO TID 12/22/22 12/22/22 History [Sinemet 25-100 mg] Omeprazole 20 mg PO DAILY 12/22/22 12/22/22 History Allergies Allergy/AdvReac Type Severity Reaction Status Date / Time No Known Allergies Allergy Verified 12/22/22 18:03 Physical Exam Vitals: Vital Signs Temp Pulse Resp BP Pulse Ox 12/22/22 17:04 89 18 129/82 95 12/22/22 14:24 91 18 117/77 96 12/22/22 12:34 97.6 F 77 18 117/83 95 Intake and Output 12/22/22 12/22/22 12/22/22 06:59 14:59 22:59 Other: Weight 57.153 kg General appearance: alert, in no apparent distress Head exam: Present: atraumatic, normocephalic, normal inspection Respiratory exam: Present: normal lung sounds bilaterally. Absent: respiratory distress, wheezes, rales, rhonchi, stridor Cardiovascular Exam: Present: regular rate, normal rhythm, normal heart sounds. Absent: systolic murmur, diastolic murmur, rubs, gallop, clicks Extremities exam: Present: other (Tenderness to palpation over the right greater trochanter. Limited range of motion of the right lower extremity secondary to pain. No rotation or shortening. 2+ DP and PT pulses. Capillary refill less than 1 second.) Neurological exam: Present: alert, oriented X3, CN II-XII intact Psychiatric exam: Present: normal affect, normal mood Skin exam: Present: warm, dry, intact, normal color. Absent: rash Results CBC & Chem 7: 12/22/22 17:28 12/22/22 17:28 Labs: Abnormal Lab Results - Last 24 Hours (Table) 12/22/22 12/22/22 Range/Units 17:28 17:28 RBC 2.72 L (3.80-5.40) m/uL Hgb 9.8 L (11.4-16.0) gm/dL Hct 28.7 L (34.0-46.0) % MCV 105.4 H (80.0-100.0) fL MCH 35.9 H (25.0-35.0) pg Plt Count 113 L (150-450) k/uL Lymphocytes # 0.8 L (1.0-4.8) k/uL Sodium 129 L (137-145) mmol/L BUN 21 H (7-17) mg/dL Creatinine 0.46 L (0.52-1.04) mg/dL Total Protein 6.2 L (6.3-8.2) g/dL Assessment and Plan Assessment: 1. Mechanical fall/right hip pain - Right hip x-ray and CT scan completed reveals prosthesis/hardware intact; no acute fracture seen - Patient is unable to bear any weight or ambulate despite pain medication - We will admit patient for further orthopedic evaluation - Consult PT/OT - Pain control 2. Hyponatremia; etiology unclear; we will obtain serum and urine osmolality, urine sodium level; monitor sodium levels closely and place patient on fluid restriction if continues to drop 3. Hypertension; Zestril 10 mg daily; metoprolol 25 mg daily 4. Vitamin D deficiency; vitamin D3 25 MCG daily 5. Essential tremors; patient takes Sinemet 08848 one tablet 3 times a day 6. Gastroesophageal reflux disease; Protonix 40 mg daily DVT prophylaxis; SCDs CODE STATUS; full code
[2022-12-22] MEDS: NON FORMULARY DRUG (Netarsudil Mesylat/Latanoprost [Rocklatan 0.02%-0.005% Eye Drp] 2.5 ML BOTH EYES SCH (22:15)
[2022-12-22] MEDS: NON FORMULARY DRUG (Brimonidine Tartrate/Timolol [Brimonidine-Timolol 0.2%-0.5%] 5 ML Drop RIGHT EYE SCH (22:15)
[2022-12-22] MEDS: METOPROLOL SUCCINATE (ER) 25 MG TAB.ER.24H PO SCH (22:18)
[2022-12-22] MEDS: HYDROcodone/APAP 5-325MG 1 EACH TAB PO PRN (22:18)
[2022-12-23] MEDS: HYDROcodone/APAP 5-325MG 1 EACH TAB PO PRN ×3 (06:38→20:57)
[2022-12-23] MEDS: FOLIC ACID-VIT B COMPLEX-VIT C 1 CAP PO SCH (08:38)
[2022-12-23] MEDS: ASCORBIC ACID 500 MG TAB PO SCH (08:38)
[2022-12-23] MEDS: CARBIDOPA-LEVODOPA 25-100 MG 1 EACH TAB PO SCH ×3 (08:39→20:58)
[2022-12-23] MEDS: ASPIRIN 81 MG PO SCH (08:39)
[2022-12-23] MEDS: CHOLECALCIFEROL 25 MCG (1000 IU) TABLET PO SCH (08:40)
[2022-12-23] MEDS: METOPROLOL SUCCINATE (ER) 25 MG TAB.ER.24H PO SCH ×2 (08:40→20:57)
[2022-12-23] MEDS: PANTOPRAZOLE 40 MG TABLET PO SCH (08:40)
[2022-12-23 09:09] LABS: BUN/Creat Ratio 38.83 Ratio (12.00-20.00); Blood Urea Nitrogen 23.3 mg/dL (9.0-27.0); Calcium 8.4 mg/dL (8.7-10.3); Carbon Dioxide 22.6 mmol/L (21.6-31.8); Chloride 103 mmol/L (96-109); Glucose 80 mg/dL (70-110); Potassium 4.3 mmol/L (3.5-5.5); Sodium 137 mmol/L (135-145)
[2022-12-23] MEDS: NON FORMULARY DRUG (Brimonidine Tartrate/Timolol [Brimonidine-Timolol 0.2%-0.5%] 5 ML Drop RIGHT EYE SCH ×2 (09:41→20:58)
--- NOTE | 2022-12-23 09:53 | P.CNOR ---
History of Present Illness - [facility] Consult date: 12/23/22 Consult reason: other (Right hip pain) History of present illness: The patient is a 67-year-old female with a recent diagnosis of Parkinson's, who presented to the emergency department yesterday after sustaining a fall at home outside. She is status post right hip hemiarthroplasty by Dr. Tom Paul in April 2021. She states that she was doing well but uses a walker at home after surgery. The patient was in skilled rehab after a possible stroke and was discharged home recently. She states that her pain is on the lateral side of the right hip and does radiate to her buttock area and she is also having pain to her left buttock area. The patient states that she did fall on her right side. No other injuries noted. She is able to lift her left leg off the bed but has a hard time with the right side and also she has severe pain with ambulation on the right side. X-rays and CT in the emergency department of the right hip were negative for fracture. There is a question on x-ray of a possible hematoma but nothing was noted in the CT report. Orthopedics was consulted for further evaluation and care Review of Systems Constitutional: Denies chills, Denies fatigue, Denies fever Cardiovascular: Denies chest pain, Denies shortness of breath Gastrointestinal: Denies diarrhea, Denies nausea, Denies vomiting Musculoskeletal: right: hip pain, hip stiffness, hip swelling Past Medical History Past Medical History: Hypertension Additional Past Medical History / Comment(s): anemia, essential tremors, hiatal hernia. 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 Bone Marrow BX october 2020 Past Anesthesia/Blood Transfusion Reactions: No Reported Reaction Past Psychological History: No Psychological Hx Reported Smoking Status: Never smoker Past Alcohol Use History: None Reported Past Drug Use History: None Reported - Past Family History Mother Family Medical History: No Reported History Brother(s) Family Medical History: Cancer Additional Family Medical History / Comment(s): nonHodgkin's Lymphoma Medications and Allergies Home Medications Medication Instructions Recorded Confirmed Type lisinopriL [Zestril] 10 mg PO DAILY 06/07/18 12/22/22 History Ascorbic Acid [Vitamin C] 1,000 mg PO DAILY 11/20/22 12/22/22 History Brimonidine Tartrate/Timolol 1 drop RIGHT EYE BID 11/20/22 12/22/22 History [Brimonidine-Timolol 0.2%-0.5%] Cholecalciferol [Vitamin D3 (25 25 mcg PO DAILY 11/20/22 12/22/22 History Mcg = 1000 Iu)] Netarsudil Mesylat/Latanoprost 1 drop BOTH EYES HS 11/20/22 12/22/22 History [Rocklatan 0.02%-0.005% Eye Drp] Vitamin B Complex 1 cap PO DAILY 11/20/22 12/22/22 History Aspirin 81 mg PO DAILY #30 tab 11/25/22 12/22/22 Rx Metoprolol Succinate (ER) [Toprol 12.5 mg PO BID #30 tab 11/25/22 12/22/22 Rx XL] Carbidopa-Levodopa 25-100 mg 1 tab PO TID 12/22/22 12/22/22 History [Sinemet 25-100 mg] Omeprazole 20 mg PO DAILY 12/22/22 12/22/22 History Allergies Allergy/AdvReac Type Severity Reaction Status Date / Time No Known Allergies Allergy Verified 12/22/22 18:03 Physical Examination The patient is a 67-year-old female in no acute distress. She is alert and oriented 3. Exam of the right hip reveals no obvious bruising and a healed incision to the lateral hip. There is pain upon palpation to the lateral hip. No pain upon internal and external rotation of the hip joint. No knee pain. Positive straight leg raise on the right. No pain upon palpation to the lumbar spine. There is pain to the superior buttock area bilaterally. Calves are soft and nontender. Good foot and ankle motion. Neurological and circulatory status is intact. Results Right hip x-ray and CT were negative for fracture. Hardware is in a good position no dislocation. - Labs Labs: Abnormal Lab Results - Last 24 Hours (Table) 12/22/22 12/22/22 12/23/22 Range/Units 17:28 17:28 05:46 RBC 2.72 L (3.80-5.40) m/uL Hgb 9.8 L (11.4-16.0) gm/dL Hct 28.7 L (34.0-46.0) % MCV 105.4 H (80.0-100.0) fL MCH 35.9 H (25.0-35.0) pg Plt Count 113 L (150-450) k/uL Lymphocytes # 0.8 L (1.0-4.8) k/uL Sodium 129 L (137-145) mmol/L BUN 21 H (7-17) mg/dL Creatinine 0.46 L (0.52-1.04) mg/dL BUN/Creatinine Ratio 38.83 H (12.00-20.00) Ratio Calcium 8.4 L (8.7-10.3) mg/dL Total Protein 6.2 L (6.3-8.2) g/dL H & H 12/22/22 Range/Units 17:28 Hgb 9.8 L (11.4-16.0) gm/dL Hct 28.7 L (34.0-46.0) % Result Diagrams: 12/22/22 17:28 12/23/22 05:46 Assessment and Plan (1) Inability to ambulate due to right hip Current Visit: Yes Status: Acute Code(s): R26.2 - DIFFICULTY IN WALKING, NOT ELSEWHERE CLASSIFIED SNOMED Code(s): 932468604 (2) Right hip pain Current Visit: Yes Status: Acute Code(s): M25.551 - PAIN IN RIGHT HIP SNOMED Code(s): 91836825 (3) Fall Current Visit: No Status: Acute Code(s): W19.XXXA - UNSPECIFIED FALL, INITIAL ENCOUNTER SNOMED Code(s): 0184997 (4) S/P hip hemiarthroplasty Current Visit: No Status: Acute Code(s): Z96.649 - PRESENCE OF UNSPECIFIED ARTIFICIAL HIP JOINT SNOMED Code(s): 518942208 Plan: The clinical and diagnostic findings were discussed with the patient. The case was discussed at length with Dr. Collazo. The patient does not have evidence of a periprosthetic fracture. Due to the patient's buttock pain and weakness in the right leg, x-rays of the lumbar spine will be obtained today. Continue pain control. PT and OT have been ordered. We'll continue to follow patient closely and make further recommendations as needed.
--- NOTE | 2022-12-23 10:21 | XR ---
EXAMINATION TYPE: XR lumbar spine 2 or 3V DATE OF EXAM: 12/23/2022 10:13 AM INDICATION: Patient age:Female; 67 years old; Reason for study: low back pain, buttock pain s/p fall; PHH. COMPARISON: None TECHNIQUE: Frontal, lateral and coned in L5-S1 lateral views of the spine. FINDINGS: No evidence of any acute osseous pathology. Concave deformity to the superior endplates at multiple levels. There is normal alignment of the lumbar vertebral bodies. Mild scattered disc space narrowing. Multilevel marginal osteophyte formation throughout the visualized spine. There is facet j oint arthropathy throughout the spine. Scattered at least mild neural foraminal stenosis worse at L5- S1. Arthroplasty changes of the hip partially visualized on lateral view. IMPRESSION: 1. No acute fracture. 2. Mild to moderate multilevel disc degeneration.
[2022-12-23] MEDS: lisinopriL 10 MG TAB PO SCH (11:00)
[2022-12-23] MEDS: NON FORMULARY DRUG (Netarsudil Mesylat/Latanoprost [Rocklatan 0.02%-0.005% Eye Drp] 2.5 ML BOTH EYES SCH (20:58)
[2022-12-24] MEDS: HYDROcodone/APAP 5-325MG 1 EACH TAB PO PRN ×3 (04:21→15:34)
--- NOTE | 2022-12-24 06:15 | P.PN ---
Subjective Progress Note Date: 12/23/22 67-year-old female, history of hypertension, presents to the emergency department for a fall. Patient was walking around in her yard this morning, when she tripped and fell, landing on her right hip. Denies hitting her head or sustaining any other injuries. She is not taking any blood thinners. Patient is shaking in the examination room, which she states is normal for her secondary to tremors. X-ray of the right hip obtained; no acute fractures or dislocations. CT scan of the right hip was obtained; right hip prosthesis; heart rate appears intact; no acute fractures Blood work completed reveals WBC of 5.6, hemoglobin of 9.8, platelet count of 113, sodium 129, potassium 4.2, BUN/creatinine of 21/0.46 -- Patient was unable to bear any weight on right leg and unable to ambulate; she is being admitted for further orthopedic evaluation 12/23/2022 Patient is seen and evaluated in follow-up with orthopedics following. Underwent lumbar x-ray which was negative for fracture. Patient continues to have pain in her right hip and significant weakness awaiting PT/OT therapy evaluation. Patient reports she was just at physical therapy and went home and was attempting her 3 steps and on the third step lost balance and fell landing directly on her right hip. Will await PT/OT therapy evaluation and discuss further with social work about discharge planning. Patient is afebrile with no reports of chest pain or shortness of breath. Patient is tolerating diet with no reported nausea or vomiting. Review of systems: Constitutional: No reports of fatigue, fever, or chills Cardiovascular: No reports of chest pain or palpitations Respiratory: No reports of shortness of breath or cough GI: No reports of nausea, vomiting, or diarrhea : No reports of dysuria or retention Neurovascular: No reports of weakness or numbness All medications have been reviewed Physical exam: General appearance: alert, in no apparent distress, thin built, well-developed, appears elderly Head exam: Present: atraumatic, normocephalic, normal inspection Respiratory exam: normal lung sounds bilaterally with no wheezing or rhonchi noted. Cardiovascular Exam:regular rate, normal rhythm, normal heart sounds. Extremities exam: other (Tenderness to palpation over the right greater trochanter. Limited range of motion of the right lower extremity secondary to pain. No rotation or shortening. 2+ DP and PT pulses. Capillary refill less than 1 second.) Neurological exam: alert, oriented X3, CN II-XII intact, tremoring noted possibly secondary to Parkinson's Psychiatric exam: normal affect, normal mood Skin exam: warm, dry, intact, normal color. No rash or lesions noted Assessment: -Mechanical fall/right hip pain -Right hip reveals prosthesis/hardware intact; no acute fracture seen -Gait dysfunction - Mild protein calorie malnutrition with a BMI of 21.0 -Hyponatremia; etiology unclear; -Hypertension history -Vitamin D deficiency -Essential tremors -Gastroesophageal reflux disease -DVT prophylaxis; SCDs -GI prophylaxis -full code Plan: Patient was seen and evaluated by orthopedics with no plans for surgical intervention. No fractures noted although patient continues with pain and inability to ambulate History will have physical therapy evaluate the patient Case management/also were consulted to discuss possible ECF Encouraged oral intake Encouraged increased activity as tolerated The impression and plan of care has been dictated by Ellyn Titus, Nurse Practitioner as directed. Dr. Ena MD I have performed a history and examination and MDM of this patient, discussed the same with the dictator, and agree with the dictator's assessment and plan as written ,documented as a scribe. Based on total visit time, I have performed more than 50% of the visit. Objective - Vital Signs Vital signs: Vital Signs Temp 98.2 F 12/23/22 15:00 Pulse 88 12/23/22 15:00 Resp 16 12/23/22 15:00 BP 105/53 12/23/22 15:00 Pulse Ox 91 L 12/23/22 15:00 FiO2 Intake & Output 12/22/22 12/23/22 12/23/22 18:59 06:59 18:59 Intake Total 210 Output Total 400 Balance -190 Weight 57.153 kg 57.153 kg Intake: Oral 210 Output: Urine 400 Other: # Voids 1 0 - Labs CBC & Chem 7: 12/22/22 17:28 12/23/22 05:46 Labs: Abnormal Lab Results - Last 24 Hours (Table) 12/22/22 12/22/22 12/23/22 Range/Units 17:28 17:28 05:46 RBC 2.72 L (3.80-5.40) m/uL Hgb 9.8 L (11.4-16.0) gm/dL Hct 28.7 L (34.0-46.0) % MCV 105.4 H (80.0-100.0) fL MCH 35.9 H (25.0-35.0) pg Plt Count 113 L (150-450) k/uL Lymphocytes # 0.8 L (1.0-4.8) k/uL Sodium 129 L (137-145) mmol/L BUN 21 H (7-17) mg/dL Creatinine 0.46 L (0.52-1.04) mg/dL BUN/Creatinine Ratio 38.83 H (12.00-20.00) Ratio Calcium 8.4 L (8.7-10.3) mg/dL Total Protein 6.2 L (6.3-8.2) g/dL
[2022-12-24] MEDS: CHOLECALCIFEROL 25 MCG (1000 IU) TABLET PO SCH (08:28)
[2022-12-24] MEDS: ASCORBIC ACID 500 MG TAB PO SCH (08:28)
[2022-12-24] MEDS: ASPIRIN 81 MG PO SCH (08:28)
[2022-12-24] MEDS: NON FORMULARY DRUG (Brimonidine Tartrate/Timolol [Brimonidine-Timolol 0.2%-0.5%] 5 ML Drop RIGHT EYE SCH ×2 (08:28→20:45)
[2022-12-24] MEDS: PANTOPRAZOLE 40 MG TABLET PO SCH (08:28)
[2022-12-24] MEDS: CARBIDOPA-LEVODOPA 25-100 MG 1 EACH TAB PO SCH ×3 (08:28→20:44)
[2022-12-24] MEDS: FOLIC ACID-VIT B COMPLEX-VIT C 1 CAP PO SCH (08:28)
[2022-12-24] MEDS: METOPROLOL SUCCINATE (ER) 25 MG TAB.ER.24H PO SCH ×2 (08:29→20:44)
[2022-12-24] MEDS: lisinopriL 10 MG TAB PO SCH (08:29)
--- NOTE | 2022-12-24 09:57 | P.PN ---
Subjective Progress Note Date: 12/24/22 Principal diagnosis: Right hip pain The patient is a 67-year-old female with a recent diagnosis of Parkinson's, who presented to the emergency department yesterday after sustaining a fall at home outside. She is status post right hip hemiarthroplasty by Dr. Tom Paul in April 2021. She states that she was doing well but uses a walker at home after surgery. The patient was in skilled rehab after a possible stroke and was discharged home recently. She states that her pain is on the lateral side of the right hip and does radiate to her buttock area and she is also having pain to her left buttock area. The patient states that she did fall on her right side. No other injuries noted. She is able to lift her left leg off the bed but has a hard time with the right side and also she has severe pain with ambulation on the right side. X-rays and CT in the emergency department of the right hip were negative for fracture. There is a question on x-ray of a possib le hematoma but nothing was noted in the CT report. Orthopedics was consulted for further evaluation and care. Today, the patient was evaluated in the recliner chair. She states the pain in her buttocks and right hip continues. She was able to ambulate a short distance with a walker and assistance. Objective - Vital Signs Vital signs: Vital Signs Temp 98.6 F 12/24/22 07:00 Pulse 65 12/24/22 07:00 Resp 18 12/24/22 07:00 BP 95/56 12/24/22 07:00 Pulse Ox 92 L 12/24/22 07:00 FiO2 Intake & Output 12/23/22 12/24/22 12/24/22 18:59 06:59 18:59 Intake Total 330 Output Total 800 Balance -470 Intake: Oral 330 Output: Urine 800 Other: # Voids 1 1 - Exam The patient is a 67-year-old female in no acute distress. She is alert and oriented 3. Exam of the right hip reveals no obvious bruising and a healed incision to the lateral hip. There is pain upon palpation to the lateral hip. No pain upon internal and external rotation of the hip joint. No knee pain. Positive straight leg raise on the right. No pain upon palpation to the lumbar spine. There is pain to the superior buttock area bilaterally. Calves are soft and nontender. Good foot and ankle motion. Neurological and circulatory status is intact. - Labs CBC & Chem 7: 12/22/22 17:28 12/23/22 05:46 Assessment and Plan (1) Inability to ambulate due to right hip Current Visit: Yes Status: Acute Code(s): R26.2 - DIFFICULTY IN WALKING, NOT ELSEWHERE CLASSIFIED SNOMED Code(s): 507384870 (2) Right hip pain Current Visit: Yes Status: Acute Code(s): M25.551 - PAIN IN RIGHT HIP SNOMED Code(s): 68220606 (3) Fall Current Visit: No Status: Acute Code(s): W19.XXXA - UNSPECIFIED FALL, INITIAL ENCOUNTER SNOMED Code(s): 1712530 (4) S/P hip hemiarthroplasty Current Visit: No Status: Acute Code(s): Z96.649 - PRESENCE OF UNSPECIFIED ARTIFICIAL HIP JOINT SNOMED Code(s): 953418791 Plan: The clinical and diagnostic findings were discussed with the patient. The case was discussed at length with Dr. Collazo and Dr. Tom Paul. The patient does not have evidence of a periprosthetic or lumbar fractures. Continue pain control and PT/OT. She will likely need skilled rehab again. We will sign off at this time and she can follow up on an outpatient basis if pain continues.
[2022-12-24] MEDS: NON FORMULARY DRUG (Netarsudil Mesylat/Latanoprost [Rocklatan 0.02%-0.005% Eye Drp] 2.5 ML BOTH EYES SCH (20:44)
[2022-12-25] MEDS: HYDROcodone/APAP 5-325MG 1 EACH TAB PO PRN ×2 (04:52→11:20)
--- NOTE | 2022-12-25 06:20 | P.PN ---
Subjective Progress Note Date: 12/24/22 67-year-old female, history of hypertension, presents to the emergency department for a fall. Patient was walking around in her yard this morning, when she tripped and fell, landing on her right hip. Denies hitting her head or sustaining any other injuries. She is not taking any blood thinners. Patient is shaking in the examination room, which she states is normal for her secondary to tremors. X-ray of the right hip obtained; no acute fractures or dislocations. CT scan of the right hip was obtained; right hip prosthesis; heart rate appears intact; no acute fractures Blood work completed reveals WBC of 5.6, hemoglobin of 9.8, platelet count of 113, sodium 129, potassium 4.2, BUN/creatinine of 21/0.46 -- Patient was unable to bear any weight on right leg and unable to ambulate; she is being admitted for further orthopedic evaluation 12/23/2022 Patient is seen and evaluated in follow-up with orthopedics following. Underwent lumbar x-ray which was negative for fracture. Patient continues to have pain in her right hip and significant weakness awaiting PT/OT therapy evaluation. Patient reports she was just at physical therapy and went home and was attempting her 3 steps and on the third step lost balance and fell landing directly on her right hip. Will await PT/OT therapy evaluation and discuss further with social work about discharge planning. Patient is afebrile with no reports of chest pain or shortness of breath. Patient is tolerating diet with no reported nausea or vomiting. 12/24/2022 Patient is seen and evaluated in follow-up currently sitting up in the chair. Benny tran reports significant weakness and was evaluated by physical therapy today and having difficulty with ambulation. Patient also being evaluated by orthopedics as patient fell on her right hip arthroplasty and having significant weakness along with right hip pain. Plan is for ECF and social work to follow- up once patient has been evaluated by physical therapy. Currently afebrile with no reports of chest pain, shortness of breath, or palpitations. Patient is tolerating diet with no reported nausea or vomiting. Will follow up with social work once patient has been evaluated by physical therapy and discuss possible ECF. Review of systems: Constitutional: No reports of fatigue, fever, or chills Cardiovascular: No reports of chest pain or palpitations Respiratory: No reports of shortness of breath or cough GI: No reports of nausea, vomiting, or diarrhea : No reports of dysuria or retention Neurovascular: reports of generalized weakness and difficulty with ambulation All medications have been reviewed Physical exam: General appearance: alert, awake, oriented 3, thin built, well-developed, appears elderly Head exam: Present: atraumatic, normocephalic, normal inspection Respiratory exam: normal lung sounds bilaterally with no wheezing or rhonchi noted. Cardiovascular Exam:regular rate, normal rhythm, normal heart sounds. Extremities exam: other (Tenderness to palpation over the right greater trochanter. Limited range of motion of the right lower extremity secondary to pain. No rotation or shortening. 2+ DP and PT pulses. Capillary refill less than 1 second.) Neurological exam: alert, oriented X3, CN II-XII intact, tremoring noted possibly secondary to Parkinson's Psychiatric exam: normal affect, normal mood Skin exam: warm, dry, intact, normal color. No rash or lesions noted Assessment: -Mechanical fall/right hip pain -Right hip reveals recent right hip arthroplasty prosthesis/hardware intact; no acute fracture seen -Gait dysfunction - Mild protein calorie malnutrition with a BMI of 21.0 -Hyponatremia; etiology unclear; -Hypertension history -Vitamin D deficiency -Essential tremors -Gastroesophageal reflux disease -DVT prophylaxis; SCDs -GI prophylaxis -full code Plan: Patient was seen and evaluated by orthopedics with no plans for surgical intervention. No fractures noted although patient continues with pain and inability to ambulate History physical therapy evaluated the patient running ECF and patient is agreeable. Social work following and has submitted for insurance authorization which is currently pending Recommend PT/OT therapy daily Encouraged oral intake Encouraged increased activity as tolerated The impression and plan of care has been dictated by Ellyn Titus, Nurse Practitioner as directed. Dr. Devon MD I have performed a history and examination and MDM of this patient, discussed the same with the dictator, and agree with the dictator's assessment and plan as written ,documented as a scribe. Based on total visit time, I have performed more than 50% of the visit. Objective - Vital Signs Vital signs: Vital Signs Temp 98.2 F 12/24/22 14:23 Pulse 85 12/24/22 14:23 Resp 18 12/24/22 14:23 BP 114/63 12/24/22 14:23 Pulse Ox 94 L 12/24/22 14:23 FiO2 Intake & Output 12/24/22 12/24/22 12/25/22 06:59 18:59 06:59 Intake Total 330 Output Total 700 Balance -370 Intake: Oral 330 Output: Urine 700 Other: # Voids 1 1 - Labs CBC & Chem 7: 12/22/22 17:28 12/23/22 05:46
[2022-12-25 09:06] LABS: Blood Urea Nitrogen 11.5 mg/dL (9.0-27.0); Calcium 8.4 mg/dL (8.7-10.3); Carbon Dioxide 23.3 mmol/L (21.6-31.8); Chloride 106 mmol/L (96-109); Glucose 104 mg/dL (70-110); Magnesium 2.3 mg/dL (1.5-2.4); Sodium 138 mmol/L (135-145)
[2022-12-25 09:18] VITALS: PULSE 74
[2022-12-25] MEDS: FOLIC ACID-VIT B COMPLEX-VIT C 1 CAP PO SCH (09:26)
[2022-12-25] MEDS: ASCORBIC ACID 500 MG TAB PO SCH (09:26)
[2022-12-25] MEDS: PANTOPRAZOLE 40 MG TABLET PO SCH (09:26)
[2022-12-25] MEDS: CARBIDOPA-LEVODOPA 25-100 MG 1 EACH TAB PO SCH ×2 (09:26→15:18)
[2022-12-25] MEDS: ASPIRIN 81 MG PO SCH (09:26)
[2022-12-25] MEDS: lisinopriL 10 MG TAB PO SCH (09:26)
[2022-12-25] MEDS: METOPROLOL SUCCINATE (ER) 25 MG TAB.ER.24H PO SCH (09:26)
[2022-12-25] MEDS: CHOLECALCIFEROL 25 MCG (1000 IU) TABLET PO SCH (09:26)
[2022-12-25] MEDS: NON FORMULARY DRUG (Brimonidine Tartrate/Timolol [Brimonidine-Timolol 0.2%-0.5%] 5 ML Drop RIGHT EYE SCH (09:27)
--- NOTE | 2022-12-25 15:27 | P.DS ---
Providers Date of admission: 12/24/22 09:32 Attending physician: Valentina Pérez MD Consults: 12/22/22 17:40 Consult Physician Urgent Consulting Provider: Carla Collazo Consult Reason/Comments: Right hip pain after fall Do you want consulting provider notified?: Yes Primary care physician: Melina Santa Hospital Course: This patient was admitted with a fall and right hip pain present. The patient had a recent right hip hemiarthroplasty. PTOT was evaluated. Patient was being accepted for the rehab at the [facility] at this time. Patient also had multiple other medical issues including hypertension tremors possible Parkinson's which are mostly stable at this time. On exam vitals are stable cardio S1 and S2 normal respirator system clear to auscultation abdomen soft nontender nervous system no focal deficit Final diagnosis Mechanical fall right hip pain Recent right hip arthroplasty Mild protein calorie malnutrition Hyponatremia Hypertension Vitamin D deficiency Essential tremors GERD DVT prophylaxis GI prophylaxis Full code Discharge disposition The patient is being discharged in a stable condition with a guarded prognosis. Recommended to follow-up with the primary physician outpatient setting after discharge from [facility]. Total time taken taken 35 minutes Plan - Discharge Summary Discharge Rx Participant: No New Discharge Prescriptions: New Ibuprofen [Motrin] 200 mg PO Q6HR PRN tab PRN Reason: Mild Pain Or Fever > 100.5 Acetaminophen Tab [Tylenol] 650 mg PO Q6HR PRN tab PRN Reason: Mild Pain Or Fever > 100.5 HYDROcodone/APAP 5-325MG [[place] 5-325] 1 each PO Q4HR PRN #4 tab PRN Reason: Moderate Pain (Scale 4 To 6) Continue lisinopriL [Zestril] 10 mg PO DAILY Vitamin B Complex 1 cap PO DAILY Netarsudil Mesylat/Latanoprost [Rocklatan 0.02%-0.005% Eye Drp] 1 drop BOTH EYES HS Brimonidine Tartrate/Timolol [Brimonidine-Timolol 0.2%-0.5%] 1 drop RIGHT EYE BID Ascorbic Acid [Vitamin C] 1,000 mg PO DAILY Omeprazole 20 mg PO DAILY Carbidopa-Levodopa 25-100 mg [Sinemet 25-100 mg] 1 tab PO TID Cholecalciferol [Vitamin D3 (25 Mcg = 1000 Iu)] 25 mcg PO DAILY Aspirin 81 mg PO DAILY #30 tab Metoprolol Succinate (ER) [Toprol XL] 12.5 mg PO BID #30 tab Discharge Medication List lisinopriL [Zestril] 10 mg PO DAILY 06/07/18 [History] Ascorbic Acid [Vitamin C] 1,000 mg PO DAILY 11/20/22 [History] Brimonidine Tartrate/Timolol [Brimonidine-Timolol 0.2%-0.5%] 1 drop RIGHT EYE BID 11/20/22 [History] Cholecalciferol [Vitamin D3 (25 Mcg = 1000 Iu)] 25 mcg PO DAILY 11/20/22 [History] Netarsudil Mesylat/Latanoprost [Rocklatan 0.02%-0.005% Eye Drp] 1 drop BOTH EYES HS 11/20/22 [History] Vitamin B Complex 1 cap PO DAILY 11/20/22 [History] Aspirin 81 mg PO DAILY #30 tab 11/25/22 [Rx] Metoprolol Succinate (ER) [Toprol XL] 12.5 mg PO BID #30 tab 11/25/22 [Rx] Carbidopa-Levodopa 25-100 mg [Sinemet 25-100 mg] 1 tab PO TID 12/22/22 [History] Omeprazole 20 mg PO DAILY 12/22/22 [History] Acetaminophen Tab [Tylenol] 650 mg PO Q6HR PRN tab 12/25/22 [Rx] HYDROcodone/APAP 5-325MG [[place] 5-325] 1 each PO Q4HR PRN #4 tab 12/25/22 [Rx] Ibuprofen [Motrin] 200 mg PO Q6HR PRN tab 12/25/22 [Rx] Follow up Appointment(s)/Referral(s): Melina Santa MD [Primary Care Provider] - 1-2 days Tom Paul DO [Doctor of Osteopathic Medicine] - As Needed
[2022-12-25 15:29] VITALS: BP 94/62; RESP 19; TEMP 98.2
== END 2022-12-25 17:05 ==
LOC: EC 12:32 → 6NMEDSUR 21:16 → INTOOBSV 12-24 09:32 → OBSVTOIN 12-24 09:32 → UNDODISIN 12-25 17:05
PROVIDERS: ADMIT Internal Medicine; ATTEND Internal Medicine
DX: M25.551 Pain in right hip (principal); Z91.81 History of falling; Z96.641 Presence of right artificial hip joint; I10 Essential (primary) hypertension; E87.1 Hypo-osmolality and hyponatremia; E55.9 Vitamin D deficiency, unspecified; G25.0 Essential tremor; K21.9 Gastro-esophageal reflux disease without esophagitis; R26.2 Difficulty in walking, not elsewhere classified; E44.1 Mild protein-calorie malnutrition; Z68.21 Body mass index [BMI] 21.0-21.9, adult; Z79.899 Other long term (current) drug therapy
CPT/HCPCS: 96361 ×3; 96374; 96375; 99285; 36415; 97530; 97162; 97166; 84300; 83930 ×2; 80053; 80048 ×2; 83735; 85025; 83935; 72100; 73502; 73700; G0378 ×4; J2270; J1885

== ENCOUNTER → 2023-02-04 | Outpatient (CLI) | payer MEDICARE ==
--- NOTE | 2023-02-05 12:57 | NM ---
EXAMINATION TYPE: NM DatScan Brain SPECT DATE OF EXAM: 02/04/2023 COMPARISON: NONE HISTORY: Tremors TECHNIQUE: 10 drops of Lugol's solution was administered 1 hour prior to injection as a thyroid bloc natalie agent. After the administration of 4.44 mCi I-123 Ioflupane DaTscan. Images obtained 3 hours p ost injection. SPECT images of the brain were acquired with axial and coronal reconstructions. FINDINGS: The axial SPECT images demonstrate increased background activity and reduced activity withi n the bilateral striata. Z score analysis demonstrates abnormal score bilaterally ranging from -1.54 to -3.8. IMPRESSION: Abnormal appearance highly suggestive of idiopathic Parkinson's disease or Parkinsonian s yndrome.
== END | disposition home or self-care (01) ==
LOC: RADNMMAIN 10:19
PROVIDERS: ATTEND Psychiatry & Neurology Neurology
DX: G20.C Parkinsonism, unspecified (principal)
CPT/HCPCS: 78803; A9584

== ENCOUNTER 2024-10-19 12:19 | Inpatient (IN) | payer MEDICARE ==
--- NOTE | 2024-10-19 12:51 | ED ---
General Adult HPI - General Chief complaint: GI Bleed Stated complaint: Blood in Stool Time Seen by Provider: 10/19/24 12:40 Source: patient, RN notes reviewed, old records reviewed Mode of arrival: EMS Limitations: no limitations - History of Present Illness Initial comments: This is a 69-year-old female who presents to the emergency department complai hill of rectal bleeding x 2 this morning. Patient states she started having diarrhea this morning and she had to episodes of rectal bleeding she thought was a significant amount of blood. Patient states she did have some abdominal cramping. Patient denies lightheadedness or dizziness. Patient chest pain difficulty breathing shortness of breath or patient has palpitations. Patient denies any blood thinners. - Related Data Home Medications Medication Instructions Recorded Confirmed lisinopriL [Zestril] 10 mg PO DAILY 06/07/18 12/22/22 Ascorbic Acid [Vitamin C] 1,000 mg PO DAILY 11/20/22 12/22/22 Brimonidine Tartrate/Timolol 1 drop RIGHT EYE BID 11/20/22 12/22/22 [Brimonidine-Timolol 0.2%-0.5%] Cholecalciferol [Vitamin D3 (25 25 mcg PO DAILY 11/20/22 12/22/22 Mcg = 1000 Iu)] Netarsudil Mesylat/Latanoprost 1 drop BOTH EYES HS 11/20/22 12/22/22 [Rocklatan 0.02%-0.005% Eye Drp] Vitamin B Complex 1 cap PO DAILY 11/20/22 12/22/22 Carbidopa-Levodopa 25-100 mg 1 tab PO TID 12/22/22 12/22/22 [Sinemet 25-100 mg] Omeprazole 20 mg PO DAILY 12/22/22 12/22/22 Previous Rx's Medication Instructions Recorded Aspirin 81 mg PO DAILY #30 tab 11/25/22 Metoprolol Succinate (ER) [Toprol 12.5 mg PO BID #30 tab 11/25/22 XL] Acetaminophen Tab [Tylenol] 650 mg PO Q6HR PRN tab 12/25/22 HYDROcodone/APAP 5-325MG [Cadet 1 each PO Q4HR PRN #4 tab 12/25/22 5-325] Ibuprofen [Motrin] 200 mg PO Q6HR PRN tab 12/25/22 Allergies Allergy/AdvReac Type Severity Reaction Status Date / Time No Known Allergies Allergy Verified 10/19/24 12:42 Review of Systems ROS Statement: Those systems with pertinent positive or pertinent negative responses have been documented in the HPI. ROS Other: All systems not noted in ROS Statement are negative. Past Medical History Past Medical History: Hypertension Additional Past Medical History / Comment(s): anemia, essential tremors, hiatal hernia. 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 Bone Marrow BX october 2020 Past Anesthesia/Blood Transfusion Reactions: No Reported Reaction Past Psychological History: No Psychological Hx Reported Smoking Status: Never smoker Past Alcohol Use History: None Reported Past Drug Use History: None Reported - Past Family History Mother Family Medical History: No Reported History Brother(s) Family Medical History: Cancer Additional Family Medical History / Comment(s): nonHodgkin's Lymphoma General Exam - General Exam Comments Initial Comments: GENERAL: Patient is well-developed and well-nourished. Patient is nontoxic and well- hydrated and is in no acute distress. ENT: Neck is soft and supple. No significant lymphadenopathy is noted. Oropharynx is clear. Moist mucous membranes. Neck has full range of motion without eliciting any pain. EYES: The sclera were anicteric and conjunctiva were pink and moist. Extraocular movements were intact and pupils were equal round and reactive to light. Eyelids were unremarkable. PULMONARY: Unlabored respirations. Good breath sounds bilaterally. No audible rales rhonchi or wheezing was noted. CARDIOVASCULAR: There is a regular rate and rhythm without any murmurs gallops or rubs. ABDOMEN: Soft and nontender with normal bowel sounds. SKIN: Skin is clear with no lesions or rashes and otherwise unremarkable. NEUROLOGIC: Patient is alert and oriented x3. Cranial nerves II through XII are grossly intact. Motor and sensory are also intact. Normal speech, volume and content. Symmetrical smile. MUSCULOSKELETAL: Normal extremities with adequate strength and full range of motion. LYMPHATICS: No significant lymphadenopathy is noted PSYCHIATRIC: Normal psychiatric evaluation. Limitations: no limitations Course Vital Signs 10/19/24 10/19/24 12:38 13:05 Temperature 98.4 F Pulse Rate 86 90 Respiratory 18 18 Rate Blood Pressure 129/87 122/81 O2 Sat by Pulse 98 96 Oximetry Medical Decision Making - Medical Decision Making Was pt. sent in by a medical professional or institution (THIERNO Louie, COURT ASSISTANT, urgent care, hospital, or longterm...) When possible be specific @ -No Did you speak to anyone other than the patient for history (EMS, parent, family, police, friend...)? What history was obtained from this source @ -No Did you review nursing and triage notes (agree or disagree)? Why? @ -I reviewed and agree with nursing and triage notes Were old charts reviewed (outside hosp., previous admission, EMS record, old EKG, old radiological studies, urgent care reports/EKG's, longterm records)? Report findings @ -No old charts were reviewed Differential Diagnosis? @ -Differential GI Bleed: Esophageal varices, aortoenteric fistula, Adela-Britton, gastritis, peptic ulcer disease, diverticulosis, inflammatory bowel disease, hemorrhoids, fissure, colitis, malignancy, Meckel's diverticulum, this is not meant to be an all- inclusive list. EKG interpreted by me (3pts min.). @ -As above X-rays interpreted by me (1pt min.). @ -None done CT interpreted by me (1pt min.). @ -None done U/S interpreted by me (1pt. min.). @ -None done What testing was considered but not performed or refused? (CT, X-rays, U/S, labs)? Why? @ -None What meds were considered but not given or refused? Why? @ -None Did you discuss the management of the patient with other professionals (professionals i.e. THIERNO Louie, COURT ASSISTANT, lab, RT, psych nurse, child welfare social worker, clinical psychologist, teacher, patrol community service officer, manager case)? Give summary @ -I spoke with [facility] hospitalist and they agreed to admit the patient admit the patient recommending orders Was smoking cessation discussed for >3mins.? @ -No Was critical care preformed (if so, how long)? @ -No Were there social determinants of health that impacted care today? How? (Homelessness, low income, unemployed, alcoholism, drug addiction, transportation, low edu. Level, literacy, decrease access to med. care, retirement, rehab)? @ -No Was there de-escalation of care discussed even if they declined (Discuss DNR or withdrawal of care, Hospice)? DNR status @ -No What co-morbidities impacted this encounter? (DM, HTN, Smoking, COPD, CAD, Cancer, CVA, ARF, Chemo, Hep., AIDS, mental health diagnosis, sleep apnea, morbid obesity)? @ -None Was patient admitted / discharged? Hospital course, mention meds given and route, prescriptions, significant lab abnormalities, going to OR and other pertinent info. @ -Patient's hemoglobin was 10.7. Patient was stable throughout the ED stay. I spoke with the significant hospitalist admitted the patient wrote admitting orders and consulted GI I also repeated CBCs Undiagnosed new problem with uncertain prognosis? @ -No Drug Therapy requiring intensive monitoring for toxicity (Heparin, Nitro, Insulin, Cardizem)? @ -No Were any procedures done? @ -No Diagnosis/symptom? @ -GI bleed Acute, or Chronic, or Acute on Chronic? @ -Acute Uncomplicated (without systemic symptoms) or Complicated (systemic symptoms)? @ -Complicated Side effects of treatment? @ -No Exacerbation, Progression, or Severe Exacerbation? @ -No Poses a threat to life or bodily function? How? (Chest pain, USA, MD, pneumonia, PE, COPD, DKA, ARF, appy, cholecystitis, CVA, Diverticulitis, Homicidal, Suicidal, threat to staff... and all critical care pts) @ -Yes this could lead to hypoxia and endorgan dysfunction - Lab Data Result diagrams: 10/19/24 12:58 10/19/24 12:58 Lab Results 10/19/24 10/19/24 10/19/24 Range/Units 12:58 12:58 12:58 WBC 5.54 (4.50-10.00) 10*3/uL RBC 2.87 L (4.10-5.20) 10*6/uL Hgb 10.3 L (12.0-15.0) g/dL Hct 30.1 L (37.2-46.3) % MCV 104.9 H (80.0-97.0) fL MCH 35.9 H (27.0-32.0) pg MCHC 34.2 (32.0-37.0) g/dL Plt Count 100 L (140-440) 10*3/uL MPV 10.4 (9.5-12.2) fL Immature Gran % (Auto) 0.7 % Neutrophils % 77.0 % Lymphocytes % 17.9 % Monocytes % 4.2 % Eosinophils % 0.0 % Basophils % 0.2 % Immature Gran # 0.04 (0.00-0.04) 10*3/uL Neutrophils # 4.27 (1.80-7.70) 10*3/uL Lymphocytes # 0.99 (0.90-5.00) 10*3/uL Monocytes # 0.23 (0.20-1.00) 10*3/uL Eosinophils # 0.00 L (0.04-0.35) 10*3/uL Basophils # 0.01 (0.00-0.10) 10*3/uL APTT 22.4 (22.0-30.0) sec Sodium 138 (137-145) mmol/L Potassium 4.4 (3.5-5.1) mmol/L Chloride 106 (98-107) mmol/L Carbon Dioxide 22 (22-30) mmol/L Anion Gap 10 mmol/L BUN 24 H (7-17) mg/dL Creatinine 0.61 (0.52-1.04) mg/dL Est GFR (CKD-EPI)AfAm >90 (>60 ml/min/1.73 sqM) Est GFR (CKD-EPI)NonAf >90 (>60 ml/min/1.73 sqM) Glucose 116 H (74-99) mg/dL Plasma Lactic Acid Miguel A (0.7-2.0) mmol/L Calcium 9.3 (8.4-10.2) mg/dL Magnesium 2.1 (1.6-2.3) mg/dL Total Bilirubin 0.8 (0.2-1.3) mg/dL AST 21 (14-36) U/L ALT <6 (4-34) U/L Alkaline Phosphatase 66 (38-126) U/L Troponin I (0.000-0.034) ng/mL Total Protein 6.9 (6.3-8.2) g/dL Albumin 4.4 (3.5-5.0) g/dL Blood Type Blood Type Recheck Bld Type Recheck Status Antibody Screen Spec Expiration Date 10/19/24 10/19/24 10/19/24 Range/Units 12:58 12:58 12:58 WBC (4.50-10.00) 10*3/uL RBC (4.10-5.20) 10*6/uL Hgb (12.0-15.0) g/dL Hct (37.2-46.3) % MCV (80.0-97.0) fL MCH (27.0-32.0) pg MCHC (32.0-37.0) g/dL Plt Count (140-440) 10*3/uL MPV (9.5-12.2) fL Immature Gran % (Auto) % Neutrophils % % Lymphocytes % % Monocytes % % Eosinophils % % Basophils % % Immature Gran # (0.00-0.04) 10*3/uL Neutrophils # (1.80-7.70) 10*3/uL Lymphocytes # (0.90-5.00) 10*3/uL Monocytes # (0.20-1.00) 10*3/uL Eosinophils # (0.04-0.35) 10*3/uL Basophils # (0.00-0.10) 10*3/uL APTT (22.0-30.0) sec Sodium (137-145) mmol/L Potassium (3.5-5.1) mmol/L Chloride (98-107) mmol/L Carbon Dioxide (22-30) mmol/L Anion Gap mmol/L BUN (7-17) mg/dL Creatinine (0.52-1.04) mg/dL Est GFR (CKD-EPI)AfAm (>60 ml/min/1.73 sqM) Est GFR (CKD-EPI)NonAf (>60 ml/min/1.73 sqM) Glucose (74-99) mg/dL Plasma Lactic Acid Miguel A 0.9 (0.7-2.0) mmol/L Calcium (8.4-10.2) mg/dL Magnesium (1.6-2.3) mg/dL Total Bilirubin (0.2-1.3) mg/dL AST (14-36) U/L ALT (4-34) U/L Alkaline Phosphatase (38-126) U/L Troponin I <0.012 (0.000-0.034) ng/mL Total Protein (6.3-8.2) g/dL Albumin (3.5-5.0) g/dL Blood Type O Positive Blood Type Recheck O Pos Bld Type Recheck Status No Antibody Screen NEGATIVE Spec Expiration Date 10/22/20242357 Disposition Clinical Impression: GI bleed, Anemia Disposition: ADMITTED IP TO THIS HOSP Referrals: Melina Santa MD [Primary Care Provider] - 1-2 days Time of Disposition: 14:24
[2024-10-19 13:17] LABS: Basophils # (A) 0.01 10*3/uL (0.00-0.10); Basophils % (A) 0.2 %; Eosinophils # (A) 0.00 10*3/uL (0.04-0.35); Eosinophils % (A) 0.0 %; HCT 30.1 % (37.2-46.3); HGB 10.3 g/dL (12.0-15.0); Lymphocytes # (A) 0.99 10*3/uL (0.90-5.00); Lymphocytes % (A) 17.9 %; MCH 35.9 pg (27.0-32.0); MCHC 34.2 g/dL (32.0-37.0); MCV 104.9 fL (80.0-97.0); Monocytes # (A) 0.23 10*3/uL (0.20-1.00); Monocytes % (A) 4.2 %; Neutrophils # (A) 4.27 10*3/uL (1.80-7.70); Neutrophils % (A) 77.0 %; Platelet Count 100 10*3/uL (140-440); RBC 2.87 10*6/uL (4.10-5.20); RDW 13.5 % (11.5-14.5); WBC 5.54 10*3/uL (4.50-10.00)
[2024-10-19 13:27] LABS: ALT <6 U/L (4-34); AST 21 U/L (14-36); African American GFR (CKD) >90 (>60 ml/min/1.73 sqM); Albumin 4.4 g/dL (3.5-5.0); Alkaline Phosphatase 66 U/L (38-126); Anion Gap 10 mmol/L; Blood Urea Nitrogen 24 mg/dL (7-17); Calcium 9.3 mg/dL (8.4-10.2); Carbon Dioxide 22 mmol/L (22-30); Chloride 106 mmol/L (98-107); Glucose 116 mg/dL (74-99); Magnesium 2.1 mg/dL (1.6-2.3); Non-African American GFR(CKD) >90 (>60 ml/min/1.73 sqM); Potassium 4.4 mmol/L (3.5-5.1); Sodium 138 mmol/L (137-145); Total Protein 6.9 g/dL (6.3-8.2)
[2024-10-19 14:59] LABS: Basophils # (A) 0.01 10*3/uL (0.00-0.10); Basophils % (A) 0.2 %; Eosinophils # (A) 0.01 10*3/uL (0.04-0.35); Eosinophils % (A) 0.2 %; HCT 28.7 % (37.2-46.3); HGB 10.0 g/dL (12.0-15.0); Lymphocytes # (A) 1.21 10*3/uL (0.90-5.00); Lymphocytes % (A) 24.2 %; MCH 36.4 pg (27.0-32.0); MCHC 34.8 g/dL (32.0-37.0); MCV 104.4 fL (80.0-97.0); Monocytes # (A) 0.23 10*3/uL (0.20-1.00); Monocytes % (A) 4.6 %; Neutrophils # (A) 3.54 10*3/uL (1.80-7.70); Neutrophils % (A) 70.6 %; RBC 2.75 10*6/uL (4.10-5.20); RDW 13.6 % (11.5-14.5); WBC 5.01 10*3/uL (4.50-10.00)
[2024-10-19] MEDS: SODIUM CHLORIDE 0.9% 1,000 ML IV ONE (15:02)
[2024-10-19 15:32] LABS: Platelet Count 99 10*3/uL (140-440)
[2024-10-19 23:05] LABS: Basophils # (A) 0.01 10*3/uL (0.00-0.10); Basophils % (A) 0.2 %; Eosinophils # (A) 0.00 10*3/uL (0.04-0.35); Eosinophils % (A) 0.0 %; HCT 29.1 % (37.2-46.3); HGB 9.7 g/dL (12.0-15.0); Lymphocytes # (A) 0.95 10*3/uL (0.90-5.00); Lymphocytes % (A) 18.7 %; MCH 35.4 pg (27.0-32.0); MCHC 33.3 g/dL (32.0-37.0); Monocytes # (A) 0.26 10*3/uL (0.20-1.00); Monocytes % (A) 5.1 %; Neutrophils # (A) 3.86 10*3/uL (1.80-7.70); Neutrophils % (A) 75.8 %; RBC 2.74 10*6/uL (4.10-5.20); RDW 13.8 % (11.5-14.5); WBC 5.09 10*3/uL (4.50-10.00)
[2024-10-19] MEDS: PANTOPRAZOLE 40 MG/10 ML VIAL IVP SCH (23:17)
[2024-10-19] MEDS: CARBIDOPA-LEVODOPA 25-100 MG 1 EACH TAB PO SCH (23:17)
[2024-10-20 00:11] LABS: MCV 106.2 fL (80.0-97.0)
[2024-10-20 00:12] LABS: Platelet Count 91 10*3/uL (140-440)
[2024-10-20] MEDS ORDERED: NON FORMULARY DRUG (Omeprazole [Omeprazole] 20 MG Capsule.Dr) PO SCH (09:30)
[2024-10-20 10:39] LABS: HCT 30.0 % (37.2-46.3); HGB 10.0 g/dL (12.0-15.0); MCH 36.0 pg (27.0-32.0); MCHC 33.3 g/dL (32.0-37.0); MCV 107.9 fL (80.0-97.0); Platelet Count 104 10*3/uL (140-440); RBC 2.78 10*6/uL (4.10-5.20); RDW 13.6 % (11.5-14.5); WBC 6.84 10*3/uL (4.50-10.00)
[2024-10-20 10:52] LABS: INR 1.1 (<1.2); Prothrombin Time 11.8 sec (10.0-12.5)
[2024-10-20 10:53] LABS: African American GFR (CKD) >90 (>60 ml/min/1.73 sqM); Anion Gap 11 mmol/L; Blood Urea Nitrogen 18 mg/dL (7-17); Calcium 9.2 mg/dL (8.4-10.2); Carbon Dioxide 23 mmol/L (22-30); Chloride 103 mmol/L (98-107); Glucose 107 mg/dL (74-99); Non-African American GFR(CKD) >90 (>60 ml/min/1.73 sqM); Potassium 3.8 mmol/L (3.5-5.1); Sodium 137 mmol/L (137-145)
[2024-10-20] MEDS: METOPROLOL SUCCINATE (ER) 25 MG TAB.ER.24H PO SCH (10:54)
[2024-10-20] MEDS: DORZOLAMIDE HCL 2% DROPS 10 ML BTL BOTH EYES SCH (10:55)
[2024-10-20] MEDS: BRIMONIDINE TARTRATE 0.2% DROPS 5 ML BTL BOTH EYES SCH (10:55)
[2024-10-20] MEDS: TIMOLOL 0.5% OPHTH DROPS 5 ML BTL BOTH EYES SCH (10:55)
--- NOTE | 2024-10-20 11:06 | P.CONS ---
History of Present Illness - Reason for Consult Consult date: 10/20/24 GI bleed Requesting physician: Ellyn Titus - Chief Complaint Bloody bowel movements - History of Present Illness This is a pleasant 69-year-old female who presented to the emergency department yesterday with complaints of watery diarrhea with dark blood x 2 episodes ye sterday. Past medical history includes chronic anemia, hypertension, essential tremors and MDS and follows with Dr. Godfrey. Denies any previous history of GI bleed. No previous history of blood transfusion. States that Friday she started having cramping in the evening followed by soft bowel movements but no blood. States then yesterday morning she had 2 episodes of cramping followed by watery diarrhea with dark blood. Since that time she has had no further bleeding or bowel movement. She denies any nausea or vomiting. No history of colonoscopy, has had a previous upper endoscopy which she reports was multiple years ago and she believes findings were for GERD. Patient was noted to have anemia on admission with thrombocytopenia with a hemoglobin of 10.3 platelet 100,000 and elevated BUN. Gastroenterology is consulted for GI bleed. No imaging available. Review of Systems REVIEW OF SYSTEMS: CARDIOPULMONARY: No chest pain or shortness of breath. Gastrointestinal: No abdominal pain. No nausea or vomiting. No hematemesis, coffee-ground emesis. Abdominal cramping and diarrhea for 3 days followed by diarrhea with dark blood. GENITOURINARY: No dysuria or hematuria. MUSCULOSKELETAL: Reports normal range of motion. SKIN: No rashes. No jaundice. ENDOCRINE: No chills, fevers. No excessive weight gain or loss. No polydipsia or polyuria. PSYCHIATRIC: Unremarkable. NEUROLOGY: No change in mental status. Denies dizziness, headache. Has essential tremors. ENT: Vision unremarkable. CONSTITUTIONAL: No recent weight loss. No fever, chills, night sweats. Past Medical History Past Medical History: Hypertension Additional Past Medical History / Comment(s): anemia, parkinson's, hiatal hernia. 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 Bone Marrow BX october 2020 Past Anesthesia/Blood Transfusion Reactions: No Reported Reaction Past Psychological History: No Psychological Hx Reported Smoking Status: Never smoker Past Alcohol Use History: None Reported Past Drug Use History: None Reported - Past Family History Mother Family Medical History: No Reported History Brother(s) Family Medical History: Cancer Additional Family Medical History / Comment(s): nonHodgkin's Lymphoma Medications and Allergies Home Medications Medication Instructions Recorded Confirmed Type lisinopriL [Zestril] 10 mg PO DAILY 06/07/18 10/19/24 History Brimonidine Tartrate/Timolol 1 drop BOTH EYES BID 11/20/22 10/19/24 History [Brimonidine-Timolol 0.2%-0.5%] Metoprolol Succinate (ER) [Toprol 12.5 mg PO BID #30 tab 11/25/22 10/19/24 Rx XL] Carbidopa-Levodopa 25-100 mg 1 tab PO TID 12/22/22 10/19/24 History [Sinemet 25-100 mg] Omeprazole 20 mg PO DAILY 12/22/22 10/19/24 History Dorzolamide HCl/Pf [Dorzolamide 2% 1 drop BOTH EYES BID 10/19/24 10/19/24 History Eye Drop] Latanoprost [Latanoprost 0.005%] 1 drop BOTH EYES HS 10/19/24 10/19/24 History Allergies Allergy/AdvReac Type Severity Reaction Status Date / Time No Known Allergies Allergy Verified 10/19/24 16:20 Physical Exam Vitals: Vital Signs Temp Pulse Pulse Resp BP BP Pulse Ox 10/20/24 07:00 98.5 F 72 16 105/64 96 10/20/24 01:47 16 10/20/24 01:35 98.2 F 78 16 90/58 99 10/19/24 22:03 98.2 F 85 17 123/73 95 10/19/24 19:41 98.7 F 79 18 96 10/19/24 16:58 87 17 132/78 99 10/19/24 16:15 85 18 130/78 99 10/19/24 13:05 90 18 122/81 96 10/19/24 12:38 98.4 F 86 18 129/87 98 Intake and Output 10/19/24 10/20/24 10/20/24 22:59 06:59 14:59 Other: Voiding Method Bedside Commode # Voids 1 1 Weight 67.132 kg General appearance: The patient is alert, oriented, appears in no acute distress. HET: Head is normocephalic and atraumatic. Conjunctiva pink. Sclera anicteric. Neck: Supple without lymphadenopathy. Trachea midline. Heart: Regular. Lungs: Equal expansion, normal respiratory effort. Abdomen: Soft, nontender, nondistended. Skin: No rashes. No jaundice. Extremities: Normal skin color and turgor. No pedal edema. Neurological: No focal deficits. Alert and oriented x3. Results CBC & Chem 7: 10/20/24 10:25 10/19/24 12:58 Labs: Abnormal Lab Results - Last 24 Hours (Table) 10/19/24 10/19/24 10/19/24 Range/Units 12:58 12:58 14:38 RBC 2.87 L 2.75 L (4.10-5.20) 10*6/uL Hgb 10.3 L 10.0 L (12.0-15.0) g/dL Hct 30.1 L 28.7 L (37.2-46.3) % MCV 104.9 H 104.4 H (80.0-97.0) fL MCH 35.9 H 36.4 H (27.0-32.0) pg Plt Count 100 L 99 L (140-440) 10*3/uL Eosinophils # 0.00 L 0.01 L (0.04-0.35) 10*3/uL BUN 24 H (7-17) mg/dL Glucose 116 H (74-99) mg/dL 10/19/24 Range/Units 22:56 RBC 2.74 L (4.10-5.20) 10*6/uL Hgb 9.7 L (12.0-15.0) g/dL Hct 29.1 L (37.2-46.3) % MCV 106.2 H (80.0-97.0) fL MCH 35.4 H (27.0-32.0) pg Plt Count 91 L (140-440) 10*3/uL Eosinophils # 0.00 L (0.04-0.35) 10*3/uL BUN (7-17) mg/dL Glucose (74-99) mg/dL Assessment and Plan (1) GI bleed Narrative/Plan: 69-year-old female presenting after 4 days of abdominal cramping followed by watery diarrhea yesterday with dark blood. Not on any anticoagulation. No furt her episodes however patient does have elevated BUN, unclear etiology. No imaging was ordered. Denies previous history of peptic ulcer disease however has had a previous EGD for nausea and decreased appetite many years ago with reported GERD. Need to consider possible upper GI bleed, will move forward with upper endoscopy for further evaluation. Current Visit: Yes Status: Acute Code(s): K92.2 - GASTROINTESTINAL HEM ORRHAGE, UNSPECIFIED SNOMED Code(s): 43645919 (2) Chronic anemia Current Visit: Yes Status: Acute Code(s): D64.9 - ANEMIA, UNSPECIFIED SNOMED Code(s): 635047675 (3) Thrombocytopenia Current Visit: Yes Status: Acute Code(s): D69.6 - THROMBOCYTOPENIA, UN SPECIFIED SNOMED Code(s): 079141633 (4) MDS (myelodysplastic syndrome) Current Visit: Yes Status: Acute Code(s): D46.9 - MYELODYSPLASTIC SYNDROME, UNSPECIFIED SNOMED Code(s): 704292463 Plan: 1. Continue symptomatic and supportive care 2. Keep n.p.o. 3. Repeat CBC, BMP, INR 4. Protonix 40 mg daily 5. Plan for upper endoscopy 6. Further recommendations forthcoming based on upper endoscopy findings 7. Rest of medical management per primary medical team Thank you for this consultation. Thank you for allowing us to participate in the care of the patient, the GI service will sign off, gastroenterology will not be available at the hospital through next week. If further evaluation by gastroenterology is required the patient will need transfer as per the primary team's discretion. Dr. Maribeth Jimenez I agree with the dictator's note, documented as a scribe by Araseli Bravo.
[2024-10-20] MEDS ORDERED: LIDOCAINE 2% (PF) 20 MG/ML 5 ML VIAL ONE (12:55)
[2024-10-20] MEDS ORDERED: PROPOFOL 10 MG/ML 20 ML VIAL IV ONE (12:55)
[2024-10-20] MEDS: IV FLUID CONTINUATION 1,000 ML IV ONE (13:01)
--- NOTE | 2024-10-20 13:13 | P.PCN ---
Date of Procedure: 10/20/24 Procedure(s) Performed: BRIEF HISTORY: Patient is a 62-year-old, pleasant, white female admitted to hospital with dark tarry stools that happened yesterday morning. She had 3 episodes and came to the emergency room. Initial hemoglobin was 10 g/dL and dropped to 9.7 g/dL. She is Upper Endoscopy to Evaluate Further PREOPERATIVE DIAGNOSIS: Black tarry stools of 1 day duration. IV sedation per anesthesia. PROCEDURE: After informed consent was obtained, the patient was brought into the endoscopy unit. IV sedation was administered by Anesthesia under continuous monitoring. Initially the Olympus GIF-140 video endoscope was inserted into the mouth. Esophagus intubated without any difficulty. It was gradually advanced into the stomach and duodenum and carefully examined. The bulb and the second part of the duodenum appeared normal. The scope at this time was withdrawn to the stomach, adequately insufflated with air, and upon careful examination, mucosa of the antrum, body, had multiple small gastric polyps which were biopsied. Rest of the cardia and the fundus appeared normal. The scope was then withdrawn into the esophagus. Small hiatal hernia noted. The GE junction was located at 39 cm from the incisors. The esophagus appeared normal. There were no erosions or ulcerations seen and the patient tolerated the procedure well. IMPRESSION: 1. Small hiatal hernia. 2. Multiple small gastric polyps status post biopsy. RECOMMENDATIONS: The findings of this examination were discussed with the patient as well as her family. She was advised to follow with the biopsy results. Will start on clear liquids and proceed with a colonoscopy tomorrow..
[2024-10-20] MEDS: PEG 3350 (236 GM/BTL) + LYTES 4,000 ML BOTTLE PO ONE (17:57)
[2024-10-20] MEDS ORDERED: IOPAMIDOL CONTRAST (ORAL USE) VIAL PO PRN (18:58)
[2024-10-20] MEDS: LATANOPROST 0.005% OPHTH DROPS 2.5 ML BTL BOTH EYES SCH (21:25)
[2024-10-21] MEDS ORDERED: PROPOFOL 10 MG/ML 20 ML VIAL IV ONE (06:55)
[2024-10-21] MEDS: LACTATED RINGERS 1,000 ML IV ONE (06:58)
--- NOTE | 2024-10-21 07:21 | P.PCN ---
Date of Procedure: 10/21/24 Procedure(s) Performed: BRIEF HISTORY: Patient is a 69-year-old pleasant white female admitted to the hospital with acute GI bleed. She had few episodes of darker stool associated with some cramping abdominal pain. She had an upper endoscopy done yesterday that was unremarkable. She is scheduled for a colonoscopy to evaluate further. PROCEDURE PERFORMED: Colonoscopy with biopsy and snare polypectomy. PREOPERATIVE DIAGNOSIS: Acute GI bleed and a negative upper endoscopy done yesterday. IV sedation per Anesthesia. PROCEDURE: After informed consent was obtained, the patient, was brought into the endoscopy unit. IV sedation was administered by Anesthesia under continuous monitoring. Digital rectal examination was normal. Initially the Olympus CF-160 flexible video colonoscope was then inserted in the rectum, gradually advanced into the cecum without any difficulty. Careful examination was performed as the scope was gradually being withdrawn. Ileocecal valve and the appendiceal orifice were visualized and appeared normal. Prep was excellent. Mucosa of the cecum, appeared normal. In the ascending colon there was a 7 mm and 1 cm polyp removed by hot snare polypectomy. In the hepatic flexure there were 4 polyps measuring between 5 to 7 mm in size all which were removed by cold snare polypectomy. Rest of the ascending colon, transverse colon, appeared normal. No segmental colitis involving the distal descending colon and proximal sigmoid colon extending from 20 to 40 cm from the anal verge with mucosal erythema, friability and congestion of the mid appearing mucosa consistent with acute ischemic colitis and biopsies were done from this area. The distal sigmoid colon, and rectum appeared normal. Retroflexion was performed in the rectum and no lesions were seen. The patient tolerated the procedure well. IMPRESSION: Segmental colitis involving the proximal sigmoid colon and distal descending colon extending from 20 to 40 cm from the anal verge with mucosal erythema, friability and some congestion of the mucosa consistent with acute ischemic colitis status post biopsies 4 polyps in the hepatic flexure measuring between 5 to 7 mm in size status post snare polypectomy 7 mm and 1 cm ascending colon polyp status post hot, hot snare polypectomy RECOMMENDATIONS: Findings of this examination were discussed with the patient as well as the family. She was advised to follow-up with the biopsy results. She will be seen in the office in 2 weeks.) advance as tolerated. She can be discharged home today and follow-up in the office in 2 weeks. If the biopsies reveal adenoma she can have repeat colonoscopy in 3 years..
[2024-10-21 07:53] VITALS: RESP 16; TEMP 98
[2024-10-21 09:05] VITALS: BP 119/70; PULSE 74
[2024-10-21 12:40] LABS: Basophils # (A) 0.01 X 10*3/uL (0.00-0.10); Basophils % (A) 0.2 %; Eosinophils # (A) 0 X 10*3/uL (0.04-0.35); Eosinophils % (A) 0 %; HCT 25.5 % (37.2-46.3); HGB 8.3 g/dL (12.0-15.0); Immature Grans, Automated 0.50 %; Lymphocytes # (A) 1.03 X 10*3/uL (0.90-5.00); Lymphocytes % (A) 24.2 %; MCH 34.7 pg (27.0-32.0); MCHC 32.5 g/dL (32.0-37.0); MCV 106.7 FL (80.0-97.0); Macrocytosis (M) 2+ (None Seen); Monocytes # (A) 0.22 X 10*3/uL (0.20-1.00); Monocytes % (A) 5.2 %; NRBC Per 100 WBC 0 X 10*3/uL (0.00-0.01); Neutrophils # (A) 2.98 X 10*3/uL (1.80-7.70); Neutrophils % (A) 69.9 %; Platelet Count 82 X 10*3/uL (140-440); RBC 2.39 X 10*6/uL (4.10-5.20); RDW 13.3 % (11.5-14.5); WBC 4.26 X 10*3/uL (4.50-10.00)
[2024-10-21 13:02] LABS: ALT 12 U/L (8-44); AST 18 U/L (13-35); Albumin 3.8 g/dL (3.8-4.9); Albumin/Globulin Ratio 2.00 Ratio (1.60-3.17); Alkaline Phosphatase 50 U/L (41-126); Anion Gap 14.50 mmol/L (4.00-12.00); BUN/Creat Ratio 22.83 Ratio (12.00-20.00); Blood Urea Nitrogen 13.7 mg/dL (9.0-27.0); Calcium 8.4 mg/dL (8.7-10.3); Carbon Dioxide 22.5 mmol/L (21.6-31.8); Chloride 103 mmol/L (96-109); Globulin 1.9 g/dL (1.6-3.3); Glucose 80 mg/dL (70-110); Potassium 3.9 mmol/L (3.5-5.5); Sodium 140 mmol/L (135-145); Total Protein 5.7 g/dL (6.2-8.2)
--- NOTE | 2024-10-21 15:21 | HP ---
HISTORY AND PHYSICAL CHIEF COMPLAINT: GI bleed and melena. HISTORY OF PRESENT ILLNESS: This 69-year-old woman with a past medical history of multiple problems, noted to have blood in the stool. The patient noted melenic stool. The patient also had some diarrhea. The patient came to [facility], admitted for evaluation and treatment. The patient has some abdominal cramping also. Dr. Jimenez has seen the patient, recommend upper endoscopy. The patient also had chronic anemia. Hemoglobin is currently 10. There is no history of fever, rigors, or chills at this time. PAST MEDICAL HISTORY: Reviewed, include hypertension, anemia, Parkinson. Rest of the history and chart is also reviewed. HOME MEDICATIONS: Reviewed, include omeprazole. Dose and rest of medications reviewed. ALLERGIES: None. FAMILY HISTORY: History of non-Hodgkin lymphoma in the family. SOCIAL HISTORY: No smoking or alcohol. REVIEW OF SYSTEMS: A 14-point review of systems negative except as mentioned earlier. PHYSICAL EXAMINATION: VITAL SIGNS: Pulse 72, blood pressure 100/65, and respirations 16. HEENT: Conjunctivae normal. NECK: No JVD. CARDIOVASCULAR: S1, S2. RESPIRATIONS: Breath sounds diminished at the bases. ABDOMEN: Soft, nontender. No mass palpable. No ascites. Bowel sounds present. LEGS: No edema NERVOUS SYSTEM: Nonfocal. LABORATORY DATA: Hemoglobin is 10 and platelets 104. ASSESSMENT AND PLAN: 1. Rectal bleeding with anemia, rule out acute GI bleed. 2. Acute on chronic anemia. 3. Thrombocytopenia. 4. Parkinson. 5. History of hypertension. 6. Hiatal of hernia. 7. History of mild. MMODL / IJN: [id number] /
--- NOTE | 2024-10-23 11:35 | P.DS ---
Providers Date of admission: 10/19/24 14:26 Expected date of discharge: 10/21/24 Attending physician: Rosita Osorio Consults: 10/20/24 10:27 Consult Physician Urgent Consulting Provider: Jane Jimenez Consult Reason/Comments: GI bleed Do you want consulting provider notified?: Already Contacted Primary care physician: Melina Santa Hospital Course: Final diagnosis Rectal bleeding with anemia, secondary to acute ischemic colitis status post colonoscopy and EGD, biopsies obtained and pending Acute on chronic anemia Thrombocytopenia Parkinson's disease with tremors noted History of hypertension History of hiatal hernia Mild protein calorie malnutrition with a BMI of 24.6 GI prophylaxis DVT prophylaxis Full code Discharge disposition Patient is being discharged in a stable condition with guarded prognosis to home. Patient will follow-up with Dr. Santa in the outpatient setting upon discharge. Patient is to continue with current soft diet and outpatient follow- up with GI as scheduled. Recommend repeat labs in the next few days to monitor hemoglobin closely. Total time taken is greater than 35 minutes. Hospital course This is a 69-year-old female who was recently admitted with anemia with concerns of GI bleed status post EGD with multiple biopsies obtained and did undergo colonoscopy today as well which revealed segmental colitis involving the proximal sigmoid colon and distal descending colon from the anal verge with mucosal erythema friability and some congestion of mucosa consistent with acute ischemic colitis and did undergo multiple biopsies. Hemoglobin is stable status post 2 units of PRBCs and has been advised to follow-up in the outpatient setting for biopsy results. Patient has been cleared by consultations and would like to go home. Please refer to consultation notes for further HPI. Currently no reports of chest pain, shortness of breath, or palpitations. Patient is afebrile. No reports of nausea or vomiting and patient is tolerating diet. Patient will be discharged home today. Guarded prognosis and high risk for readmissions given anemia and significant comorbidities. Recommend repeat labs outpatient to monitor hemoglobin. Physical exam: Gen: This is a 69-year-old female who is awake, alert and oriented x 2, baseline, well-developed, elderly appearing, thin built HEENT: Head is atraumatic, normocephalic. Pupils equal, round. Sclerae is anicteric. NECK: Supple. No JVD. No lymphadenopathy. No thyromegaly. LUNGS: Clear to auscultation. No wheezes or rhonchi. No intercostal retractions. HEART: Regular rate and rhythm. No murmur. ABDOMEN: Soft. Bowel sounds are present. No masses. No tenderness. EXTREMITIES: No pedal edema. No calf tenderness. NEUROLOGICAL: Patient is awake, alert and oriented x3. Cranial nerves 2 through 12 are grossly intact. Diffusely weak Please refer to medication reconciliation sheet for a list of medications. The impression and plan of care has been dictated by Ellyn Titus, Nurse Practitioner as directed. Dr. Devon MD I have performed a history and examination and MDM of this patient, discussed the same with the dictator, and agree with the dictator's assessment and plan as written ,documented as a scribe. Based on total visit time, I have performed more than 50% of the visit. Patient Condition at Discharge: Fair Plan - Discharge Summary Discharge Rx Participant: Yes New Discharge Prescriptions: New Pantoprazole [Protonix] 40 mg PO BID 15 Days #30 tab cefuroxime axetiL [Ceftin] 500 mg PO BID 5 Days #10 tab metroNIDAZOLE [Flagyl] 500 mg PO TID 5 Days #15 tab Continue Brimonidine Tartrate/Timolol [Brimonidine-Timolol 0.2%-0.5%] 1 drop BOTH EYES BID Omeprazole 20 mg PO DAILY Carbidopa-Levodopa 25-100 mg [Sinemet 25-100 mg] 1 tab PO TID Latanoprost [Latanoprost 0.005%] 1 drop BOTH EYES HS Dorzolamide HCl/Pf [Dorzolamide 2% Eye Drop] 1 drop BOTH EYES BID Metoprolol Succinate (ER) [Toprol XL] 12.5 mg PO BID #30 tab Discontinued lisinopriL [Zestril] 10 mg PO DAILY Discharge Medication List Brimonidine Tartrate/Timolol [Brimonidine-Timolol 0.2%-0.5%] 1 drop BOTH EYES BID 11/20/22 [History] Metoprolol Succinate (ER) [Toprol XL] 12.5 mg PO BID #30 tab 11/25/22 [Rx] Carbidopa-Levodopa 25-100 mg [Sinemet 25-100 mg] 1 tab PO TID 12/22/22 [History] Omeprazole 20 mg PO DAILY 12/22/22 [History] Dorzolamide HCl/Pf [Dorzolamide 2% Eye Drop] 1 drop BOTH EYES BID 10/19/24 [History] Latanoprost [Latanoprost 0.005%] 1 drop BOTH EYES HS 10/19/24 [History] Pantoprazole [Protonix] 40 mg PO BID 15 Days #30 tab 10/21/24 [Rx] cefuroxime axetiL [Ceftin] 500 mg PO BID 5 Days #10 tab 10/21/24 [Rx] metroNIDAZOLE [Flagyl] 500 mg PO TID 5 Days #15 tab 10/21/24 [Rx] Follow up Appointment(s)/Referral(s): Jane Jimenez MD [STAFF PHYSICIAN] - 11/01/24 3:30 pm Melina Santa MD [Primary Care Provider] - 1-2 days Ambulatory/Diagnostic Orders: Complete Blood Count w/diff [LAB.AMB] Time Frame: 2 Days, Location: None Selected Patient Instructions/Handouts: Soft Diet (DC), Colonoscopy (DC) Activity/Diet/Wound Care/Special Instructions: Activity limited until follow-up Follow-up with primary care provider on discharge Follow-up with GI outpatient for biopsy results Will continue antibiotics for 5-day course Continue with soft diet and slowly advance as tolerated Discharge Disposition: HOME SELF-CARE
--- NOTE | 2024-10-26 12:00 | CDI ---
Documentation Clarification Form Date: 10/21/24 From: Pearl Savage Admit Date: 10/19/2024 02:26:00 PM Patient Name: Violeta Andrews Visit Number: [id number] Discharge Date: 10/21/2024 01:12:00 PM ATTENTION: The Clinical Documentation Specialists (CDI) and [facility] Coding Staff appreciate your assistance in clarifying documentation. Please respond to the clarification below the line at the bottom and electronically sign. The CDI & [facility] Coding staff will review the response and follow-up if needed. Please note: Queries are made part of the Legal Health Record. If you have any questions, please contact the author of this message via ITS. Doctor/Provider: Rosita Osorio, Unspecified acute on chronic anemia is documented in the H&P. Additional specificity regarding the type of anemia is requested. History/Risk Factors: MDS, thrombocytopenia Clinical indicators: Presents with rectal bleeding due to acute segmental ischemic colitis. Labs 10/19-10/21 Hemoglobin: 10.3, 10.0, 9.7, 10.0, 8.3 Hematocrit: 30.1, 28.7, 29.1, 30.0, 25.5 Treatment: IV fluids, monitor of H & H Please clarify the type and acuity of anemia: [ x ] Acute on chronic blood loss anemia secondary to rectal bleeding with acute segmental ischemic colitis [ ] Iron deficiency anemia [ ] Anemia due to Myelodysplastic syndrome [ ] Unable to determine [ ] Other, please specify MTDD
== END 2024-10-21 13:12 | disposition home or self-care (01) | DRG 394 ==
LOC: EC 12:19 → 6NMEDSUR 14:26 → OBSVTOIN 14:26 → 6NMEDSUR 18:30
PROVIDERS: ADMIT Hospitalist; ATTEND Hospitalist
PROC: 0DB78ZX Excision of Stomach, Pylorus, Via Natural or Artificial Opening Endoscopic, Diagnostic (ICD-10-PCS; 2024-10-20)
PROC: 0DBN8ZX Excision of Sigmoid Colon, Via Natural or Artificial Opening Endoscopic, Diagnostic (ICD-10-PCS; principal; 2024-10-21 07:00)
PROC: 0DBK8ZX Excision of Ascending Colon, Via Natural or Artificial Opening Endoscopic, Diagnostic (ICD-10-PCS; principal; 2024-10-21 07:00)
PROC: 0DBM8ZX Excision of Descending Colon, Via Natural or Artificial Opening Endoscopic, Diagnostic (ICD-10-PCS; principal; 2024-10-21 07:00)
DX: K55.031 Focal (segmental) acute (reversible) ischemia of large intestine (principal); D62 Acute posthemorrhagic anemia; E44.1 Mild protein-calorie malnutrition; D69.6 Thrombocytopenia, unspecified; D46.9 Myelodysplastic syndrome, unspecified; G20.A1 Parkinson's disease without dyskinesia, without mention of fluctuations; K21.9 Gastro-esophageal reflux disease without esophagitis; G25.0 Essential tremor; I10 Essential (primary) hypertension; K62.5 Hemorrhage of anus and rectum; H40.9 Unspecified glaucoma; K31.7 Polyp of stomach and duodenum; K63.5 Polyp of colon; K44.9 Diaphragmatic hernia without obstruction or gangrene; Z68.24 Body mass index [BMI] 24.0-24.9, adult; Z79.899 Other long term (current) drug therapy
CPT/HCPCS: 36415; 43239; 45380; 45385; 80048; 80053; 83605; 83735; 84484; 85025; 85027; 85610; 85730; 86850; 86900; 86901; 88305; 99285